=== PATIENT | male | born 1940 | race Caucasian/White ===

== ENCOUNTER 2023-05-03 06:08 | Inpatient (IN) | payer MEDICARE, OTHER, SELFPAY ==
[2023-05-02 20:51] VITALS: BP 148/86
[2023-05-02 21:11] VITALS: BP 104/60
[2023-05-02 22:00] VITALS: BP 123/80; BMI 38.0
[2023-05-02] MEDS: ZOFRAN 4 MG IV (22:03)
[2023-05-02] MEDS: LR 1000 IV (22:05)
[2023-05-02 22:12] LABS: % Basophils 0.2 % (0-2); % Eosinophils 0.1 % (0-6); % Immature Granulocytes 0.1 % (0-0.5); % Lymphocytes 4.4 % (20.5-51.1); % Monocytes 15.5 % (1.7-9.3); % Neutrophils 79.7 % (42.2-75.2); Absolute Lymphocytes 0.4 10^3/uL (1.2-3.4); Absolute Monocytes 1.3 10^3/uL (0.1-0.6); Absolute Neutrophils 6.8 10^3/uL (1.4-6.5); Hematocrit 43.6 % (39.0-52.0); Hemoglobin 15.4 g/dL (13.0-18.0); Mean Corp Hgb Conc. 35.3 g/dL (33.0-37.0); Mean Corpuscular Hgb 34.7 pg (27.0-31.0); Mean Corpuscular Volume 98.2 fL (80.0-94.0); Mean Platelet Volume 9.8 fL (7.4-10.4); Nucleated Red Blood Cells % 0 % (-); Platelet Count 179 10^3/uL (130-400); Red Blood Cell Count 4.44 10^6/uL (4.70-6.10); Red Cell Dist. Width 12.8 % (11.5-14.5); White Blood Cell Count 8.5 10^3/uL (4.8-10.8)
[2023-05-02 22:26] LABS: ALT (SGPT) 21 U/L (0-50); AST (SGOT) 29 U/L (17-59); Albumin 4.9 g/dl (3.5-5.0); Alkaline Phosphatase 81 U/L (38-126); Blood Urea Nitrogen 34 mg/dl (9-20); Calcium 10.3 mg/dl (8.4-10.2); Carbon Dioxide 23 mmol/L (22-30); Chloride 101 mmol/L (98-107); Glucose 168 mg/dl (70-99); Lactic Acid 3.4 mmol/L (0.7-2.0); Potassium 4.8 mmol/L (3.5-5.1); Sodium 141 mmol/L (135-145); Total Bilirubin 0.9 mg/dl (0.2-1.3); Total Protein 8.1 g/dl (6.3-8.2); eGFR 54.85
--- NOTE | 2023-05-02 22:46 | ED.GENMED ---
History of Present Illness
General
Chief Complaint: Abdominal Symptoms
Time Seen by Provider: 05/02/23 21:32
Travel History
Have you had any contact with someone who has COVID-19?: No
Do you have any symptoms of coronavirus? Fever > 100 degrees, chills, cough, shortness of breath, sore throat, loss of taste or smell, muscle aches, or headache?: No
History of Present Illness
History of Present Illness:
83-year-old male with history of a partial colon resection, hypertension, and hyperlipidemia presents to the emergency department for evaluation of nausea and vomiting ongoing for the past 24 hours. He reports generalized abdominal pain as well.
Did have a small bowel movement earlier this morning but denies any flatus or diarrhea since that time. Noted to be febrile on arrival, patient notes he feels weak but did not note a fever. Denies any chest pain or shortness of breath. Distant
history of small bowel obstruction that was treated nonoperatively
Past History
Past History
ED Past Medical History: CAD, Cancer (colon cancer), CHF, HTN, Hypercholesterolemia and Other (BPH)
ED Past Surgical History: Orthopedic (Lumbar decompression laminectomy 2010 and 2014) and Other (COLON RESECTION)
Social History
Tobacco: Former smoker
Alcohol: None
Drug: None
Personal:
Living: alone
Employment: Employed
Family History
Family History: Other
Review of Systems
Review of Systems
Allergies reviewed?: Yes
All Other Systems: ROS reviewed and negative except as documented in HPI and ROS
Phy Exam
Physical Exam
Physical Exam:
GEN: Well appearing, NAD, WDWN
Eyes: PERRLA, EOMs intact, no scleral icterus
HENT: NCAT, oral mucosa dry
Lungs: CTAB, no wheezes, rales, rhonchi, normal chest wall excursion
Cardiac: Tachycardic, regular, no murmurs or rubs
Abdomen: Abdomen is soft, minimal tenderness throughout all 4 quadrants, no peritoneal signs or rigidity
Neuro: AO x 3
MSK: No gross deformity or ecchymosis.
Skin: No rashes, petechiae. Normal color, no pallor or jaundice.
Psych: Calm, cooperative, proper hygiene
Course
Orders/Labs/Results
Orders:
Orders
05/02/23 20:53
Electrocardiogram (*1) Urgent
Reason for Study: Bradycardia / Tachycardia
EKG- Treatment ONCE
05/02/23 21:44
CT Abd/Pel (IV only)-DH only Urgent
Comment:
Reason For Exam: abd pain, vomiting
Ondansetron Injectable [Zofran] 4 mg IV NOW STA
05/02/23 21:45
Blood Culture Q30M
[facility] Source: Blood/Venous
Specimen Description:
Lactated Ringers [Lr] 1,000 ml IV BOLUS
05/02/23 22:01
Complete Blood Count/With Diff Urgent
Comprehensive Metabolic Panel Urgent
Lactic Acid Q4H
Comment: CANCEL 2nd LACTIC ACID IF 1st LACTIC ACID IS LESS THAN 2
Blood Culture Q30M
[facility] Source: Blood/Venous
Specimen Description:
05/02/23 22:49
Acetaminophen [Tylenol] 650 mg PO NOW STA
Lactated Ringers [Lr] 500 ml IV BOLUS
05/03/23 00:13
NG Tube [GI tube insertion- Treatment] ONCE
05/03/23 01:45
Lactic Acid Q4H
Comment: CANCEL 2nd LACTIC ACID IF 1st LACTIC ACID IS LESS THAN 2
Abnormal Lab Results
05/02/23
22:01
RBC 4.44 L 10^6/uL
(4.70-6.10)
MCV 98.2 H fL
(80.0-94.0)
MCH 34.7 H pg
(27.0-31.0)
Absolute Neuts (auto) 6.8 H 10^3/uL
(1.4-6.5)
Absolute Lymphs (auto) 0.4 L 10^3/uL
(1.2-3.4)
Absolute Monos (auto) 1.3 H 10^3/uL
(0.1-0.6)
Neutrophils % 79.7 H %
(42.2-75.2)
Lymphocytes % 4.4 L %
(20.5-51.1)
Monocytes % 15.5 H %
(1.7-9.3)
BUN 34 H mg/dl
(9-20)
Glucose 168 H mg/dl
(70-99)
Lactic Acid 3.4 H mmol/L
(0.7-2.0)
Calcium 10.3 H mg/dl
(8.4-10.2)
05/02/23 22:01
05/02/23 22:01
Vital Signs
Initial and Last Documented VS:
Initial Vital Signs
Temp Pulse Resp BP Pulse Ox
101.1 F H 121 18 148/86 98
05/02/23 20:51 05/02/23 20:51 05/02/23 20:51 05/02/23 20:51 05/02/23 20:51
Last Documented Vital Signs
Temp Pulse Resp BP Pulse Ox
101.1 F H 97 24 130/72 91
05/02/23 20:51 05/03/23 00:30 05/03/23 00:30 05/03/23 00:00 05/03/23 00:30
MDM/Problems Addressed
MDM/Problems Addressed:
Initial evaluation the patient was felt to most likely be displaying signs and symptoms of gastroenteritis/viral GI illness given acute fever however imaging was ordered due to prior history of small bowel obstruction and significant abdominal
surgical history. CT ultimately showed a definitive small bowel obstruction with a transition point. On reassessment the patient's pain is improved however he does have some reproducible tenderness. NG tube placed with large amount of air and
small volume of liquid returning. Will be admitted to the hospitalist service, general surgery made aware for consultation.
*Critical Care Note
Total Time (30-74mins, 75-104mins- exclusive of procedures): Not Applicable
ED Attending Note
-
Portions of this chart may have been created with voice recognition software.� Occasional wrong word or��sound alike� substitutions may have occurred due to the inherent limitations of voice recognition software.
Discharge Plan
Departure
Patient Disposition: Admit
Date of Disposition: 05/03/23
Time of Disposition: 00:37
Presentation/result/management discussed w/ accepting MD/DO: Hospitalist
Discharge Problem:
Small bowel obstruction
Prescriptions:
No Action
amlodipine 2.5 MG tablet
2.5 mg PO DAILY
allopurinol 300 MG tablet
300 mg PO DAILY
escitalopram oxalate 10 MG tablet
10 mg PO DAILY
gabapentin 300 MG capsule
300 mg PO BID
aspirin 81 MG tablet,chewable
81 mg PO DAILY
fluticasone propionate 1 SPRAY spray,suspension
1 spray intranasal DAILYPRN PRN (Reason: nasal congestion)
rosuvastatin 20 MG tablet
20 mg PO QPM Qty: 90 5RF
ferrous sulfate [FeroSul] 325 mg (65 mg iron) Tablet
325 mg PO DAILY Qty: 30 0RF
Eliquis 2.5 mg Tablet
2.5 mg PO BID
pantoprazole 40 mg tablet,delayed release (DR/EC)
40 mg PO DAILY
furosemide 20 mg tablet
20 mg PO DAILY
metoprolol succinate 25 MG tablet extended release 24 hr
25 mg PO BID
miconazole nitrate [Miconazorb AF] 2 % Powder
1 applic topical BID Qty: 85 0RF
cyanocobalamin (vitamin B-12) 1,000 mcg Tablet
1,000 mcg PO DAILY Qty: 30 0RF
Referrals:
Radhames Mariano, [Family Provider] -
Interventions
Interventions:
*Risk Screen - Suicide Last Done: 05/02/23 20:51
*General Assessment Last Done: 05/02/23 20:51
*Neglect/Abuse Screening Last Done: 05/02/23 20:51
ED- Fall Risk Assessment Last Done: 05/02/23 22:00
*ED COVID-19 Vaccine History Last Done: 05/02/23 20:51
IX-Pedxal-Yozzyysqmz Assessment Last Done: 05/02/23 22:00
[2023-05-02] MEDS: TYLENOL 650 MG PO (22:55)
[2023-05-02 23:00] VITALS: BP 113/52
[2023-05-03] VITALS (15 sets, daily range): BP systolic 129–179; BP diastolic 72–105; BMI 37.3
[2023-05-03] MEDS: LR 500 IV (00:23)
--- NOTE | 2023-05-03 04:48 | HPS.HSE ---
Family Physician
-
Family Physician: Radhames Mariano
Chief Complaint
-
N/V
History of Present Illness
Patient is an 83y M with PMH significant for colon cancer s/p resection, CHF and DM-II who presents to ED complaining of N/V x 24 hours. Patient states that he felt fairly well on Thursday evening when going to bed. He woke around 2 AM on
Thursday with nausea and has had multiple episodes of non-bloody, bilious emesis. Patient has attempted to take in oral fluids over the past 24 hours, but this only resulted in additional emesis. He notes some crampy very low abdominal / pelvic
pain that preceded episodes of emesis.
Patient states that he moved his bowels around 3 AM and this was fairly normal appearing. He has not had any BM or passed any flatus since that time.
With ongoing N/V and inability to tolerate PO, patient presented to the ED for further evaluation.
He states that he has started to feel somewhat tremulous and notes that he has had this sensation in the past with dehydration.
Patient notes that he has had one prior SBO. This resolved with supportive care alone.
He had a colon resection done several years ago and no other intra-abdominal surgeries.
He denies any recent sick contacts.
He has some cough / congestion that he states has only developed since his arrival in the ED. He denies any evident episodes of choking / aspiration in the past 24 hours.
Medical History
Past Medical History
Past Medical History: Reports Other
Additional Past Medical History:
Colon Cancer
Chronic HFpEF
Hypertension
Dyslipidemia
BPH
Lumbar DDD
ASCVD
Aortic stenosis
Complete heart block with permanent pacemaker
Sleep apnea
Hypothyroidism
Spinal stenosis
Diabetes mellitus type 2
Obesity
Past Surgical History: Reports Other
Additional Past Surgical History:
Partial Colectomy
Lumbar Laminectomy
PTCA with Stent
PPM Placement
Left Shoulder Surgery
Left Eye Surgery
Social History
Tobacco: Non-smoker
Alcohol: None
Drug: None
Family History
Family History: Not pertinent
Allergies / Home Medications
Allergies reflects when Allergies were last updated in [employer].
Home Medications with original date entered in [employer]
Allergy/Medication List:
Allergies
Allergy/AdvReac Type Severity Reaction Status Date / Time
methimazole Allergy serum Verified 01/11/23 11:10
sickness
oxycodone HCl [From Percocet] Allergy hyperactivi Verified 01/11/23 11:10
ty
Sulfa (Sulfonamide Allergy serum Verified 01/11/23 11:10
Antibiotics) sickness
trimethoprim Allergy Unknown Verified 01/11/23 11:10
Home Medications
allopurinol 300 mg tablet 300 mg PO DAILY Gout 06/19/17
escitalopram oxalate 10 mg tablet 10 mg PO DAILY Mental Health/Anxiety 06/19/17
aspirin 81 mg chewable tablet 81 mg PO DAILY Blood clot prevention/tx 03/18/21
gabapentin 300 mg capsule 300 mg PO BID Neurological Condition 03/18/21
rosuvastatin 20 mg tablet 20 mg PO QPM #90 tabs 03/19/21
ferrous sulfate 325 mg (65 mg iron) tablet (FeroSul) 325 mg PO DAILY #30 tabs 03/09/22
apixaban 2.5 mg tablet (Eliquis) 2.5 mg PO BID Blood Clot Prevention/Tx 01/11/23
furosemide 20 mg tablet 20 mg PO DAILY Fluid Retention/Swelling 01/11/23
pantoprazole 40 mg tablet,delayed release 40 mg PO DAILY Gastrointestinal Issue 01/11/23
metoprolol succinate 25 mg tablet,extended release 24 hr 25 mg PO BID Heart Failure 01/12/23
cyanocobalamin (vitamin B-12) 1,000 mcg tablet 1,000 mcg PO DAILY #30 tabs 01/19/23
Review of Systems
-
History Source: Patient
A 12 point ROS was completed and negative except as noted: Yes
Constitutional: Reports Weight Loss (patient notes 6 lbs weight loss in the past 24 hours.) and Fatigue; Denies Fever
EENT: Denies Sore Throat
Respiratory: Reports Cough; Denies Hemoptysis or Trouble Breathing
Cardiac: Denies Chest Pain or Palpitations
Abdomen/GI: Reports Abdominal Pain, Nausea and Vomiting; Denies Diarrhea, Constipated, Bloody Stools or Black Stools
: Denies Dysuria or Flank Pain
Musculoskeletal: Denies Joint Pain or Edema
Neurological: Reports Other (Tremulous); Denies Dizzy or Headache
Psych: Denies Depression or Anxiety
Physical Exam
Vital Signs
Vital Signs
Temp Pulse Resp BP Pulse Ox
101.1 F H 125 31 132/74 91
05/02/23 20:51 05/03/23 03:15 05/03/23 03:15 05/03/23 03:00 05/03/23 03:15
Physical Exam
General: Other (83y M in no acute distress at present.)
HEENT: Moist mucous membranes and PERRLA
Respiratory: Other (Decreased BS at bases. Otherwise clear.)
Cardiac: S1/S2, Irregular Rhythm and Murmur (II/ BRENDAN)
GI: Other (Abdomen is distended and tympanic. Pos tenderness along lower abdomen. Pos high-pitched bowel sounds.)
Musculoskeletal: No Clubbing, No Cyanosis and No Edema
Neuro: AO x 3
Laboratory Results
-
05/02/23 22:01
05/02/23 22:01
Laboratory Results
Lactic Acid 3.4 mmol/L (0.7-2.0) H 05/02/23 22:01
Total Bilirubin 0.9 mg/dl (0.2-1.3) 05/02/23 22:01
AST 29 U/L (17-59) 05/02/23 22:01
ALT 21 U/L (0-50) 05/02/23 22:01
Alkaline Phosphatase 81 U/L (38-126) 05/02/23 22:01
Impression/Plan
-
A/P: Patient is an 83y M with PMH significant for colon cancer s/p resection, hypertension and CHF who presents to ED complaining of N/V for the past 24 hours.
SBO
Intractable N/V secondary to the above
- Admit for further evaluation and treatment.
- Maintain NG decompression and follow for BM, flatus, etc.
- CT scan shows dilated SB loops with apparent transition in the right mid-abdomen.
- Surgery evaluation in the AM.
- Follow for clinical improvement.
Fever
- ? GI in origin - symptoms initially seemed c/w gastroenteritis - versus pulmonary pneumonia / aspiration.
- IV abx for now with Zosyn.
- Check CXR. Check COVID.
- Follow fever curve and follow for any new / worsening focal symptoms.
- Follow-up culture data.
Chronic HFpEF
- Stable. Not volume overloaded at present - s/p volume losses and 6 pounds weight loss in the past 24 hours.
- Hold diuretics.
- Gentle IVFs overnight.
- Follow I/Os, daily weights, etc.
ASCVD
- Stable. No chest pain or dyspnea.
- Continue daily ASA and other CV medications.
Paroxysmal Atrial Fibrillation
Heart Block s/p PPM
- Stable. Paced rhythm on tele.
- Hold Eliquis acutely in the event that any intervention is needed.
- Continue metoprolol.
- Monitor on tele.
Benign Hypertension
- Stable. Continue med regimen and adjust as needed.
DM-II
- Stable. Currently diet-controlled and off of all medications.
- Follow glucose and cover with SSI if needed.
Obesity due to excess calories
- Affects all aspects of care.
- Encourage healthy diet and increased activity with goal of weight loss.
DVT Prophylaxis: SCDs while Eliquis on hold.
Code Status: Full
[2023-05-03 05:42] LABS: COVID-19 Antigen Negative (Negative)
[2023-05-03 06:38] LABS: Lactic Acid 1.5 mmol/L (0.7-2.0)
[2023-05-03 09:13] LABS: Glucose - Point of Care 163 mg/dl (70-99)
[2023-05-03] MEDS: ZOSYN 50 IV ×3 (10:12→21:30)
[2023-05-03] MEDS: NSS 1000 IV ×2 (10:13→21:29)
--- NOTE | 2023-05-03 10:39 | CON.GS ---
Addendum entered and electronically signed by Fabien Martinez MD 05/03/23 11:57:
Patient seen and examined with FILE CLERK DATA ENTRY. Agree with assessment plan as documented below.
Patient is an 83 yo M with a PMH of HTN, HLD, CHF, CAD s/p PCI with stent, moderate AAS, NIDDM, JOSE (CPAP), CKD, BPH, and s/p open descending/splenic flexure partial colectomy for a polyp who presents with abdominal pain and distention. Mr. Flores
states that his symptoms began somewhat acutely approximately 24 hours ago. He describes progressive abdominal pain and distention prompting presentation to the ED. Multiple episodes of nausea and vomiting. Passed a small bowel movement
yesterday, but none since. No recent flatus. NGT placed in the ED with mild improvement in symptoms and resolution of nausea.
Of note, he is currently on Eliquis for 'clot prevention' per his Bank Worker; his most recent dosing was yesterday evening
Gen: NAD
Abd: soft, mild tenderness diffusely, distended, tympanitic, non-peritoneal, midline incision well healed
Labs and imaging were reviewed.
Patient is an 83 yo M p/w adhesive SBO.
Natural history and pathophysiology of bowel obstructions was reviewed. Location appears to be in the right mid abdomen, with a transition point appreciated. No radiographic findings concerning for bowel ischemia (pneumatosis) or free air.
Patient clinically stable. Unable to completely explain his fever apart from a SIRS response, and possible aspiration pneumonia, possible infiltrate on CXR and CT (final read on chest x-ray pending). Normal WBC, lactate normalized. Increased
operative risk at this time given recent Eliquis dosage. Recommend a trial of medical management. Will continue to follow. All questions answered.
-- NPO, IVF, NGT decompression
-- No PO contrast to follow-up on repeat X-ray
-- Repeat Abd X-ray to confirm NGT placement
-- Hold Eliquis
Original Note:
Medical History
-
Chief Complaint: abdominal pain
History of Present Illness:
This is an 83 yo male with a h/o descending/splenic flexure colon resection for polyp, HF, CAD with stent 2021, on Eliquis prescribed by his twister operator, and prior SBO's requiring hospitalization in 2017 and 2020 who presents with a little over 24
hour history of abdominal pain which began in the middle of the night awakening him from sleep early Thursday morning. He was able to pass a small BM at that time but has not had a BM or passed flatus since. He notes nausea and vomiting as well
which persisted causing him to present for evaluation. NGT was placed in the ED with improvement in symptoms and resolution of nausea. On exam he has minimal diffuse tenderness with distended, tympanitic abdomen.
Past Medical History
Past Medical History: CAD (stent LAD), CHF, HTN, Hypercholesterolemia, Hypothyroidism, NIDDM and Other (Moderate , CM, JOSE-cpap, CKD, BPH, CHB with PPM)
Past Surgical History: Cardiac (stent, ppm), Orthopedic (Laminectomy x2, left shoulder) and Other (sinus surgery, left eye surgery)
Social History
Tobacco: Non-Smoker
Alcohol: None
Personal:
Family History
Family History: Reviewed & Not Pertinent
Allergies / Home Medications
Allergy/AdvReac Type Severity Reaction Status Date / Time
methimazole Allergy serum Verified 01/11/23 11:10
sickness
oxycodone HCl [From Percocet] Allergy hyperactivi Verified 01/11/23 11:10
ty
Sulfa (Sulfonamide Allergy serum Verified 01/11/23 11:10
Antibiotics) sickness
trimethoprim Allergy Unknown Verified 01/11/23 11:10
Medication Instructions Recorded Confirmed Type
allopurinol 300 mg tablet 300 mg PO DAILY Gout 06/19/17 05/03/23 History
escitalopram oxalate 10 mg tablet 10 mg PO DAILY Mental 06/19/17 05/03/23 History
Health/Anxiety
aspirin 81 mg chewable tablet 81 mg PO DAILY Blood clot 03/18/21 05/03/23 History
prevention/tx
gabapentin 300 mg capsule 300 mg PO BID Neurological 03/18/21 05/03/23 History
Condition
rosuvastatin 20 mg tablet 20 mg PO QPM #90 tabs 03/19/21 05/03/23 Rx
ferrous sulfate 325 mg (65 mg 325 mg PO DAILY #30 tabs 03/09/22 05/03/23 Rx
iron) tablet (FeroSul)
apixaban 2.5 mg tablet (Eliquis) 2.5 mg PO BID Blood Clot 01/11/23 05/03/23 History
Prevention/Tx
furosemide 20 mg tablet 20 mg PO DAILY Fluid 01/11/23 05/03/23 History
Retention/Swelling
pantoprazole 40 mg tablet,delayed 40 mg PO DAILY Gastrointestinal 01/11/23 05/03/23 History
release Issue
metoprolol succinate 25 mg 25 mg PO BID Heart Failure 01/12/23 05/03/23 History
tablet,extended release 24 hr
cyanocobalamin (vitamin B-12) 1,000 mcg PO DAILY #30 tabs 01/19/23 05/03/23 Rx
1,000 mcg tablet
Review of Systems
-
History Source: Patient
All other systems: Negative unless noted
A 10 point review of systems was completed, and was negative except as per HPI.
Physical Exam
Vital Signs
Temp Pulse Resp BP Pulse Ox
101.1 F H 82 26 170/84 88
05/02/23 20:51 05/03/23 09:30 05/03/23 09:30 05/03/23 08:00 05/03/23 08:30
05/02/23 05/03/23 05/04/23
05:59 06:59 06:59
Actual Weight
Body Mass Index (BMI) 38.0
Lab Results
05/02/23 22:01
05/02/23 22:01
WBC 8.5 10^3/uL (4.8-10.8) 05/02/23 22:
Hgb 15.4 g/dL (13.0-18.0) 05/02/23:
Hct 43.6 % (39.0-52.0) 05/02/23 22:
Plt Count 179 10^3/uL (130-400) 05/02/23 22:
Abs Immat Gran (auto) 0.0 10^3/uL (0-0.05) 05/02/23:
Neutrophils % 79.7 % (42.2-75.2) H 05/02/23 22:
Physical Exam
General: Well Developed and Well Nourished
HEENT: Moist Mucous Membranes
Respiratory: Non Labored Respirations
GI: Soft, Tender (mild generalized, FILE CLERK DATA ENTRY) and Distended (tympanitic)
Skin: Warm and Dry
Neuro: Awake, Alert and AO x 3
Psych: Calm
Data Reviewed
-
CT Scan: Image Personally Visualized and interpreted, Report Reviewed by me, Discussed with Physician and Discussed with Patient
Labs: Labs Reviewed by me, Discussed with Physician and Discussed with Patient
Old Records: Reviewed
Assessment / Plan
-
This is an 83 yo male with a h/o descending/splenic flexure colon resection for polyp, HF, , CAD with stent 2021, on Eliquis prescribed by his twister operator, and prior SBO's requiring hospitalization in 2017 and 2020 who presents with n/v and
abdominal pain. CT imaging reviewed and consistent with small bowel obstruction with transition point in the right midabdomen likely secondary to adhesions from prior surgery. No free air or evidence of bowel threat noted. AFVSS, No leukocytosis.
Symptoms improving with NGT placement.
--No emergent plans for surgery today, will follow with supportive care for resolution. Please hold Eliquis in case surgery is needed this admission
--Continue NPO with NGT to LIWS
--IVF while NPO
--Medical management as per primary team
[2023-05-03 14:32] LABS: Glucose - Point of Care 140 mg/dl (70-99)
--- NOTE | 2023-05-03 15:16 | W.PN.HOSP.TC ---
Today's Communication/Plan
-
continue NG tube decompression
Assessment / Plan
Assessment / Plan
A/P:� Patient is an 83y M with PMH significant for s/p resection of descending colon/splenic flexure for extensive benign polyp 2000, hypertension and CHF who presents to ED complaining of N/V for the past 24 hours.
SBO
Intractable N/V secondary to the above
�- Maintain NG decompression and follow for BM, flatus, etc.
�- CT scan shows: 1). Mid small bowel obstruction with transition point in the right right midabdomen
2). Moderate interstitial airway disease at the basilar portion of the right middle lobe worrisome for pneumonia
3). Bilateral renal cysts measuring up to 4 cm
�- Surgery evaluation noted and appreciated
�- Follow for clinical improvement.
Fever
�- ? GI in origin - symptoms initially seemed c/w gastroenteritis - versus pulmonary pneumonia / aspiration.
�- IV abx for now with Zosyn.
Neg COVID.
�- Follow fever curve and follow for any new / worsening focal symptoms.
�- Follow-up culture data.
Chronic HFpEF
�- Stable.� Not volume overloaded at present - s/p volume losses and 6 pounds weight loss in the past 24 hours.
�- Hold diuretics.
�- Gentle IVFs .
�- Follow I/Os, daily weights, etc.
ASCVD
�- Stable.� No chest pain or dyspnea.
�- Continue daily ASA and other CV medications.
Paroxysmal Atrial Fibrillation
Heart Block s/p PPM
�- Stable.� Paced rhythm on tele.
�- Hold Eliquis acutely in the event that any intervention is needed.
�- Continue metoprolol.
�- Monitor on tele.
Benign Hypertension
�- Stable. Continue med regimen and adjust as needed.
DM-II
�- Stable.� Currently diet-controlled and off of all medications.
�- Follow glucose and cover with SSI if needed.
Obesity due to excess calories
�- Affects all aspects of care.
�- Encourage healthy diet and increased activity with goal of weight loss.
DVT Prophylaxis:� SCDs while Eliquis on hold.
Code Status:� Full
Anticipated Discharge: > 48 hours
Subjective/Interval History
-
Date of Service: May 03, 2023
No BM or flatus since onset of abdominal distention
Objective Data
-
Vital Signs:
Vital Signs
Temp Pulse Resp BP Pulse Ox
99.5 F 82 18 150/79 92
05/03/23 14:52 05/03/23 14:52 05/03/23 14:52 05/03/23 14:52 05/03/23 14:52
I&O
05/02/23 05/03/23 05/04/23
05:59 06:59 06:59
Output Total 800 / 800
Balance -800 / -800
Review of Systems
-
History Source: Patient and Coordinated Provider
Constitutional: Reports Fever (101.1 at 20:51)
EENT: Reports No Symptoms Reported
Respiratory: Reports No Symptoms
Cardiac: Reports No Symptoms
Abdomen/GI: Reports Abdominal Pain, Nausea, Constipated and Bloated
Genitourinary: Reports No Symptoms
Physical Exam
-
General: Well Developed, Well Nourished and No Apparent Distress
HEENT: Normocephalic, Atraumatic and Moist Mucous Membranes
Respiratory: Clear to Auscultation
Cardiac: Regular Rhythm and S1/S2
GI: Nontender; Negative Nondistended or Normal Bowel Sounds (markedly diminished bowel sounds)
Skin: Warm and Dry
Neuro: Awake, Alert and Oriented
[2023-05-03] MEDS: COMPAZINE 5 MG IV (17:57)
[2023-05-03] MEDS: LOPRESSOR 5 MG IV (20:36)
[2023-05-04] LABS: Glucose - Point of Care 133 mg/dl (70-99)
[2023-05-04] MEDS: NOVOLOG FLEXPEN-LOW RESISTANCE SC ×4 (00:01→16:43)
[2023-05-04] MEDS: LOPRESSOR 5 MG IV ×4 (02:14→21:26)
[2023-05-04 03:03] VITALS: BP 170/83
[2023-05-04] MEDS: ZOSYN 50 IV ×4 (03:30→21:25)
[2023-05-04 05:06] VITALS: BMI 36.5
[2023-05-04 05:47] LABS: Glucose - Point of Care 148 mg/dl (70-99)
[2023-05-04 07:20] VITALS: BP 174/99
[2023-05-04 07:23] LABS: Glucose - Point of Care 143 mg/dl (70-99)
[2023-05-04 07:32] LABS: Blood Urea Nitrogen 34 mg/dl (9-20); Calcium 9.7 mg/dl (8.4-10.2); Carbon Dioxide 27 mmol/L (22-30); Chloride 101 mmol/L (98-107); Estimated Creatinine Clearance 44 ml/min; Glucose 156 mg/dl (70-99); Sodium 142 mmol/L (135-145); eGFR 50.18
[2023-05-04 07:41] LABS: Hematocrit 45.4 % (39.0-52.0); Hemoglobin 15.2 g/dL (13.0-18.0); Mean Corp Hgb Conc. 33.5 g/dL (33.0-37.0); Mean Corpuscular Hgb 34.2 pg (27.0-31.0); Mean Corpuscular Volume 102.3 fL (80.0-94.0); Mean Platelet Volume 10.2 fL (7.4-10.4); Platelet Count 182 10^3/uL (130-400); Red Blood Cell Count 4.44 10^6/uL (4.70-6.10); Red Cell Dist. Width 12.6 % (11.5-14.5); White Blood Cell Count 7.7 10^3/uL (4.8-10.8)
[2023-05-04 09:27] LABS: Glycohemoglobin (HgbA1c) 6.1 % (4.0-5.6)
--- NOTE | 2023-05-04 10:17 | W.PN.GS2 ---
Today's Communication / Plan
-
NGT/NPO
Hold Eliquis
Assessment / Plan
-
Patient is an 83 yo M with a PMH of HTN, HLD, CHF, CAD s/p PCI with stent, moderate AAS, on Eliquis (LD 3 @1800), NIDDM, JOSE (CPAP), CKD, BPH, s/p open descending/splenic flexure partial colectomy for a polyp in 2000 and 2 prior SBO's (2017, 2020)
both resolving without surgical intervention who presents with p/w adhesive SBO. Fever on presentation but currently afebrile without leukocytosis. NGT with high outputs. F/U XR this am with persistent obstruction.
Trial of medical management with bowel decompression
-- NPO, IVF, NGT decompression
-- No PO contrast to follow-up on repeat X-ray
-- Continue ABX
-- Hold Eliquis
Subjective Data
-
Date of Service: May 04, 2023
Patient seen and examined at bedside with Dr. Veliz. Denies n/v. Abdominal discomfort to the right side. Bloating persists. Has been OOB walking. Denies passage of flatus.
Objective Data
-
Intake and Output
05/03/23 05/04/23 05/05/23
06:59 06:59 06:59
Intake Total 90 / 90
Output Total 1700 / 1700
Balance -1610 / -1610
Intake:
Amount instilled into GI Tube ( 90 / 90
Total)
[place] Sump 90 / 90
Output:
Gastrointestinal tube output ( 1700 / 1700
Total)
[place] Sump 900 / 900
Other:
Number of unmeasured voidings 1
Number of approximated MODERATE 2
amounts of urine
Vital Signs
Temp Pulse Resp BP Pulse Ox
98.2 F 97 20 174/99 91
05/04/23 07:20 05/04/23 08:07 05/04/23 07:20 05/04/23 08:07 05/04/23 07:20
Lab Results
05/04/23 06:38
05/04/23 06:38
Calcium 9.7 mg/dl (8.4-10.2) 05/04/23 06:38
Total Bilirubin 0.9 mg/dl (0.2-1.3) 05/02/23 22:01
AST 29 U/L (17-59) 05/02/23 22:01
ALT 21 U/L (0-50) 05/02/23 22:01
Alkaline Phosphatase 81 U/L (38-126) 05/02/23 22:01
Total Protein 8.1 g/dl (6.3-8.2) 05/02/23 22:01
Albumin 4.9 g/dl (3.5-5.0) 05/02/23 22:01
Physical Exam
-
NAD, Ox3
ABD distention/tympanitic, mild tenderness to the right abd, NGT with brown/bilious outputs
[2023-05-04 11:10] VITALS: BP 170/92
[2023-05-04] MEDS: NSS 1000 IV ×2 (11:28→23:12)
[2023-05-04 11:50] LABS: Glucose - Point of Care 136 mg/dl (70-99)
--- NOTE | 2023-05-04 13:06 | W.PN.HOSP.TC ---
Today's Communication/Plan
-
Heparin 5000 q8h will be started
continue NG decompression
Assessment / Plan
Assessment / Plan
A/P:� Patient is an 83y M with PMH significant for s/p resection of descending colon/splenic flexure for extensive benign polyp 2000, hypertension and CHF who presents to ED complaining of N/V for the past 24 hours.
SBO
Intractable N/V secondary to the above
�- Maintain NG decompression and follow for BM, flatus, etc. Abd definitely softer with NG decompression
�- CT scan shows: 1). Mid small bowel obstruction with transition point in the right right midabdomen
2). Moderate interstitial airway disease at the basilar portion of the right middle lobe worrisome for pneumonia
3). Bilateral renal cysts measuring up to 4 cm
�- Surgery evaluation noted and appreciated
�- Follow for clinical improvement.
Fever
�- ? GI in origin - symptoms initially seemed c/w gastroenteritis - versus pulmonary pneumonia / aspiration.
�- IV abx for now with Zosyn.
Neg COVID.
�- Follow fever curve and follow for any new / worsening focal symptoms.
�- Follow-up culture data NGTD
Chronic HFpEF
�- Stable.� Not volume overloaded at present - s/p volume losses and 6 pounds weight loss in the past 24 hours.
�- Hold diuretics.
�- Gentle IVFs .
�- Follow I/Os, daily weights, etc.
ASCVD
�- Stable.� No chest pain or dyspnea.
�- will hold oral medications in pt with sbo
Paroxysmal Atrial Fibrillation
Heart Block s/p PPM
�- Stable.� Paced rhythm on tele.
�- Hold Eliquis acutely in the event that any intervention is needed.
�- Continue metoprolol.
�- Monitor on tele.
input from General Surgery, okay to start Heparin 5000 q8h
Benign Hypertension
�- Stable. Continue med regimen and adjust as needed.
DM-II
�- Stable.� Currently diet-controlled and off of all medications.
�- Follow glucose and cover with SSI if needed.
Obesity due to excess calories
�- Affects all aspects of care.
�- Encourage healthy diet and increased activity with goal of weight loss.
DVT Prophylaxis:� SCDs while Eliquis on hold.
will start Heparin
Code Status:� Full
Anticipated Discharge: > 48 hours
Subjective/Interval History
-
Date of Service: May 04, 2023
Generally feels better,but still not passing flatus or stool
Objective Data
-
Labs:
Laboratory Results
05/04/23
06:38
WBC 7.7
Hgb 15.2
Hct 45.4
Plt Count 182
Sodium 142
Potassium 4.0
Chloride 101
Carbon Dioxide 27
BUN 34 H
Creatinine 1.4 H
Glucose 156 H
Calcium 9.7
Vital Signs:
Vital Signs
Temp Pulse Resp BP Pulse Ox
97.9 F 84 20 170/92 93
05/04/23 11:10 05/04/23 11:10 05/04/23 11:10 05/04/23 11:10 05/04/23 11:10
I&O
05/03/23 05/04/23 05/05/23
06:59 06:59 06:59
Intake Total 90 / 90
Output Total 1700 / 1700
Balance -1610 / -1610
Review of Systems
-
History Source: Patient and Coordinated Provider
Constitutional: Denies Fever (afebrile 36 hrs)
EENT: Reports No Symptoms Reported
Respiratory: Reports No Symptoms
Cardiac: Reports No Symptoms
Abdomen/GI: Reports Abdominal Pain, Nausea, Constipated and Bloated
Genitourinary: Reports No Symptoms
Physical Exam
-
General: Well Developed, Well Nourished and No Apparent Distress
HEENT: Normocephalic, Atraumatic and Moist Mucous Membranes
Respiratory: Clear to Auscultation
Cardiac: Regular Rhythm and S1/S2
GI: Nontender and Normal Bowel Sounds (bowel sounds are much more apparent,but remain scattered); Negative Nondistended (abdomen remains distended, but is definitely softer)
Musculoskeletal: No Clubbing, No Cyanosis and No Edema
Skin: Warm and Dry
Neuro: Awake, Alert and Oriented
[2023-05-04 15:20] VITALS: BP 176/98
--- NOTE | 2023-05-04 15:57 | CM ---
Alert awake oriented patient who lives alone in a 2 story home with 2 step to enter and bed and 12 steps to bathroom /bed . He is independent in driving and in all activities of daily living.He was offered VN he declined need.Pt has a NG tube at
present.
CPAP Rezmed
[facility] history
Pharmacy [facility]
PCP DR Mariano
PLAN Home Declined VN
[2023-05-04 16:36] LABS: Glucose - Point of Care 110 mg/dl (70-99)
[2023-05-04] MEDS: LOPRESSOR 2.5 MG IV (16:36)
[2023-05-04] MEDS: HEPARIN 5000 UNITS SC ×2 (16:38→23:06)
[2023-05-04 19:20] VITALS: BP 175/90
[2023-05-04 23:21] VITALS: BP 182/86
[2023-05-04 23:59] LABS: Glucose - Point of Care 129 mg/dl (70-99)
[2023-05-05] VITALS (13 sets, daily range): BP systolic 133–172; BP diastolic 57–94; BMI 36.2
[2023-05-05] MEDS: NOVOLOG FLEXPEN-LOW RESISTANCE SC ×5 (00:04→23:53)
[2023-05-05] MEDS: LOPRESSOR 5 MG IV ×3 (01:38→21:20)
[2023-05-05] MEDS: ZOSYN 50 IV ×3 (03:31→21:20)
[2023-05-05 05:55] LABS: Glucose - Point of Care 127 mg/dl (70-99)
[2023-05-05 07:40] LABS: % Basophils 0.3 % (0-2); % Eosinophils 0.2 % (0-6); % Immature Granulocytes 0.6 % (0-0.5); % Lymphocytes 8.6 % (20.5-51.1); % Monocytes 9.7 % (1.7-9.3); % Neutrophils 80.6 % (42.2-75.2); Absolute Immature Granulocytes 0.1 10^3/uL (0-0.05); Absolute Lymphocytes 0.8 10^3/uL (1.2-3.4); Absolute Monocytes 0.8 10^3/uL (0.1-0.6); Hemoglobin 14.4 g/dL (13.0-18.0); Mean Corp Hgb Conc. 33.5 g/dL (33.0-37.0); Mean Corpuscular Hgb 33.6 pg (27.0-31.0); Mean Corpuscular Volume 100.5 fL (80.0-94.0); Nucleated Red Blood Cells % 0 % (-); Platelet Count 173 10^3/uL (130-400); Red Blood Cell Count 4.28 10^6/uL (4.70-6.10); Red Cell Dist. Width 12.5 % (11.5-14.5); White Blood Cell Count 8.7 10^3/uL (4.8-10.8)
[2023-05-05] MEDS: HEPARIN 5000 UNITS SC ×2 (07:59→23:27)
[2023-05-05 08:08] LABS: Blood Urea Nitrogen 32 mg/dl (9-20); Calcium 9.7 mg/dl (8.4-10.2); Carbon Dioxide 25 mmol/L (22-30); Chloride 103 mmol/L (98-107); Estimated Creatinine Clearance 47 ml/min; Glucose 134 mg/dl (70-99); Potassium 3.4 mmol/L (3.5-5.1); Sodium 143 mmol/L (135-145); eGFR 54.85
--- NOTE | 2023-05-05 08:47 | W.PN.GS2 ---
Today's Communication / Plan
-
-- Laparoscopic possible open abdominal exploration, DENITA, possible bowel resection
Assessment / Plan
-
Patient is an 83 yo M with a PMH of HTN, HLD, CHF, CAD s/p PCI with stent, moderate AAS, on Eliquis (LD 3 @1800), NIDDM, JOSE (CPAP), CKD, BPH, s/p open descending/splenic flexure partial colectomy for a polyp in 2000 and 2 prior SBO's (2017, 2020)
both resolving without surgical intervention who presents with p/w adhesive SBO. Fever on presentation but currently afebrile without leukocytosis.
NGT with high outputs. F/U XRs with persistent obstruction.
Discussion with patient regarding options of continued medical management versus surgical exploration. The pros and cons of both approaches was discussed. Given the lack of improvement over the past 48 hours combined with his radiographic findings
of a tight transition point and significant proximal dilation with high NGT outputs would recommend surgical exploration. Patient is in agreement and willing to proceed.
Plan for a laparoscopic possible open abdominal exploration, lysis of adhesions, possible bowel resection. The procedure itself, as well as the risks, benefits, and alternatives was discussed. Specifically, we discussed the risks of bleeding,
infection, injury to surrounding structures (bowel), wound complications, ileus formation, and recurrence. Typical postprocedural recovery was discussed. All questions answered. Consent signed.
-- Laparoscopic possible open abdominal exploration, DENITA, possible bowel resection
-- NPO, IVF, NGT decompression
-- Continue ABX
-- Hold Eliquis
Subjective Data
-
Date of Service: May 05, 2023
Feels slightly improved with less distention and pain. No BM or flatus. Reports hiccuping, denies nausea or vomiting. Minimal ambulation. Afebrile.
Objective Data
-
Intake and Output
05/04/23 05/05/23 05/06/23
06:59 06:59 06:59
Intake Total 1160 / 1160 1310 / 1310
Output Total 2600 / 2600 2099 / 2099
Balance -1440 / -1440 -790 / -790
Intake:
Oral fluids 240 / 240
IV fluids (Total) 880 / 880 880 / 880
IV piggybacks 100 / 100 100 / 100
Amount instilled into GI Tube ( 180 / 180 90 / 90
Total)
[place] Sump 180 / 180 90 / 90
Output:
Gastrointestinal tube output ( 2600 / 2600 2099 / 2099
Total)
[place] Sump 1800 / 1800 2099
Other:
Number of unmeasured voidings 1
Number of approximated MODERATE 2 2
amounts of urine
Vital Signs
Temp Pulse Resp BP Pulse Ox
97.9 F 70 18 172/70 96
05/05/23 07:00 05/05/23 07:58 05/05/23 07:00 05/05/23 07:58 05/05/23 07:00
Lab Results
05/05/23 06:48
05/05/23 06:48
Calcium 9.7 mg/dl (8.4-10.2) 05/05/23 06:48
Total Bilirubin 0.9 mg/dl (0.2-1.3) 05/02/23 22:01
AST 29 U/L (17-59) 05/02/23 22:01
ALT 21 U/L (0-50) 05/02/23 22:01
Alkaline Phosphatase 81 U/L (38-126) 05/02/23 22:01
Total Protein 8.1 g/dl (6.3-8.2) 05/02/23 22:01
Albumin 4.9 g/dl (3.5-5.0) 05/02/23 22:01
Physical Exam
-
Gen: NAD
HEENT: bilious output
Abd: soft, mild diffuse tenderness, distended, tympanitic, non-peritoneal, prior midline well healed
--- NOTE | 2023-05-05 08:51 | W.SUR.PREOP ---
Pre-Operative Surgical Note
-
I have examined this patient prior to the performance of the scheduled procedure.
The patient's condition is unchanged from the time of the current History and
Physical and the patient is able to undergo the scheduled procedure.
--- NOTE | 2023-05-05 11:00 | PN.CDI ---
CDI
- -
CDI:
Physician Documentation Request
Admit Date: 05/03/23 06:08
Dear Doctor Matt,
Please review the following and provide your response in the progress notes.
Clinical Indicators:
Pt admitted with SBO likely 2/2 adhesions
Progress notes , ' Maintain NG decompression and follow for BM, flatus, etc. CT scan shows: 1). Mid small bowel obstruction with transition point in the right right midabdomen...'
Surgery progress note 05/04, ' ...with his radiographic findings of a tight transition point and significant proximal dilation with high NGT outputs would recommend surgical exploration...'
Please provide the suspected extent/severity of the documented SBO:
Partial
Complete
Other
Use of terms such as suspected, likely, concern for, or probable (associated with a specific diagnosis that is being evaluated, monitored, or treated as if it exists) are acceptable and can be coded in the inpatient setting, when documented at the
time of discharge.
Thank you,
Aliyah Cedeno RN
CDI Specialist
[place] [facility]
Please use your independent medical judgment in providing your response.
--- NOTE | 2023-05-05 11:10 | PN.CDI ---
CDI
- -
CDI:
Physician Documentation Request
Admit Date: 05/03/23 06:08
Dear Doctor Matt,
Please review the following and provide your response in the progress notes.
Clinical Indicators:
Pt admitted with SBO likely 2/2 adhesions
Documented per general surgery notes CKD
Documented per past visit 01/11/23 nephrology consult, ' CKD 3b with subnephrotic proteinuria (baseline serum creatinine 1.6 mg/DL October 2022)...'
Renal functions are as below
05/02/23 05/04/23
22:01 06:38
Creatinine 1.3 1.4
eGFR 54.85 50.18
05/05/23
06:48
Creatinine 1.3
eGFR 54.85
Please provide the suspected stage of CKD:
Stages of Chronic Kidney Disease*
Level Description GFR
G1 Normal or High >90
G2 Mildly decreased 60-89
G3a Mildly to moderately decreased 45-59
G3b Moderately to severely decreased 30-44
G4 Severely decreased 15-29
G5 Kidney failure <15
Use of terms such as suspected, likely, concern for, or probable (associated with a specific diagnosis that is being evaluated, monitored, or treated as if it exists) are acceptable and can be coded in the inpatient setting, when documented at the
time of discharge.
Thank you,
Aliyah Cedeno RN
CDI Specialist
[place] [facility]
Please use your independent medical judgment in providing your response.
*Source: Kidney Disease: Improving Global Outcomes (KDIGO) 2012
--- NOTE | 2023-05-05 11:18 | PN.CDI ---
CDI
- -
CDI:
Physician Documentation Request
Admit Date: 05/03/23 06:08
Dear Doctor Matt,
Please review the following and provide your response in the progress notes.
Clinical Indicators:
Pt admitted with SBO/Fever? GI in origin - symptoms initially seemed c/w gastroenteritis - versus pulmonary pneumonia / aspiration.IV abx for now with Zosyn.
General surgery consult,' ... Unable to completely explain his fever apart from a SIRS response, and possible aspiration pneumonia, possible infiltrate on CXR and CT ...'
On admission Tmax 101.1,HR 121,RR 31
Please clarify which of the following most accurately describes the status of the patient's infection:
Sepsis-POA
- Systemic manifestations of infection, with 2 or more SIRS criteria which include:
- Fever >100.4 degrees F or hypothermia < 96.8 degrees F
- Leukocytosis - WBC > 12,000 or leukopenia - WBC < 4,000 or > 10% bands
- Tachycardia > 90 beats per minute
- Tachypnea - RR > 20 breaths per minute or PaCO2 , 32mmHg
Source: [employer]ck Manual 2013
Gastroenteritis / Aspiration PNA /PNA only
Other
Use of terms such as suspected, likely, concern for, or probable (associated with a specific diagnosis that is being evaluated, monitored, or treated as if it exists) are acceptable and can be coded in the inpatient setting, when documented at the
time of discharge.
Thank you,
Aliyah Cedeno RN
CDI Specialist
[place] [facility]
Please use your independent medical judgment in providing your response.
--- NOTE | 2023-05-05 12:44 | W.PN.HOSP.TC ---
Today's Communication/Plan
-
for surgical intervention
Assessment / Plan
Assessment / Plan
A/P:� Patient is an 83y M with PMH significant for s/p resection of descending colon/splenic flexure for extensive benign polyp 2000, hypertension and CHF who presents to ED complaining of N/V for the past 24 hours.
SBO
Intractable N/V secondary to the above
�- Maintain NG decompression and follow for BM, flatus, etc. Abd definitely softer with NG decompression, but still with high outputNG tube drainage
�- CT scan shows: 1). Mid small bowel obstruction with transition point in the right right midabdomen
2). Moderate interstitial airway disease at the basilar portion of the right middle lobe worrisome for pneumonia
3). Bilateral renal cysts measuring up to 4 cm
�- Surgery evaluation noted and appreciated
�-Most likely complete SBO
has had no flatus or stool output since admission
For planned surgical intervention this afternoon
Sepsis-POA
fever/tachycardic of GI origin from small bowel obstruction
Fever
�- IV abx for now with Zosyn.
Neg COVID.
�- Follow fever curve and follow for any new / worsening focal symptoms.
�- Follow-up culture data NGTD
Chronic HFpEF
�- Stable.� Not volume overloaded at present - s/p volume losses and 6 pounds weight loss in the past 24 hours.
�- Hold diuretics.
�- Gentle IVFs .
�- Follow I/Os, daily weights, etc.
Chronic Kidney Disease Stage 3a
ASCVD
�- Stable.� No chest pain or dyspnea.
�- will hold oral medications in pt with sbo
Paroxysmal Atrial Fibrillation
Heart Block s/p PPM
�- Stable.� Paced rhythm on tele.
�- Hold Eliquis acutely in the event that any intervention is needed.
�- Continue metoprolol.
�- Monitor on tele.
input from General Surgery, okay to start Heparin 5000 q8h
Benign Hypertension
�- Stable. Continue med regimen and adjust as needed.
DM-II
�- Stable.� Currently diet-controlled and off of all medications.
�- Follow glucose and cover with SSI if needed.
Obesity due to excess calories
�- Affects all aspects of care.
�- Encourage healthy diet and increased activity with goal of weight loss.
DVT Prophylaxis:� SCDs while Eliquis on hold.
will start Heparin
Code Status:� Full
Anticipated Discharge: > 48 hours
Subjective/Interval History
-
Date of Service: May 05, 2023
Decision has been masde to proceed with surgical intervention and pt voices his understanding
Objective Data
-
Labs:
Laboratory Results
05/05/23
06:48
WBC 8.7
Hgb 14.4
Hct 43.0
Plt Count 173
Sodium 143
Potassium 3.4 L
Chloride 103
Carbon Dioxide 25
BUN 32 H
Creatinine 1.3
Glucose 134 H
Calcium 9.7
Vital Signs:
Vital Signs
Temp Pulse Resp BP Pulse Ox
97.9 F 70 18 172/70 96
05/05/23 07:00 05/05/23 07:58 05/05/23 07:00 05/05/23 07:58 05/05/23 07:00
I&O
05/04/23 05/05/23 05/06/23
06:59 06:59 06:59
Intake Total 1160 / 1160 1310 / 1310
Output Total 2600 / 2600 2100 / 2100
Balance -1440 / -1440 -790 / -790
Review of Systems
-
History Source: Patient and Coordinated Provider
Constitutional: Denies Fever (afebrile >36 hrs)
EENT: Reports No Symptoms Reported
Respiratory: Reports No Symptoms
Cardiac: Reports No Symptoms
Abdomen/GI: Reports Abdominal Pain, Nausea, Constipated and Bloated
Genitourinary: Reports No Symptoms
Physical Exam
-
General: Well Developed, Well Nourished and No Apparent Distress
HEENT: Normocephalic, Atraumatic and Moist Mucous Membranes
Respiratory: Clear to Auscultation
Cardiac: Regular Rhythm and S1/S2
GI: Nontender and Normal Bowel Sounds (bowel sounds are much more apparent,but remain scattered); Negative Nondistended (abdomen remains distended, but is definitely softer)
Musculoskeletal: No Clubbing, No Cyanosis and No Edema
Skin: Warm and Dry
Neuro: Awake, Alert and Oriented
--- NOTE | 2023-05-05 15:11 | W.IMMPOSTOP ---
Addendum entered and electronically signed by Fabien Martinez MD 05/05/23 15:28:
Dic#[id number]
Original Note:
Surgical Immed Post Op Note
-
Primary Surgeon: Michelle
Assisting Surgeon: None
Pre-op Diagnosis: SBO
Post-op Diagnosis: SBO
Procedure Performed: Diagnostic laparoscopy, exploratory laparotomy, lysis of adhesions, small bowel resection with primary anastomosis
Anesthesia Type: General
Specimen / Cultures:
1. Small bowel
Estimated Blood Loss: 11 cc
Complications: None
Operative Findings:
1. Omental adhesions to midline, SB adhesions within RIGHT central abdomen and LUQ at site of prior anastomosis, lysis performed laparoscopically
2. Dense mesenteric adhesion causing transition point in RIGHT mid abdomen, conversion to open for complete lysis
3. Stenotic area at transition point with difficulty milking contents distally, SBR with ROBERT 80 blue load stapler and Shoaib technique
4. Bowel run from LT to TI, NGT placement confirmed
[2023-05-05 15:58] LABS: Glucose - Point of Care 123 mg/dl (70-99)
[2023-05-05] MEDS: NSS 1000 IV (16:28)
[2023-05-05] MEDS: LOPRESSOR IV (16:49)
--- NOTE | 2023-05-05 16:52 | PTCARENOTE ---
a-line removed without complications, pressure held for 5 minutes. clean,dry,dressing applied
[2023-05-05] MEDS: NSS IV (16:53)
[2023-05-05] MEDS: ZOSYN IV (16:53)
[2023-05-05] MEDS: HEPARIN SC (18:03)
--- NOTE | 2023-05-05 18:18 | PTCARENOTE ---
Patient arrived from OR with aquacell dressing to center of abdomen, 2 band aids on the Left quad CDI. Hawkins cath draining clear yellow urine. NG tube via L nare.
[2023-05-05] MEDS: DILAUDID 0.5 MG IV (18:22)
[2023-05-05] MEDS: OFIRMEV 100 IV (23:27)
[2023-05-05 23:52] LABS: Glucose - Point of Care 139 mg/dl (70-99)
[2023-05-06] VITALS (8 sets, daily range): BP systolic 121–167; BP diastolic 62–88; BMI 37.0
[2023-05-06] MEDS: ZOSYN 50 IV ×4 (03:30→20:05)
[2023-05-06] MEDS: LOPRESSOR 5 MG IV ×4 (03:30→20:05)
[2023-05-06] MEDS: NSS 1000 IV ×2 (03:31→15:56)
[2023-05-06] MEDS: OFIRMEV 100 IV ×3 (04:36→15:56)
[2023-05-06 06:18] LABS: Glucose - Point of Care 145 mg/dl (70-99)
[2023-05-06] MEDS: NOVOLOG FLEXPEN-LOW RESISTANCE SC ×2 (06:28→17:36)
[2023-05-06 07:33] LABS: Hematocrit 40.9 % (39.0-52.0); Hemoglobin 13.8 g/dL (13.0-18.0); Mean Corp Hgb Conc. 33.7 g/dL (33.0-37.0); Mean Corpuscular Hgb 34.8 pg (27.0-31.0); Mean Platelet Volume 10.1 fL (7.4-10.4); Platelet Count 166 10^3/uL (130-400); Red Blood Cell Count 3.97 10^6/uL (4.70-6.10); Red Cell Dist. Width 12.4 % (11.5-14.5); White Blood Cell Count 11.6 10^3/uL (4.8-10.8)
[2023-05-06 07:48] LABS: Blood Urea Nitrogen 36 mg/dl (9-20); Calcium 8.1 mg/dl (8.4-10.2); Carbon Dioxide 24 mmol/L (22-30); Chloride 105 mmol/L (98-107); Estimated Creatinine Clearance 48 ml/min; Glucose 153 mg/dl (70-99); Potassium 3.6 mmol/L (3.5-5.1); Sodium 139 mmol/L (135-145); eGFR 54.85
[2023-05-06] MEDS: HEPARIN 5000 UNITS SC ×2 (09:30→16:01)
[2023-05-06] MEDS: FLUSH (NSS) 1 FLUSH IV (09:31)
[2023-05-06 11:37] LABS: Glucose - Point of Care 150 mg/dl (70-99)
--- NOTE | 2023-05-06 11:44 | W.PN.GS2 ---
Addendum entered and electronically signed by Romero Vo MD 05/06/23 11:52:
Correction: SQH for DVT ppx
Original Note:
Today's Communication / Plan
-
Clamp trial
Start ppx lovenox
Assessment / Plan
-
Patient is an 83 yo M POD1 s/p lap convereted to open DENITA with SBR for SBO
Doing well post-op, minimal NGT output, passing flatus and stool, pain well controlled
Mild new leukocytosis, likely reactive
-- Clamp trial
-- NPO, IVF,
-- Continue ABX
-- Hold Eliquis
-- DC henson
-- Ambulate
-- SCDs, start ppx lovenox
-- PRN pain meds
Subjective Data
-
Date of Service: May 06, 2023
AFVSS, ambulating, OOBTC, pain well controlled, denies n/v with NGT to suction, passing flatus and had a BM this am
Objective Data
-
Intake and Output
05/05/23 05/06/23 05/07/23
06:59 06:59 06:59
Intake Total 1310 / 1310 290 / 290
Output Total 2099 850 / 850
Balance -790 / -790 -560 / -560
Intake:
Oral fluids 240 / 240 0 / 0
IV fluids (Total) 880 / 880 200 / 200
nss 200 / 200
IV piggybacks 100 / 100
Amount instilled into GI Tube ( 90 / 90 90 / 90
Total)
[place] Sump 90 / 90 90 / 90
Output:
Gastrointestinal tube output ( 2099 200 / 200
Total)
[place] Sump 2099 200 / 200
Urine, Henson 650 / 650
Other:
Number of approximated MODERATE 2 1
amounts of urine
Vital Signs
Temp Pulse Resp BP Pulse Ox
98.1 F 61 20 157/72 94
05/06/23 07:20 05/06/23 07:20 05/06/23 07:20 05/06/23 09:31 05/06/23 07:20
Lab Results
05/06/23 06:50
05/06/23 06:50
Calcium 8.1 mg/dl (8.4-10.2) L D 05/06/23 06:50
Total Bilirubin 0.9 mg/dl (0.2-1.3) 05/02/23 22:01
AST 29 U/L (17-59) 05/02/23 22:01
ALT 21 U/L (0-50) 05/02/23 22:01
Alkaline Phosphatase 81 U/L (38-126) 05/02/23 22:01
Total Protein 8.1 g/dl (6.3-8.2) 05/02/23 22:01
Albumin 4.9 g/dl (3.5-5.0) 05/02/23 22:01
Physical Exam
-
Gen: NAD
Abd: soft, apptop ttp, bandaids at lap sites cdi, midline aquacel with slight strikethrough
--- NOTE | 2023-05-06 11:45 | W.PN.HOSP.TC ---
Today's Communication/Plan
-
start full dose anticoagulation when okay with General Surgery
Assessment / Plan
Assessment / Plan
A/P:� Patient is an 83y M with PMH significant for s/p resection of descending colon/splenic flexure for extensive benign polyp 2000, hypertension and CHF who presents to ED complaining of N/V for the past 24 hours.
SBO
Pt underwent: 'Diagnostic laparoscopy, exploratory laparotomy, lysis
of adhesions, small-bowel resection with primary anastomosis.' as per Dr. Martinez 05/04. Today is POD #1
Operative findings: '1. Omental adhesions to midline, small bowel adhesions within the
right central abdomen and left upper quadrant at site of prior
anastomosis, lysis performed laparoscopically.
2. Dense mesenteric adhesion causing transition point in right mid
abdomen, conversion to open for complete lysis.
3. Stenotic area at transition point with difficulty milking
contents distally, small bowel resection with ROBERT 80 blue load
stapler and Shoaib technique.
4. Bowel run from ligament of Treitz to terminal ileum, NG
placement confirmed.'
Sepsis-POA
fever/tachycardic of GI origin from small bowel obstruction
Remains on Zosyn post op.
Neg COVID.
Chronic HFpEF
�- Stable.� Not volume overloaded at present -
�- Hold diuretics.
�- Gentle IVFs .
�- Follow I/Os, daily weights, etc.
Chronic Kidney Disease Stage 3a
ASCVD
�- Stable.� No chest pain or dyspnea.
�- will hold oral medications in pt with sbo
Paroxysmal Atrial Fibrillation
Heart Block s/p PPM
�- Stable.� Paced rhythm on tele.
�- Hold Eliquis acutely in the event that any intervention is needed.
�- Continue metoprolol.
�- Monitor on tele.
input from General Surgery, okay to start Heparin 5000 q8h
Benign Hypertension
�- Stable. Continue med regimen and adjust as needed.
DM-II
�- Stable.� Currently diet-controlled and off of all medications.
�- Follow glucose and cover with SSI if needed.
Obesity due to excess calories
�- Affects all aspects of care.
�- Encourage healthy diet and increased activity with goal of weight loss.
DVT Prophylaxis:� continue Heparin 5k q8h
would resume full dose anticoagulation when okay with general surgery (Possible Lovenox 100 mg q12h, until able to take Eliquis by mouth)
Code Status:� Full
Anticipated Discharge: > 48 hours
Subjective/Interval History
-
Date of Service: May 06, 2023
Awake, alert
Objective Data
-
Labs:
Laboratory Results
05/06/23
06:50
WBC 11.6 H
Hgb 13.8
Hct 40.9
Plt Count 166
Sodium 139
Potassium 3.6
Chloride 105
Carbon Dioxide 24
BUN 36 H
Creatinine 1.3
Glucose 153 H
Calcium 8.1 L D
Vital Signs:
Vital Signs
Temp Pulse Resp BP Pulse Ox
98.1 F 61 20 157/72 94
05/06/23 07:20 05/06/23 07:20 05/06/23 07:20 05/06/23 09:31 05/06/23 07:20
I&O
05/05/23 05/06/23 05/07/23
06:59 06:59 06:59
Intake Total 1310 / 1310 290 / 290
Output Total 2099 / 2099 850 / 850
Balance -790 / -790 -560 / -560
Review of Systems
-
History Source: Patient and Coordinated Provider
Constitutional: Denies Fever (afebrile >36 hrs)
EENT: Reports No Symptoms Reported
Respiratory: Reports No Symptoms
Cardiac: Reports No Symptoms
Abdomen/GI: Reports Abdominal Pain (post op), Constipated (no stool production or flatus) and Bloated
Genitourinary: Reports No Symptoms
Physical Exam
-
General: Well Developed, Well Nourished and No Apparent Distress
HEENT: Normocephalic, Atraumatic, Moist Mucous Membranes and Other (NG tube in place)
Respiratory: Clear to Auscultation; Negative Wheezes, Rales or Rhonchi
Cardiac: Regular Rhythm and S1/S2
GI: Tender and Other (Pt is 1 day post op); Negative Normal Bowel Sounds
Musculoskeletal: No Clubbing, No Cyanosis and No Edema
Skin: Warm and Dry
Neuro: Awake, Alert and Oriented
[2023-05-06] MEDS: LOPRESSOR 2.5 MG IV (13:24)
[2023-05-06] MEDS: NOVOLOG FLEXPEN-LOW RESISTANCE 1 UNITS SC (14:00)
--- NOTE | 2023-05-06 16:48 | CM ---
Continues with NG tube ,May clamp today.
Continues IV antibiotics.
Initially declined VN will ask again.
PLAN Home with possible VN if pt requests
[2023-05-06 17:22] LABS: Glucose - Point of Care 112 mg/dl (70-99)
--- NOTE | 2023-05-06 17:24 | PTCARENOTE ---
NG tube has been clamped since 1200- residual checked at 1700-0 ml. patient denied nausea. ng tube removed without difficulty. given luis milad- instructed to drink slowly. plan of care on going
[2023-05-06 21:09] LABS: Glucose - Point of Care 127 mg/dl (70-99)
[2023-05-06] MEDS: PROTONIX IV 40 MG IV (22:19)
[2023-05-06] MEDS: NSS (PRESERVATIVE FREE) 10 ML IV (22:19)
--- NOTE | 2023-05-06 22:30 | PTCARENOTE ---
Patient incontinent of a large, dark maroon liquid bowel movement. Dark blood also noted when wiping. No complaints of pain, VSS. 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 CBC, CMP,
and mag in for morning. Plan of care ongoing.
[2023-05-07] MEDS: ZOSYN 50 IV ×4 (02:09→20:58)
[2023-05-07] MEDS: NSS 1000 IV (02:39)
[2023-05-07 03:28] VITALS: BP 122/75
[2023-05-07] MEDS: LOPRESSOR 5 MG IV ×4 (03:41→20:57)
[2023-05-07 06:12] LABS: % Basophils 0.4 % (0-2); % Eosinophils 1.5 % (0-6); % Immature Granulocytes 1.5 % (0-0.5); % Lymphocytes 9.6 % (20.5-51.1); % Monocytes 7.9 % (1.7-9.3); % Neutrophils 79.1 % (42.2-75.2); Absolute Eosinophils 0.2 10^3/uL (0-0.7); Absolute Immature Granulocytes 0.2 10^3/uL (0-0.05); Absolute Monocytes 0.8 10^3/uL (0.1-0.6); Absolute Neutrophils 8.4 10^3/uL (1.4-6.5); Hematocrit 33.7 % (39.0-52.0); Mean Corp Hgb Conc. 32.6 g/dL (33.0-37.0); Mean Platelet Volume 9.9 fL (7.4-10.4); Nucleated Red Blood Cells % 0 % (-); Platelet Count 162 10^3/uL (130-400); Red Blood Cell Count 3.24 10^6/uL (4.70-6.10); Red Cell Dist. Width 12.8 % (11.5-14.5); White Blood Cell Count 10.6 10^3/uL (4.8-10.8)
[2023-05-07 06:32] LABS: ALT (SGPT) 14 U/L (0-50); AST (SGOT) 20 U/L (17-59); Alkaline Phosphatase 49 U/L (38-126); Blood Urea Nitrogen 31 mg/dl (9-20); Carbon Dioxide 24 mmol/L (22-30); Chloride 110 mmol/L (98-107); Estimated Creatinine Clearance 48 ml/min; Glucose 98 mg/dl (70-99); Magnesium 2.2 mg/dl (1.6-2.3); Sodium 139 mmol/L (135-145); Total Bilirubin 0.4 mg/dl (0.2-1.3); Total Protein 5.5 g/dl (6.3-8.2); eGFR 54.85
[2023-05-07 07:18] LABS: Glucose - Point of Care 97 mg/dl (70-99)
[2023-05-07 07:40] VITALS: BP 143/76
[2023-05-07] MEDS: PROTONIX IV 40 MG IV (08:03)
[2023-05-07] MEDS: NSS (PRESERVATIVE FREE) 10 ML IV (08:41)
[2023-05-07] MEDS: KCL 270 MEQ IV ×2 (09:37→16:36)
[2023-05-07 09:44] VITALS: BMI 37.4
[2023-05-07 11:39] VITALS: BP 148/76
[2023-05-07 12:24] LABS: Glucose - Point of Care 106 mg/dl (70-99)
--- NOTE | 2023-05-07 12:36 | W.PN.GS2 ---
Today's Communication / Plan
-
`
Assessment / Plan
-
Patient is an 83 yo M POD2 s/p lap -> open DENITA with SBR for SBO
AFVSS
+ GI function
bloody BM reported overnight but pt not aware
hgb 11 from 13 - likely reflective of acute blood loss anemia from OR/possible oozing at anastomosis as well as dilutional from IVF
hypokalemia
Plan: clears to full liquid diet today
cap IVF
repeat HGB tomorrow AM and monitor for bloody BMs
hold therapeutic AC until H&H stable and stools confirmed to be clearing
okay to continue VTEp with heparin that is currently on
Subjective Data
-
Date of Service: May 07, 2023
pt seen and examined
megan clears and feels well
minimal post op incisional pain
+flatus and less frequent loose stools, pt unsure about blood in BMs as reported by nursing overnight
Objective Data
-
Intake and Output
05/06/23 05/07/23 05/08/23
06:59 06:59 06:59
Intake Total 290 / 290 1950 / 1950
Output Total 850 / 850 300 / 300
Balance -560 / -560 1650 / 1650
Intake:
Oral fluids 0 / 0 720 / 720
IV fluids (Total) 200 / 200 900 / 900
nss 200 / 200
IV piggybacks 300 / 300
Amount instilled into GI Tube ( 90 / 90 30 / 30
Total)
Gering Sump 90 / 90 30 / 30
Output:
Gastrointestinal tube output ( 200 / 200
Total)
Gering Sump 200 / 200
Urine, Hawkins 650 / 650 300 / 300
Other:
Number of approximated SMALL 4
amounts of urine
Number of approximated MODERATE 1 1
amounts of urine
Vital Signs
Temp Pulse Resp BP Pulse Ox
98.2 F 58 20 143/76 99
05/07/23 07:40 05/07/23 07:40 05/07/23 07:40 05/07/23 07:40 05/07/23 10:00
Lab Results
05/07/23 05:34
05/07/23 05:34
Calcium 8.0 mg/dl (8.4-10.2) L 05/07/23 05:34
Magnesium 2.2 mg/dl (1.6-2.3) 05/07/23 05:34
Total Bilirubin 0.4 mg/dl (0.2-1.3) 05/07/23 05:34
AST 20 U/L (17-59) 05/07/23 05:34
ALT 14 U/L (0-50) 05/07/23 05:34
Alkaline Phosphatase 49 U/L (38-126) 05/07/23 05:34
Total Protein 5.5 g/dl (6.3-8.2) L 05/07/23 05:34
Albumin 3.0 g/dl (3.5-5.0) L 05/07/23 05:34
Physical Exam
-
NAD AAOx3
ABD: softly distended, nontender
Aquacel dressing in place and bandaids at lap sites
[2023-05-07] MEDS: NSS IV (12:48)
--- NOTE | 2023-05-07 14:07 | W.PN.HOSP.TC ---
Today's Communication/Plan
-
FLD
monitor HgB, hold anticoag
abx
Assessment / Plan
Assessment / Plan
A/P:� Patient is an 83y M with PMH significant for s/p resection of descending colon/splenic flexure for extensive benign polyp 2000, hypertension and CHF who presents to ED complaining of N/V for the past 24 hours.
SBO
Pt underwent: 'Diagnostic laparoscopy, exploratory laparotomy, lysis
of adhesions, small-bowel resection with primary anastomosis.' as per Dr. Martinez 05/04. Today is POD #2
Operative findings: '1. Omental adhesions to midline, small bowel adhesions within the
right central abdomen and left upper quadrant at site of prior
anastomosis, lysis performed laparoscopically.
2. Dense mesenteric adhesion causing transition point in right mid
abdomen, conversion to open for complete lysis.
3. Stenotic area at transition point with difficulty milking
contents distally, small bowel resection with ROBERT 80 blue load
stapler and Shoaib technique.
-Advance to FLD today
#Acute Blood loss anemia
-bloody BM reported overnight
-cont to monitor HgB off full dose anticoag
Sepsis-POA
fever/tachycardic of GI origin from small bowel obstruction, possible
-Remains on Zosyn post op - cont for now
Neg COVID.
Chronic HFpEF
�- Stable.� Not volume overloaded at present -
�- Hold diuretics - if hemodynamically stable and hgb remains stable, can resume within 24-48 hours
-stop fluids
�- Follow I/Os, daily weights, etc.
Chronic Kidney Disease Stage 3a
ASCVD
�- Stable.� No chest pain or dyspnea.
�- will hold oral medications in pt with sbo
Paroxysmal Atrial Fibrillation
Heart Block s/p PPM
�- Stable.� Paced rhythm on tele.
�- Hold Eliquis - monitor HgB stability
�- Continue metoprolol.
�- Monitor on tele.
Benign Hypertension
�- Stable. Continue med regimen and adjust as needed.
DM-II
�- Stable.� Currently diet-controlled and off of all medications.
�- Follow glucose and cover with SSI if needed.
Obesity due to excess calories
�- Affects all aspects of care.
�- Encourage healthy diet and increased activity with goal of weight loss.
DVT Prophylaxis:� SCD - hold chemoppx due to bleed
Code Status:� Full
Anticipated Discharge: > 48 hours
Subjective/Interval History
-
Date of Service: May 07, 2023
tolerating CLD well, had loose BM yest
Objective Data
-
Labs:
Laboratory Results
05/07/23
05:34
WBC 10.6
Hgb 11.0 L D
Hct 33.7 L
Plt Count 162
Sodium 139
Potassium 3.0 L
Chloride 110 H
Carbon Dioxide 24
BUN 31 H
Creatinine 1.3
Glucose 98
Calcium 8.0 L
Total Bilirubin 0.4
AST 20
ALT 14
Alkaline Phosphatase 49
Vital Signs:
Vital Signs
Temp Pulse Resp BP Pulse Ox
99.4 F 68 18 148/76 100
05/07/23 11:39 05/07/23 11:39 05/07/23 11:39 05/07/23 11:39 05/07/23 11:39
I&O
05/06/23 05/07/23 05/08/23
06:59 06:59 06:59
Intake Total 290 / 290 1950 / 1950
Output Total 850 / 850 300 / 300
Balance -560 / -560 1650 / 1650
Review of Systems
-
History Source: Patient
All other systems: Not reviewed unless documented
Data Reviewed
-
Diagnostic Radiology: Report Reviewed by me
Labs: Labs Reviewed by me
[2023-05-07 15:13] VITALS: BP 129/57
[2023-05-07 17:24] LABS: Glucose - Point of Care 129 mg/dl (70-99)
[2023-05-07 19:40] VITALS: BP 143/58
[2023-05-07 21:17] LABS: Glucose - Point of Care 111 mg/dl (70-99)
[2023-05-07 23:32] VITALS: BP 132/58
[2023-05-08] MEDS: LOPRESSOR 5 MG IV ×2 (02:02→08:05)
[2023-05-08] MEDS: ZOSYN 50 IV ×2 (02:02→08:06)
[2023-05-08 03:35] VITALS: BP 114/63
[2023-05-08 05:50] LABS: Hematocrit 29.3 % (39.0-52.0); Hemoglobin 10.3 g/dL (13.0-18.0); Mean Corp Hgb Conc. 35.2 g/dL (33.0-37.0); Mean Corpuscular Hgb 35.3 pg (27.0-31.0); Mean Corpuscular Volume 100.3 fL (80.0-94.0); Mean Platelet Volume 10.7 fL (7.4-10.4); Platelet Count 180 10^3/uL (130-400); Red Blood Cell Count 2.92 10^6/uL (4.70-6.10); Red Cell Dist. Width 12.7 % (11.5-14.5); White Blood Cell Count 9.8 10^3/uL (4.8-10.8)
[2023-05-08 06:00] VITALS: BMI 37.6
[2023-05-08 06:15] LABS: ALT (SGPT) 13 U/L (0-50); AST (SGOT) 23 U/L (17-59); Albumin 3.2 g/dl (3.5-5.0); Alkaline Phosphatase 50 U/L (38-126); Blood Urea Nitrogen 20 mg/dl (9-20); Calcium 8.1 mg/dl (8.4-10.2); Carbon Dioxide 21 mmol/L (22-30); Chloride 107 mmol/L (98-107); Estimated Creatinine Clearance 52 ml/min; Glucose 101 mg/dl (70-99); Potassium 3.4 mmol/L (3.5-5.1); Sodium 135 mmol/L (135-145); Total Bilirubin 0.6 mg/dl (0.2-1.3); Total Protein 5.8 g/dl (6.3-8.2); eGFR > 60.00
[2023-05-08 07:34] LABS: Glucose - Point of Care 105 mg/dl (70-99)
[2023-05-08 07:35] VITALS: BP 127/64
[2023-05-08] MEDS: NSS (PRESERVATIVE FREE) 10 ML IV (08:05)
[2023-05-08] MEDS: PROTONIX IV 40 MG IV (08:05)
[2023-05-08] MEDS: FLUSH (NSS) 1 FLUSH IV (08:05)
--- NOTE | 2023-05-08 08:36 | W.PN.GS2 ---
Addendum entered and electronically signed by Jose M Webb MD 05/08/23 15:06:
Patient seen and examined this afternoon with nurse practitioner. Agree with documented progress note as outlined below.
Patient feeling well, tolerating dietary advancement. Continues to pass flatus and some BM�nonbloody
AFVSS
NAD AAOx3
ABD: Soft, nondistended, no tenderness, Aquacel dressing in place.
A/P: Doing well with dietary advancement. No signs of bleeding. Continue low residue diet as tolerated. If H&H stable tomorrow can resume Eliquis at 2.5 mg twice daily.
Original Note:
Today's Communication / Plan
-
Advance diet
Hold Eliquis
Assessment / Plan
-
Patient is an 83 yo M POD #3 s/p lap -> open DENITA with SBR for SBO
AFVSS
+ GI function
h/h with slight drift this am, no leukocytosis
hypokalemia
Plan: advance to LRD
add PO analgesics
repeat HGB tomorrow AM and monitor for bloody BMs
continue to hold therapeutic AC until H&H stable and stools confirmed to be clearing, other home PO meds Ok
okay to continue VTEp with heparin that is currently on
Subjective Data
-
Date of Service: May 08, 2023
Patient seen and examined at bedside. Notes he is passing a lot of gas. Passed some stool overnight which he reports was nonbloody. Tolerating fulls without n/v. Some incisional pain with movement but otherwise comfortable.
Objective Data
-
Intake and Output
05/07/23 05/08/23 05/09/23
06:59 06:59 06:59
Intake Total 1950 / 1950 1920 / 1920
Output Total 300 / 300 450 / 450
Balance 1650 / 1650 1470 / 1470
Intake:
Oral fluids 720 / 720 1620 / 1620
IV fluids (Total) 900 / 900
IV piggybacks 300 / 300 300 / 300
Amount instilled into GI Tube (
Total)
Leake Sump
Output:
Urine, Hawkins 300 / 300
Urine, Voided 450 / 450
Other:
Number of approximated SMALL 4 2
amounts of urine
Number of approximated MODERATE 1 3
amounts of urine
Number of unmeasured liquid
stools
Rectum 8
Vital Signs
Temp Pulse Resp BP Pulse Ox
98.3 F 72 18 127/64 99
05/08/23 07:35 05/08/23 08:05 05/08/23 07:35 05/08/23 08:05 05/08/23 08:03
Lab Results
05/08/23 04:52
05/08/23 04:52
Calcium 8.1 mg/dl (8.4-10.2) L 05/08/23 04:52
Magnesium 2.2 mg/dl (1.6-2.3) 05/07/23 05:34
Total Bilirubin 0.6 mg/dl (0.2-1.3) 05/08/23 04:52
AST 23 U/L (17-59) 05/08/23 04:52
ALT 13 U/L (0-50) 05/08/23 04:52
Alkaline Phosphatase 50 U/L (38-126) 05/08/23 04:52
Total Protein 5.8 g/dl (6.3-8.2) L 05/08/23 04:52
Albumin 3.2 g/dl (3.5-5.0) L 05/08/23 04:52
Physical Exam
-
NAD AAOx3
ABD: soft, minimal distention, nontender, ecchymosis at injection sites to lower abd
Aquacel dressing in place and bandaids at lap sites
[2023-05-08] MEDS: KCL ELIXIR 40 MEQ PO (10:02)
[2023-05-08 12:01] LABS: Glucose - Point of Care 129 mg/dl (70-99)
--- NOTE | 2023-05-08 14:18 | W.PN.HOSP.TC ---
Today's Communication/Plan
-
monitor hgb with trial dct chemoppx
monitor bm
adv to LRD diet
Assessment / Plan
Assessment / Plan
General: Well Developed, Well Nourished and No Apparent Distress
HEENT: Normocephalic, Atraumatic, Moist Mucous Membranes
Respiratory: Clear to Auscultation; Negative Wheezes, Rales or Rhonchi
Cardiac: Regular Rhythm and S1/S2
GI: Tender and Other (Pt is 3 day post op); Negative Normal Bowel Sounds
Musculoskeletal: No Clubbing, No Cyanosis and No Edema
Skin: Warm and Dry
Neuro: Awake, Alert and Oriented
A/P:� Patient is an 83y M with PMH significant for s/p resection of descending colon/splenic flexure for extensive benign polyp 2000, hypertension and CHF who presents to ED complaining of N/V for the past 24 hours.
SBO
Pt underwent: 'Diagnostic laparoscopy, exploratory laparotomy, lysis
of adhesions, small-bowel resection with primary anastomosis.' as per Dr. Martinez 05/04. Today is POD #2
Operative findings: '1. Omental adhesions to midline, small bowel adhesions within the
right central abdomen and left upper quadrant at site of prior
anastomosis, lysis performed laparoscopically.
2. Dense mesenteric adhesion causing transition point in right mid
abdomen, conversion to open for complete lysis.
3. Stenotic area at transition point with difficulty milking
contents distally, small bowel resection with ROBERT 80 blue load
stapler and Shoaib technique.
-Advance to LRD today
-monitor for BM
#Acute Blood loss anemia
-bloody BM reported 2 nights ago
-cont to monitor HgB off full dose anticoag - hgb still dropping
SIRS - most likely non infectious source with SBO - cont to monitor off abx and treat with abx if needed for inc wbc or fever curve
s/p zosyn 3 day course
Chronic HFpEF
�- Stable.� Not volume overloaded at present -
�- Hold diuretics - if hemodynamically stable and hgb remains stable, can resume within 24-48 hours
-stop fluids
�- Follow I/Os, daily weights, etc.
Chronic Kidney Disease Stage 3a
Hypokalemia
-monitor and replete
ASCVD
�- Stable.� No chest pain or dyspnea.
�- will hold oral medications in pt with sbo
Paroxysmal Atrial Fibrillation
Heart Block s/p PPM
�- Stable.� Paced rhythm on tele.
�- Hold Eliquis - monitor HgB stability
�- Continue metoprolol.
�- Monitor on tele.
Benign Hypertension
�- Stable. Continue med regimen and adjust as needed.
DM-II
�- Stable.� Currently diet-controlled and off of all medications.
�- Follow glucose and cover with SSI if needed.
Obesity due to excess calories
�- Affects all aspects of care.
�- Encourage healthy diet and increased activity with goal of weight loss.
DVT Prophylaxis:� Trial HSQ
Code Status:� Full
Anticipated Discharge: 24 - 48 hours
Subjective/Interval History
-
Date of Service: May 08, 2023
await bm, monitoring hgb
Objective Data
-
Labs:
Laboratory Results
05/08/23
04:52
WBC 9.8
Hgb 10.3 L
Hct 29.3 L
Plt Count 180
Sodium 135
Potassium 3.4 L
Chloride 107
Carbon Dioxide 21 L
BUN 20
Creatinine 1.2
Glucose 101 H
Calcium 8.1 L
Total Bilirubin 0.6
AST 23
ALT 13
Alkaline Phosphatase 50
Vital Signs:
Vital Signs
Temp Pulse Resp BP Pulse Ox
98.3 F 72 18 127/64 99
05/08/23 07:35 05/08/23 08:05 05/08/23 07:35 05/08/23 08:05 05/08/23 08:03
I&O
05/07/23 05/08/23 05/09/23
06:59 06:59 06:59
Intake Total 1950 / 1950 1920 / 1920
Output Total 300 / 300 450 / 450
Balance 1650 / 1650 1470 / 1470
Review of Systems
-
History Source: Patient
All other systems: Not reviewed unless documented
Data Reviewed
-
Diagnostic Radiology: Report Reviewed by me
Labs: Labs Reviewed by me
[2023-05-08] MEDS: HEPARIN 5000 UNITS SC ×2 (15:18→23:15)
[2023-05-08 15:52] VITALS: BP 106/39
--- NOTE | 2023-05-08 15:53 | PTCARENOTE ---
Pt AAO x3, JACOBS; OOB in chair for shift; ambulates to BR; megan well, no c/o weakness/dizziness. VSS. On room air- pulse ox 97%. Abd obese, soft, pt reports (+) flatus/(-) BM today. Megan Low reside diet; appetite fair. Voiding in BR without
difficulty. Mid abd dsg/Aquacell intact; old drainage noted. Resting comfortably at present. Will continue to monitor.
[2023-05-08 16:42] LABS: Glucose - Point of Care 106 mg/dl (70-99)
[2023-05-08 19:26] VITALS: BP 147/74
[2023-05-08] MEDS: TOPROL XL 25 MG PO (19:51)
[2023-05-08 21:10] LABS: Glucose - Point of Care 108 mg/dl (70-99)
[2023-05-08 23:43] VITALS: BP 144/68
[2023-05-09 06:00] VITALS: BMI 37.1
[2023-05-09 07:16] LABS: Glucose - Point of Care 125 mg/dl (70-99)
[2023-05-09 07:48] VITALS: BP 128/66
[2023-05-09] MEDS: NSS (PRESERVATIVE FREE) IV (08:30)
[2023-05-09] MEDS: PROTONIX 40 MG PO (08:39)
[2023-05-09] MEDS: TOPROL XL 25 MG PO ×2 (08:39→19:58)
[2023-05-09] MEDS: HEPARIN 5000 UNITS SC (08:40)
[2023-05-09 08:56] LABS: Hematocrit 33.4 % (39.0-52.0); Hemoglobin 11.2 g/dL (13.0-18.0); Mean Corp Hgb Conc. 33.5 g/dL (33.0-37.0); Mean Corpuscular Hgb 34.7 pg (27.0-31.0); Mean Corpuscular Volume 103.4 fL (80.0-94.0); Mean Platelet Volume 10.3 fL (7.4-10.4); Platelet Count 203 10^3/uL (130-400); Red Blood Cell Count 3.23 10^6/uL (4.70-6.10); Red Cell Dist. Width 12.7 % (11.5-14.5); White Blood Cell Count 8.3 10^3/uL (4.8-10.8)
[2023-05-09 09:36] LABS: ALT (SGPT) 16 U/L (0-50); AST (SGOT) 26 U/L (17-59); Albumin 3.6 g/dl (3.5-5.0); Alkaline Phosphatase 62 U/L (38-126); Blood Urea Nitrogen 14 mg/dl (9-20); Calcium 8.7 mg/dl (8.4-10.2); Carbon Dioxide 21 mmol/L (22-30); Chloride 108 mmol/L (98-107); Estimated Creatinine Clearance 52 ml/min; Glucose 121 mg/dl (70-99); Potassium 3.5 mmol/L (3.5-5.1); Sodium 138 mmol/L (135-145); Total Bilirubin 0.5 mg/dl (0.2-1.3); Total Protein 6.4 g/dl (6.3-8.2); eGFR > 60.00
--- NOTE | 2023-05-09 10:22 | W.PN.GS2 ---
Today's Communication / Plan
-
Ok to resume AC
Dispo planning
Assessment / Plan
-
Patient is an 83 yo M POD #4 s/p lap -> open DENITA with SBR for SBO
AFVSS
+ GI function
Labs stable
Plan: advance to LRD
analgesics prn
Ok to resume eliquis
Final dispo as per primary team. clear for d/c later today from surgical standpoint
Subjective Data
-
Date of Service: May 09, 2023
Patient seen and examined at bedside with Dr. Rosales. Denies n/v. Tolerating LRD. Passed flatus and brown stool this am. Voiding without difficulty. Minimal abdominal discomfort.
Objective Data
-
Intake and Output
05/08/23 05/09/23 05/10/23
06:59 06:59 06:59
Intake Total 1920 / 1920 850 / 850
Output Total 450 / 450
Balance 1470 / 1470 850 / 850
Intake:
Oral fluids 1620 / 1620 800 / 800
IV piggybacks 300 / 300 50 / 50
Output:
Urine, Voided 450 / 450
Other:
Number of approximated SMALL 2
amounts of urine
Number of approximated MODERATE 3 3
amounts of urine
Number of unmeasured liquid
stools
Rectum 8
Vital Signs
Temp Pulse Resp BP Pulse Ox
98.1 F 83 16 128/66 99
05/09/23 07:48 05/09/23 08:39 05/09/23 07:48 05/09/23 08:39 05/09/23 07:48
Lab Results
05/09/23 06:20
05/09/23 06:20
Calcium 8.7 mg/dl (8.4-10.2) 05/09/23 06:20
Magnesium 2.2 mg/dl (1.6-2.3) 05/07/23 05:34
Total Bilirubin 0.5 mg/dl (0.2-1.3) 05/09/23 06:20
AST 26 U/L (17-59) 05/09/23 06:20
ALT 16 U/L (0-50) 05/09/23 06:20
Alkaline Phosphatase 62 U/L (38-126) 05/09/23 06:20
Total Protein 6.4 g/dl (6.3-8.2) 05/09/23 06:20
Albumin 3.6 g/dl (3.5-5.0) 05/09/23 06:20
Physical Exam
-
NAD AAOx3
ABD: soft, ND, nontender, ecchymosis at injection sites to lower abd
Aquacel dressing and bandaids from lap site removed. Dickinson intact, incisions well approximated without erythema
[2023-05-09 11:32] LABS: Glucose - Point of Care 134 mg/dl (70-99)
--- NOTE | 2023-05-09 13:02 | W.PN.HOSP.TC ---
Today's Communication/Plan
-
trial eliquis and monitor hgb, bloody bm
resume lasix
Assessment / Plan
Assessment / Plan
General: Well Developed, Well Nourished and No Apparent Distress
HEENT: Normocephalic, Atraumatic, Moist Mucous Membranes
Respiratory: Clear to Auscultation; Negative Wheezes, Rales or Rhonchi
Cardiac: Regular Rhythm and S1/S2
GI: Tender and Other (Pt is 3 day post op); Negative Normal Bowel Sounds
Musculoskeletal: No Clubbing, No Cyanosis and No Edema
Skin: Warm and Dry
Neuro: Awake, Alert and Oriented
A/P:� Patient is an 83y M with PMH significant for s/p resection of descending colon/splenic flexure for extensive benign polyp 2000, hypertension and CHF who presents to ED complaining of N/V for the past 24 hours.
SBO
Pt underwent: 'Diagnostic laparoscopy, exploratory laparotomy, lysis
of adhesions, small-bowel resection with primary anastomosis.' as per Dr. Martinez 05/04. Today is POD #2
Operative findings: '1. Omental adhesions to midline, small bowel adhesions within the
right central abdomen and left upper quadrant at site of prior
anastomosis, lysis performed laparoscopically.
2. Dense mesenteric adhesion causing transition point in right mid
abdomen, conversion to open for complete lysis.
3. Stenotic area at transition point with difficulty milking
contents distally, small bowel resection with ROBERT 80 blue load
stapler and Shoaib technique.
-Advance to LRD - tolerating
-monitor for BM
#Acute Blood loss anemia
-bloody BM reported 3 nights ago
-Hgb remains stable, trial eliquis now and monitor
SIRS - most likely non infectious source with SBO - cont to monitor off abx and treat with abx if needed for inc wbc or fever curve
s/p zosyn 3 day course
Chronic HFpEF
�- Stable.� Not volume overloaded at present -
�- resume diuretics
-stop fluids
�- Follow I/Os, daily weights, etc.
Chronic Kidney Disease Stage 3a
Hypokalemia
-monitor and replete
ASCVD
�- Stable.� No chest pain or dyspnea.
�- will hold oral medications in pt with sbo
Paroxysmal Atrial Fibrillation
Heart Block s/p PPM
�- Stable.� Paced rhythm on tele.
�- resume eliquis and monitor hgb, bloody bm
�- Continue metoprolol.
�- Monitor on tele.
Benign Hypertension
�- Stable. Continue med regimen and adjust as needed.
DM-II
�- Stable.� Currently diet-controlled and off of all medications.
�- Follow glucose and cover with SSI if needed.
Obesity due to excess calories
�- Affects all aspects of care.
�- Encourage healthy diet and increased activity with goal of weight loss.
DVT Prophylaxis:� Eliquis
Code Status:� Full
Anticipated Discharge: Within 24 hours
Subjective/Interval History
-
Date of Service: May 09, 2023
no bloody bms, hgb remains stable
Objective Data
-
Labs:
Laboratory Results
05/09/23
06:20
WBC 8.3
Hgb 11.2 L
Hct 33.4 L
Plt Count 203
Sodium 138
Potassium 3.5
Chloride 108 H
Carbon Dioxide 21 L
BUN 14
Creatinine 1.2
Glucose 121 H
Calcium 8.7
Total Bilirubin 0.5
AST 26
ALT 16
Alkaline Phosphatase 62
Vital Signs:
Vital Signs
Temp Pulse Resp BP Pulse Ox
98.1 F 83 16 128/66 99
05/09/23 07:48 05/09/23 08:39 05/09/23 07:48 05/09/23 08:39 05/09/23 08:30
I&O
05/08/23 05/09/23 05/10/23
06:59 06:59 06:59
Intake Total 1920 / 1920 850 / 850
Output Total 450 / 450
Balance 1470 / 1470 850 / 850
Review of Systems
-
History Source: Patient
All other systems: Not reviewed unless documented
Data Reviewed
-
Diagnostic Radiology: Report Reviewed by me
Labs: Labs Reviewed by me
[2023-05-09] MEDS: LASIX 20 MG PO (13:42)
[2023-05-09] MEDS: ELIQUIS 2.5 MG PO ×2 (13:42→22:37)
[2023-05-09 15:44] VITALS: BP 151/68
--- NOTE | 2023-05-09 16:46 | PTCARENOTE ---
Assumed care of patient at 16:00 from previous RN. No changes noted to previous assessment. VSS. Pox: 99% RA. Plan of care ongoing. Call guo within reach.
[2023-05-09 17:03] LABS: Glucose - Point of Care 99 mg/dl (70-99)
[2023-05-09 21:10] LABS: Glucose - Point of Care 117 mg/dl (70-99)
[2023-05-09 21:55] VITALS: BP 159/72
[2023-05-09 23:39] VITALS: BP 162/78
[2023-05-10 03:50] VITALS: BP 152/71
--- NOTE | 2023-05-10 03:50 | PTCARENOTE ---
Pts BP high 162/78 House [employer] notified, no new orders.
[2023-05-10 06:00] VITALS: BMI 36.7
[2023-05-10 07:05] LABS: Glucose - Point of Care 132 mg/dl (70-99)
[2023-05-10 07:55] VITALS: BP 147/69
[2023-05-10 08:07] LABS: Hematocrit 31.7 % (39.0-52.0); Hemoglobin 10.5 g/dL (13.0-18.0); Mean Corp Hgb Conc. 33.1 g/dL (33.0-37.0); Mean Corpuscular Hgb 34.2 pg (27.0-31.0); Mean Corpuscular Volume 103.3 fL (80.0-94.0); Mean Platelet Volume 10.1 fL (7.4-10.4); Platelet Count 220 10^3/uL (130-400); Red Blood Cell Count 3.07 10^6/uL (4.70-6.10); Red Cell Dist. Width 12.7 % (11.5-14.5); White Blood Cell Count 7.5 10^3/uL (4.8-10.8)
[2023-05-10] MEDS: LASIX 20 MG PO (08:19)
[2023-05-10] MEDS: TOPROL XL 25 MG PO (08:19)
[2023-05-10] MEDS: PROTONIX 40 MG PO (08:19)
[2023-05-10] MEDS: ELIQUIS 2.5 MG PO (08:19)
[2023-05-10 09:04] LABS: ALT (SGPT) 18 U/L (0-50); AST (SGOT) 25 U/L (17-59); Albumin 3.6 g/dl (3.5-5.0); Alkaline Phosphatase 65 U/L (38-126); Blood Urea Nitrogen 13 mg/dl (9-20); Calcium 9.1 mg/dl (8.4-10.2); Carbon Dioxide 23 mmol/L (22-30); Chloride 103 mmol/L (98-107); Estimated Creatinine Clearance 56 ml/min; Glucose 129 mg/dl (70-99); Potassium 3.4 mmol/L (3.5-5.1); Sodium 138 mmol/L (135-145); Total Bilirubin 0.4 mg/dl (0.2-1.3); Total Protein 6.2 g/dl (6.3-8.2); eGFR > 60.00
[2023-05-10] MEDS: KCL ELIXIR 40 MEQ PO (11:35)
[2023-05-10 11:40] LABS: Glucose - Point of Care 136 mg/dl (70-99)
--- NOTE | 2023-05-10 11:40 | W.PN.HOSP.TC ---
Addendum entered and electronically signed by Stefano Sultana MD 05/10/23 15:43:
[id number]
now heavy lifting
f/u surgery, pcp outpatient
cbc in 3 days
Original Note:
Today's Communication/Plan
-
cbc in 3 days, instructed on coming back to the hospital for bloody bms, black stool, at the minimum
low heavy lifting
Assessment / Plan
Assessment / Plan
General: Well Developed, Well Nourished and No Apparent Distress
HEENT: Normocephalic, Atraumatic, Moist Mucous Membranes
Respiratory: Clear to Auscultation; Negative Wheezes, Rales or Rhonchi
Cardiac: Regular Rhythm and S1/S2
GI: Tender and Other (Pt is 3 day post op); Negative Normal Bowel Sounds
Musculoskeletal: No Clubbing, No Cyanosis and No Edema
Skin: Warm and Dry
Neuro: Awake, Alert and Oriented
A/P:� Patient is an 83y M with PMH significant for s/p resection of descending colon/splenic flexure for extensive benign polyp 2001, hypertension and CHF who presents to ED complaining of N/V for the past 24 hours.
SBO
Pt underwent: 'Diagnostic laparoscopy, exploratory laparotomy, lysis
of adhesions, small-bowel resection with primary anastomosis.' as per Dr. Martinez 05/04. Today is POD #4
Operative findings: '1. Omental adhesions to midline, small bowel adhesions within the
right central abdomen and left upper quadrant at site of prior
anastomosis, lysis performed laparoscopically.
2. Dense mesenteric adhesion causing transition point in right mid
abdomen, conversion to open for complete lysis.
3. Stenotic area at transition point with difficulty milking
contents distally, small bowel resection with ROBERT 80 blue load
stapler and Shoaib technique.
-Advance to LRD - tolerating�continue upon discharge
-monitor for BM
#Acute Blood loss anemia
-bloody BM reported 4 nights ago
-Hgb remains stable, tolerating Eliquis
� CBC in 3 days with PCP
� If any bloody bowel movements, dark stool, instructed to come back to the hospital
SIRS - most likely non infectious source with SBO - cont to monitor off abx and treat with abx if needed for inc wbc or fever curve
s/p zosyn 3 day course
-No pulmonary symptoms indicative of any pneumonia at this time
Chronic HFpEF
�- Stable.� Not volume overloaded at present -
�- resume diuretics
-stop fluids
�- Follow I/Os, daily weights, etc.
Chronic Kidney Disease Stage 3a
Hypokalemia
-monitor and replete
ASCVD
�- Stable.� No chest pain or dyspnea.
�- will hold oral medications in pt with sbo
Paroxysmal Atrial Fibrillation
Heart Block s/p PPM
�- Stable.� Paced rhythm on tele.
�-Resume Eliquis, monitor hemoglobin, bloody stools outpatient. CBC in 3 days
�- Continue metoprolol.
�- Monitor on tele.
Benign Hypertension
�- Stable. Continue med regimen and adjust as needed.
DM-II
�- Stable.� Currently diet-controlled and off of all medications.
�- Follow glucose and cover with SSI if needed.
Obesity due to excess calories
�- Affects all aspects of care.
�- Encourage healthy diet and increased activity with goal of weight loss.
DVT Prophylaxis:� Eliquis
Code Status:� Full
More than 30 minutes spent in discharge including
Final examination of the patient
Summarizing hospital stay
Instructions for continuing care to all relevant caregivers
Preparation of discharge records, prescriptions, and referral forms
Total time spent (35 in minutes):
Anticipated Discharge: Today
Subjective/Interval History
-
Date of Service: May 10, 2023
No acute events, no bloody bowel movements
Objective Data
-
Labs:
Laboratory Results
05/10/23
06:11
WBC 7.5
Hgb 10.5 L
Hct 31.7 L
Plt Count 220
Sodium 138
Potassium 3.4 L
Chloride 103
Carbon Dioxide 23
BUN 13
Creatinine 1.1
Glucose 129 H
Calcium 9.1
Total Bilirubin 0.4
AST 25
ALT 18
Alkaline Phosphatase 65
Vital Signs:
Vital Signs
Temp Pulse Resp BP Pulse Ox
98.5 F 73 18 147/69 99
05/10/23 07:55 05/10/23 07:55 05/10/23 07:55 05/10/23 07:55 05/10/23 07:55
I&O
05/09/23 05/10/23 05/11/23
06:59 06:59 06:59
Intake Total 850 / 850 600 / 600
Balance 850 / 850 600 / 600
Review of Systems
-
History Source: Patient
All other systems: Not reviewed unless documented
Physical Exam
-
General: Well Developed, Well Nourished and No Apparent Distress
HEENT: Normocephalic, Atraumatic, Moist Mucous Membranes and Other
Respiratory: Clear to Auscultation; Negative Wheezes, Rales or Rhonchi
Cardiac: Regular Rhythm and S1/S2
GI: Tender and Other; Negative Normal Bowel Sounds
Musculoskeletal: No Clubbing, No Cyanosis and No Edema
Skin: Warm and Dry
Neuro: Awake, Alert and Oriented
Data Reviewed
-
Diagnostic Radiology: Report Reviewed by me
Labs: Labs Reviewed by me
--- NOTE | 2023-05-10 11:48 | W.DS.TRANS ---
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
-
Discharge Instructions:
Discharge Diagnosis/Procedures small bowel obstruction with diagnostic
laparotomy and exploratory laparotomy with lysis
of adhesion and small bowel resection
Diet Low Fiber
Activity No strenuous activity
Additional Activity Do not lift more than 15 pounds for the next 3-[address] once comfortable twisting/off narcotics
Bathing Restrictions OK to Shower
Blood Work cbc in 3 days with pcp, monitoring hgb
Wound Care Please return to the office to have whit
removed 2-3 weeks after surgery. Ok to shower
and wash gently. Cover incision with dry gauze
dressing if drainage noted.
Instructions:
Stand-Alone Forms:
Changes to Home Medications: No
Discharge Medications:
DC Medications w/original date entered in [employer]
allopurinol 300 mg tablet 300 mg PO DAILY Gout 06/19/17
escitalopram oxalate 10 mg tablet 10 mg PO DAILY Mental Health/Anxiety 06/19/17
aspirin 81 mg chewable tablet 81 mg PO DAILY Blood clot prevention/tx 03/18/21
gabapentin 300 mg capsule 300 mg PO BID Neurological Condition 03/18/21
rosuvastatin 20 mg tablet 20 mg PO QPM #90 tabs 03/19/21
ferrous sulfate 325 mg (65 mg iron) tablet (FeroSul) 325 mg PO DAILY #30 tabs 03/09/22
apixaban 2.5 mg tablet (Eliquis) 2.5 mg PO BID Blood Clot Prevention/Tx 01/11/23
furosemide 20 mg tablet 20 mg PO DAILY Fluid Retention/Swelling 01/11/23
pantoprazole 40 mg tablet,delayed release 40 mg PO DAILY Gastrointestinal Issue 01/11/23
metoprolol succinate 25 mg tablet,extended release 24 hr 25 mg PO BID Heart Failure 01/12/23
cyanocobalamin (vitamin B-12) 1,000 mcg tablet 1,000 mcg PO DAILY #30 tabs 01/19/23
Home Medication Changes
no
Pending Results: No
--- NOTE | 2023-05-10 12:07 | CM ---
Addendum entered by Francesca Joshi RN 05/10/23 15:21:
[facility] on weekend indicated [facility] unable to see till Thursday next week . Pt needs Labs. Vn changed to [facility] . Ni[facility]le notified and patient notified. Pt dc to home today
PLAN Home with [facility] fax [phone]
Original Note:
MD entered order for dc.
Spoke with pt he agrees with dc and IMM.
NG tube removed Tolerating low residue diet.
Requested [facility] referral placed in care port.
Son Truong will drive him home.
PLAN Home [facility]
--- NOTE | 2023-05-10 12:40 | PTCARENOTE ---
IV discontinued. Discharge paperwork printed and reviewed with patient who verbalized understanding. Pt transported off the floor via wheelchair by PCT with all belongings from the room.
== END 2023-05-10 12:42 | disposition home health service (06) | DRG 853 ==
LOC: 4 EAST ACU 06:08
PROVIDERS: Internal Medicine; Physician Assistant; ADMITTING PHYSICIAN Hospitalist; ATTENDING PHYSICIAN Internal Medicine; CONSULT PHYSICIAN Surgery; EMERGENCY PHYSICIAN Emergency Medicine; FAMILY PHYSICIAN Internal Medicine
PROC: 0DNV0ZZ Release Mesentery, Open Approach (ICD-10-PCS; 2023-05-05)
PROC: 0DNU0ZZ Release Omentum, Open Approach (ICD-10-PCS; 2023-05-05)
PROC: 0DB80ZZ Excision of Small Intestine, Open Approach (ICD-10-PCS; 2023-05-05)
PROC: 0D9670Z Drainage of Stomach with Drainage Device, Via Natural or Artificial Opening (ICD-10-PCS; 2023-05-05)
DX: A41.9 Sepsis, unspecified organism (principal); J69.0 Pneumonitis due to inhalation of food and vomit; D62 Acute posthemorrhagic anemia; I13.0 Hypertensive heart and chronic kidney disease with heart failure and stage 1 through stage 4 chronic kidney disease, or unspecified chronic kidney disease; I50.32 Chronic diastolic (congestive) heart failure; I44.2 Atrioventricular block, complete; K56.52 Intestinal adhesions [bands] with complete obstruction; R65.10 Systemic inflammatory response syndrome (SIRS) of non-infectious origin without acute organ dysfunction; I25.10 Atherosclerotic heart disease of native coronary artery without angina pectoris; I48.0 Paroxysmal atrial fibrillation; N18.9 Chronic kidney disease, unspecified; E11.22 Type 2 diabetes mellitus with diabetic chronic kidney disease; E66.09 Other obesity due to excess calories; Z53.31 Laparoscopic surgical procedure converted to open procedure; N18.31 Chronic kidney disease, stage 3a; E87.6 Hypokalemia
CPT/HCPCS: 88307; 43752; 71045; 71046; 74018; 74177; 80048; 80053; 82962; 83036; 83605; 83735; 85025; 85027; 87040; 87811; 93005; 96361; 96365; 96375; 99285; Q9967

== ENCOUNTER → 2023-06-09 10:11 | Outpatient (REF) | payer MEDICARE, OTHER, SELFPAY | LOC: RCS 10:11 | PROVIDERS: ATTENDING PHYSICIAN Nuclear Medicine Nuclear Cardiology; FAMILY PHYSICIAN Internal Medicine | DX: I31.39 Other pericardial effusion (noninflammatory) (principal); I35.0 Nonrheumatic aortic (valve) stenosis; I25.10 Atherosclerotic heart disease of native coronary artery without angina pectoris; I34.0 Nonrheumatic mitral (valve) insufficiency | CPT/HCPCS: 93306; Q9950 ==

== ENCOUNTER → 2023-11-25 13:01 | Outpatient (REF) | payer MEDICARE, OTHER, SELFPAY | LOC: RCS 13:01 | PROVIDERS: ATTENDING PHYSICIAN Nuclear Medicine Nuclear Cardiology; FAMILY PHYSICIAN Internal Medicine | DX: I31.39 Other pericardial effusion (noninflammatory) (principal); I35.0 Nonrheumatic aortic (valve) stenosis; I25.10 Atherosclerotic heart disease of native coronary artery without angina pectoris; I34.0 Nonrheumatic mitral (valve) insufficiency | CPT/HCPCS: 93306; Q9950 ==

== ENCOUNTER → 2024-04-01 10:09 | Outpatient (REF) | payer MEDICARE, OTHER, SELFPAY ==
[2024-04-01 11:14] LABS: % Basophils 0.8 % (0-2); % Eosinophils 2.8 % (0-6); % Immature Granulocytes 0.3 % (0-0.5); % Lymphocytes 11.9 % (20.5-51.1); % Monocytes 6.9 % (1.7-9.3); % Neutrophils 77.3 % (42.2-75.2); Absolute Basophils 0.1 10^3/uL (0-0.2); Absolute Eosinophils 0.2 10^3/uL (0-0.7); Absolute Lymphocytes 0.8 10^3/uL (1.2-3.4); Absolute Monocytes 0.4 10^3/uL (0.1-0.6); Hematocrit 42.9 % (39.0-52.0); Hemoglobin 14.8 g/dL (13.0-18.0); Mean Corp Hgb Conc. 34.5 g/dL (33.0-37.0); Mean Corpuscular Hgb 34.3 pg (27.0-31.0); Mean Corpuscular Volume 99.5 fL (80.0-94.0); Nucleated Red Blood Cells % 0 % (-); Platelet Count 183 10^3/uL (130-400); Red Blood Cell Count 4.31 10^6/uL (4.70-6.10); Red Cell Dist. Width 12.6 % (11.5-14.5); White Blood Cell Count 6.4 10^3/uL (4.8-10.8)
[2024-04-01 11:15] LABS: Urine Albumin 2+ (Neg - Trace); Urine Bilirubin Negative (Negative); Urine Character Clear (Clear); Urine Color Yellow; Urine Glucose Negative (Negative); Urine Ketone Negative (Negative); Urine Leukocyte Negative (Negative); Urine Nitrite Negative (Negative); Urine Occult Blood Negative (Negative); Urine Urobilinogen Negative (Neg - 1+)
[2024-04-01 11:24] LABS: Urine Squamous Cell 0-2 /LPF (Few)
[2024-04-01 11:25] LABS: Urine Red Blood Cell 0-2 /HPF (0-2); Urine White Cell 0-2 /HPF (0-5)
[2024-04-01 11:47] LABS: ALT (SGPT) 20 U/L (0-50); AST (SGOT) 34 U/L (17-59); Albumin 4.1 g/dl (3.5-5.0); Alkaline Phosphatase 94 U/L (38-126); Blood Urea Nitrogen 22 mg/dl (9-20); Calcium 9.7 mg/dl (8.4-10.2); Carbon Dioxide 32 mmol/L (22-30); Chloride 103 mmol/L (98-107); Glucose 105 mg/dl (70-99); HDL Cholesterol 50 mg/dl; LDL Cholesterol, Calculated 29 mg/dl; Phosphorus 3.3 mg/dl (2.5-4.5); Potassium 4.5 mmol/L (3.5-5.1); Sodium 143 mmol/L (135-145); Total Bilirubin 0.7 mg/dl (0.2-1.3); Total Cholesterol 117 mg/dl (50-199); Total Protein 7.5 g/dl (6.3-8.2); Triglyceride 192 mg/dl (10-149); Very Low Density Lipoprotein 38 mg/dl (0-30); eGFR 45.91
[2024-04-01 12:02] LABS: Uric Acid 8.2 mg/dl (3.5-8.5)
[2024-04-01 12:05] LABS: TSH 1.46 uIU/ml (0.47-4.68)
[2024-04-01 12:20] LABS: Microalbumin, Random Urine 10.4 mg/dl (0.6-1.7)
[2024-04-01 12:33] LABS: Glycohemoglobin (HgbA1c) 5.7 % (4.0-5.6)
[2024-04-02 11:01] LABS: Intact PTH 137.2 pg/ml (13.6-85.8)
== END ==
LOC: REG 10:09
PROVIDERS: ATTENDING PHYSICIAN Specialist; FAMILY PHYSICIAN Internal Medicine
DX: N18.32 Chronic kidney disease, stage 3b (principal); E11.51 Type 2 diabetes mellitus with diabetic peripheral angiopathy without gangrene; E78.2 Mixed hyperlipidemia; K92.2 Gastrointestinal hemorrhage, unspecified; E66.01 Morbid (severe) obesity due to excess calories; I10 Essential (primary) hypertension; M1A.9XX0 Chronic gout, unspecified, without tophus (tophi)
CPT/HCPCS: 36415; 80053; 80061; 81003; 81015; 82043; 82570; 83036; 83970; 84100; 84443; 84550; 85025

== ENCOUNTER → 2024-05-18 13:35 | Outpatient (REF) | payer MEDICARE, OTHER, SELFPAY | LOC: HWRCS 13:35 | PROVIDERS: ATTENDING PHYSICIAN Nuclear Medicine Nuclear Cardiology; FAMILY PHYSICIAN Internal Medicine | DX: R06.02 Shortness of breath (principal); I25.10 Atherosclerotic heart disease of native coronary artery without angina pectoris | CPT/HCPCS: 93306 ==

== ENCOUNTER → 2024-05-19 11:45 | Outpatient (REF) | payer MEDICARE, OTHER, SELFPAY | LOC: HWRCS 11:45 | PROVIDERS: ATTENDING PHYSICIAN Nuclear Medicine Nuclear Cardiology; FAMILY PHYSICIAN Internal Medicine | DX: R06.02 Shortness of breath (principal); I25.10 Atherosclerotic heart disease of native coronary artery without angina pectoris | CPT/HCPCS: 78452; 93017; A9500; J2785 ==

== ENCOUNTER 2024-05-27 06:28 | Day surgery (SDC) | payer MEDICARE, OTHER, SELFPAY ==
[2024-05-27] VITALS (16 sets, daily range): BP systolic 127–166; BP diastolic 48–94; BMI 36.6
[2024-05-27 07:16] LABS: Hematocrit 40.6 % (39.0-52.0); Hemoglobin 14.2 g/dL (13.0-18.0); Mean Corpuscular Hgb 35.4 pg (27.0-31.0); Mean Corpuscular Volume 101.2 fL (80.0-94.0); Mean Platelet Volume 10.4 fL (7.4-10.4); Platelet Count 167 10^3/uL (130-400); Red Blood Cell Count 4.01 10^6/uL (4.70-6.10); Red Cell Dist. Width 12.4 % (11.5-14.5); White Blood Cell Count 7.5 10^3/uL (4.8-10.8)
[2024-05-27 08:06] LABS: Blood Urea Nitrogen 18 mg/dl (9-20); Calcium 9.3 mg/dl (8.4-10.2); Carbon Dioxide 26 mmol/L (22-30); Chloride 109 mmol/L (98-107); Estimated Creatinine Clearance 47 ml/min; Glucose 115 mg/dl (70-99); Potassium 3.7 mmol/L (3.5-5.1); Sodium 145 mmol/L (135-145); eGFR 54.51
[2024-05-27] MEDS: NSS 1000 IV ×2 (08:11→09:38)
--- NOTE | 2024-05-28 10:33 | ITS.CL.CATH ---
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
Cardiac Catheterization
Procedure Report:
LEFT HEART CATHETERIZATION
Date of Procedure: May 27, 2024
Referring: Dr. Preston De Leon
PROCEDURES:
1. Left heart catheterization with coronary and single-plane left ventriculography
INDICATION: Resting and exertional dyspnea which improved with increasing furosemide dose. A recent stress study was notable for a fixed anteroapical defect suggestive of prior infarction and reduced LVEF estimated at 31% by Lexiscan and 35-40% by
echocardiogram with a mean aortic valve gradient of 35 mmHg.
ACCESS: Right radial artery, 6 Malagasy sheath
HEMODYNAMICS : (mmHg)
AO (s/d) : 170/89, 124
LV (s/d) : 198/22
LVEDP : 30
AORTIC VALVE:
Mean gradient: 31 mmHg
CORONARY FINDINGS
DOMINANCE: Right
LEFT MAIN: Normal
LEFT ANTERIOR DESCENDING: The LAD is moderately calcified as it arises normally from the left main. The LAD has diffuse but nonfocal atherosclerosis over its course including a 50% distal stenosis. Two diagonal branches arise from the proximal
LAD. The first diagonal branch is small supplying a limited territory. The second diagonal branch is a small-medium caliber vessel with a 60-70% stenosis in its midportion as it bifurcates into 2 daughter branches.
CIRCUMFLEX: The circumflex is a small caliber nondominant vessel supplying a single sizable obtuse marginal branch. Diffuse nonfocal luminal irregularities are noted
RIGHT CORONARY ARTERY: The right coronary artery is a dominant vessel with luminal irregularities over its course. The PDA has a 50% stenosis in its midportion and a large posterolateral branch has a 60% mid stenosis
VENTRICULOGRAPHY: Left ventriculography was performed in JONES projection. The digital single-plane left ventricular ejection fraction may be over estimated as the ventricle filled poorly with contrast but is visually estimated around 50%
SEDATION: 15 minutes of procedural sedation was utilized. An independent medical driver was present to assist with and help manage the patient's level of consciousness and physiologic status.
RADIATION SUMMARY: Fluoro Time (min): 5.1, Dose (mGy): 528, DAP (Gy.cm2) : 52.2
Closure Device: TR band
CONCLUSIONS
1. Poorly controlled hypertension with at least moderate aortic stenosis
2. Diffuse noncritical coronary artery disease
3. Low normal LVEF
RECOMMENDATIONS
1. No anginal symptoms. Dyspnea is likely to be multifactorial. He states that he felt much better on twice daily dosing of furosemide within the past several weeks when his dose was increased by telephone. He is currently only taking the
furosemide once per day and increasing the dose from 20 to 40 mg twice daily. A renal profile will be checked
2. Needs more aggressive control of blood pressures. May consider amlodipine versus further titration of lisinopril. He does have underlying renal insufficiency and we will hold off on further titration of lisinopril at the current time. Will
await blood work and home blood pressure monitoring
3. If shortness of breath persist then may need to consider transcatheter aortic valve replacement or dobutamine stress echo to assess aortic valve gradients as a most academic way to determine if his valvular disease is significant
Copy to: Dr. Preston De Leon
== END 2024-05-27 12:30 | disposition home or self-care (01) ==
LOC: CATH 06:28
PROVIDERS: ATTENDING PHYSICIAN Internal Medicine Interventional Cardiology; FAMILY PHYSICIAN Internal Medicine; OTHER PHYSICIAN Nuclear Medicine Nuclear Cardiology
DX: I25.10 Atherosclerotic heart disease of native coronary artery without angina pectoris (principal); I10 Essential (primary) hypertension; I35.0 Nonrheumatic aortic (valve) stenosis; N28.9 Disorder of kidney and ureter, unspecified; Z79.01 Long term (current) use of anticoagulants; Z79.82 Long term (current) use of aspirin; Z79.899 Other long term (current) drug therapy
CPT/HCPCS: 99152; 80048; 85027; 93458; C1894; Q9967

== ENCOUNTER → 2024-06-06 10:13 | Outpatient (REF) | payer MEDICARE, OTHER, SELFPAY ==
[2024-06-06 12:44] LABS: NT-proBNP 2140 pg/ml
[2024-06-06 13:03] LABS: Blood Urea Nitrogen 26 mg/dl (9-20); Calcium 9.4 mg/dl (8.4-10.2); Carbon Dioxide 27 mmol/L (22-30); Chloride 102 mmol/L (98-107); Glucose 119 mg/dl (70-99); Magnesium 1.6 mg/dl (1.6-2.3); Potassium 3.4 mmol/L (3.5-5.1); Sodium 144 mmol/L (135-145); eGFR 49.87
== END ==
LOC: REG 10:13
PROVIDERS: ATTENDING PHYSICIAN Nurse Practitioner; FAMILY PHYSICIAN Internal Medicine; OTHER PHYSICIAN Specialist; REFERRING PHYSICIAN Nuclear Medicine Nuclear Cardiology
DX: I50.22 Chronic systolic (congestive) heart failure (principal); I25.10 Atherosclerotic heart disease of native coronary artery without angina pectoris
CPT/HCPCS: 36415; 80048; 83735; 83880

== ENCOUNTER → 2024-08-08 11:47 | Outpatient (REF) | payer MEDICARE, OTHER, SELFPAY ==
[2024-08-08 12:56] LABS: NT-proBNP 1350 pg/ml
[2024-08-08 14:52] LABS: Blood Urea Nitrogen 36 mg/dl (9-20); Calcium 9.4 mg/dl (8.4-10.2); Carbon Dioxide 19 mmol/L (22-30); Chloride 112 mmol/L (98-107); Glucose 127 mg/dl (70-99); Potassium 4.6 mmol/L (3.5-5.1); Sodium 145 mmol/L (135-145); eGFR 39.51
== END ==
LOC: REG 11:47
PROVIDERS: ATTENDING PHYSICIAN Physician Assistant Medical; FAMILY PHYSICIAN Internal Medicine
DX: I50.20 Unspecified systolic (congestive) heart failure (principal)
CPT/HCPCS: 36415; 80048; 83880

== ENCOUNTER 2024-10-26 20:05 | Inpatient (IN) | payer MEDICARE, OTHER, SELFPAY ==
[2024-10-26 16:24] VITALS: BP 151/91
[2024-10-26 16:46] LABS: Hematocrit 43.1 % (39.0-52.0); Hemoglobin 14.8 g/dL (13.0-18.0); Mean Corp Hgb Conc. 34.3 g/dL (33.0-37.0); Mean Corpuscular Volume 100.9 fL (80.0-94.0); Nucleated Red Blood Cells % 0 % (-); Platelet Count 172 10^3/uL (130-400); Red Cell Dist. Width 12.0 % (11.5-14.5)
[2024-10-26 17:09] LABS: ALT (SGPT) 35 U/L (0-50); AST (SGOT) 49 U/L (17-59); Albumin 5.1 g/dl (3.5-5.0); Alkaline Phosphatase 70 U/L (38-126); Blood Urea Nitrogen 41 mg/dl (9-20); Calcium 9.5 mg/dl (8.4-10.2); Carbon Dioxide 24 mmol/L (22-30); Chloride 101 mmol/L (98-107); Glucose 114 mg/dl (70-99); Potassium 4.6 mmol/L (3.5-5.1); Sodium 138 mmol/L (135-145); Total Protein 8.5 g/dl (6.3-8.2); eGFR 28.99
[2024-10-26 17:12] LABS: Troponin I 0.022 ng/ml
[2024-10-26 18:34] VITALS: BMI 35.0
--- NOTE | 2024-10-26 19:09 | ED.GENMED ---
History of Present Illness
General
Chief Complaint: Dehydration Symptoms
Time Seen by Provider: 10/26/24 19:00
History of Present Illness
History of Present Illness:
Patient is an 84-year-old male with a history of coronary artery disease, hypertension, heart failure with reduced ejection fraction (35 to 40% ) who presents to the emergency department feeling dehydrated. Notes that they quadrupled his dose of
Lasix a few months ago. He reports over the past week he has been feeling generally weak, dehydrated with dry mouth, increasing tremors. Denies any lower extremity edema or difficulty breathing or chest pain.
Past History
Past History
ED Past Medical History: CAD, Cancer (colon cancer), CHF, HTN, Hypercholesterolemia and Other (BPH)
ED Past Surgical History: Orthopedic (Lumbar decompression laminectomy 2010 and 2014) and Other (COLON RESECTION)
Social History
Tobacco: Former smoker
Alcohol: None
Drug: None
Personal:
Living: alone
Employment: Employed
Family History
Family History: Other
Phy Exam
Physical Exam
Physical Exam:
GENERAL APPEARANCE: NAD, well developed/ well nourished
EYES lids/conjunctiva normal
EARS/NOSE/THROAT tacky mucous membranes
HEAD/NECK normocephalic atraumatic, neck is supple.
RESPIRATORY respiratory effort normal, speaks in full sentences, no accessory muscle use. Lungs clear to auscultation without rhonchi, wheezes, rales
CARDIAC Regular rate and rhythm, no edema.
ABDOMINAL Soft, ND/NT. No pulsatile masses on exam, rebound tenderness, Quijano sign or pain over Mcburney's point.
MUSCLES/EXTREMITIES No abnormal range of motion, no swelling.
SKIN Warm, pink and dry. No rashes
NEUROLOGICAL Speech is clear and appropriate. Normal level of consciousness. 5/5 strength in all extremities.
PSYCH Normal mood and affect. Judgement/competence is appropriate
Course
Orders/Labs/Results
Orders:
Orders
10/26/24 Dinner
1800 calorie (15 carb) Diabetic
At Your Request: Limited Participation
Does patient need a safe tray?: No
10/26/24 16:30
Electrocardiogram (*1) Urgent
Reason for Study: Chest Pain
EKG- Treatment ONCE
10/26/24 16:31
Complete Blood Count/With Diff Urgent
Comprehensive Metabolic Panel Urgent
Troponin I Urgent
10/26/24 19:08
0.9% Sodium Chloride 500 ml [Nss] 500 ml IV BOLUS
10/26/24 19:42
Admit/Transfer Patient As Directed
Co-Sign Provider:
Level of Care: Inpatient admission
Assign to:: Medical/Surgical
Physician / Group: Zara
Diagnosis: CRISPIN
Reason for Hospitalization: CRISPIN
Expected length of stay greater than two midnights?: Yes
ELOS- Estimated Length of Stay in days: 2
I certify the patient meets the requirements for IP care: Yes
PRN Pain Medication Management As Directed
May give lesser potent ordered pain med per pt: Yes
preference::
Protocol:: Medication orders for pain may be administered in a
manner that supports deferring to patient preference
when the pt is:
- Requesting an ordered lesser potent pain medication.
Least to most potent pain medications are defined
as: acetaminophen < NSAID < tramadol < opioids
(morphine, oxycodone, hydromorphone).
- Requesting a lesser dose of the same medication IF
ORDERED.
- Requesting a less intrusive route of administration
if both routes are prescribed by the provider (PO <
IV).
10/26/24 19:44
Code Status As Directed
Resuscitation Status: Full Code
10/26/24 21:03
0.9% Sodium Chloride 1000 ml [Nss] 1,000 ml IV 75 mls/hr
Acetaminophen [Tylenol] 650 mg PO Q4HPRN PRN
Apixaban [Eliquis] 2.5 mg PO BID
Bisacodyl [Dulcolax] 10 mg RECTAL [id number] PRN
Docusate W/Senna [Senokot-S] 1 tablet PO BIDPRN PRN
HydrALAZINE [Apresoline] 20 mg PO TIDPRN PRN
Ipratropium/Albuterol Sulfate [Duoneb] 3 ml INH R Q4HPRN PRN
Metoprolol Xl [Toprol Xl] 25 mg PO BID
Polyethylene Glycol Powder [Miralax] 17 grams PO DAILYPRN PRN
10/26/24 21:03
VTE Contraindication Routine
VTE Mechanical Device Contraindication: Medical Contraindication
Pharmocologic Contraindication: Medical Contraindication
Urinalysis Reflex To Culture Routine
Activity As Directed
Activity Level: With Assistance
Intake/ Output As Directed
Frequency: Per unit guidelines
Vital Signs As Directed
Frequency: Per unit guidelines
Weight As Directed
Frequency: Daily
10/26/24 21:25
Diphenhydramine [Benadryl] 50 mg PO HSPRN PRN
10/26/24 22:00
Cpap [RESP] HS
Patient to use own unit?: No
Set Pressure (cm H2O): 8
Instructions: Adjust per patient comfort
10/27/24 06:00
Basic Metabolic Panel IN AM
Complete Blood Count/No Diff IN AM
Creatine Phosphokinase IN AM
Magnesium IN AM
10/27/24 08:00
Allopurinol [Zyloprim] 100 mg PO DAILY
Aspirin Chewable [Low Strength Aspirin] 81 mg PO DAILY
Escitalopram Oxalate [Lexapro] 10 mg PO DAILY
Pantoprazole [Protonix] 40 mg PO DAILY
10/27/24 18:00
Rosuvastatin Calcium [Crestor] 20 mg PO QPM
Abnormal Lab Results
10/26/24
16:31
RBC 4.27 L 10^6/uL
(4.70-6.10)
MCV 100.9 H fL
(80.0-94.0)
MCH 34.7 H pg
(27.0-31.0)
Absolute Lymphs (auto) 0.9 L 10^3/uL
(1.2-3.4)
Absolute Monos (auto) 0.7 H 10^3/uL
(0.1-0.6)
Neutrophils % 77.1 H %
(42.2-75.2)
Lymphocytes % 11.7 L %
(20.5-51.1)
Monocytes % 9.5 H %
(1.7-9.3)
BUN 41 H mg/dl
(9-20)
Creatinine 2.2 H mg/dL
(0.7-1.3)
Glucose 114 H mg/dl
(70-99)
Total Protein 8.5 H g/dl
(6.3-8.2)
Albumin 5.1 H g/dl
(3.5-5.0)
10/26/24 16:31
10/26/24 16:31
Vital Signs
Initial and Last Documented VS:
Initial Vital Signs
Temp Pulse Resp BP Pulse Ox
98.9 F 91 16 151/91 98
10/26/24 16:24 10/26/24 16:24 10/26/24 16:24 10/26/24 16:24 10/26/24 16:24
Last Documented Vital Signs
Temp Pulse Resp BP Pulse Ox
99 F 104 20 158/83 97
10/26/24 21:17 10/26/24 21:41 10/26/24 21:17 10/26/24 21:41 10/26/24 21:17
*Pulse Oximetry
SaO2: 98
Oxygen Mode of Delivery: Room air
Patient hypoxic: no
*Critical Care Note
Total Time (30-74mins, 75-104mins- exclusive of procedures): Not Applicable
ED Attending Note
ED Attending Note
ED Attending Note:
Patient's lab work consistent with dehydration with CRISPIN. Will gently rehydrate given his history of heart failure. Will admit for further care
-
Portions of this chart may have been created with voice recognition software.� Occasional wrong word or��sound alike� substitutions may have occurred due to the inherent limitations of voice recognition software.
Discharge Plan
Departure
Patient Disposition: Admit
Date of Disposition: 10/26/24
Time of Disposition: 19:14
Presentation/result/management discussed w/ accepting MD/DO: Hospitalist
Discharge Problem:
CRISPIN (acute kidney injury)
Interventions
Interventions:
*Risk Screen - Suicide Last Done: 10/26/24 16:24
*General Assessment Last Done: 10/26/24 18:34
*Neglect/Abuse Screening Last Done: 10/26/24 16:24
*ED- Fall Risk Assessment Last Done: 10/26/24 16:24
*ED COVID-19 Vaccine History Last Done: 10/26/24 21:09
*Nursing Disposition Last Done: 10/26/24 20:59
ED- Cardiac Assessment Last Done: 10/26/24 18:34
ED- Neurological Assessment Last Done: 10/26/24 18:34
ED- Pulmonary Assessment Last Done: 10/26/24 18:34
Discharge Date and Time
Discharge Date/Time: 10/26/24 21:00
--- NOTE | 2024-10-26 19:22 | HPS.HSE ---
Family Physician
-
Family Physician: Radhames Mariano
Chief Complaint
-
Weakness/dehydration
History of Present Illness
This is a 84-year-old male who has a past medical history significant for CKD stage III, CHF with preserved EF, nonobstructive CAD, atrial fibrillation on anticoagulation, heart block status post pacemaker placement, history of colon cancer status
post bowel resection who presents to the emergency department with complaints of worsening tremors and sensation of dehydration.
With stated that they mostly noticed the symptoms beginning Thursday 3 days ago with increasing of his baseline essential tremor. Dry mouth. Weakness. He denies feeling dizzy or lightheaded. He denies any chest pain or palpitations. Denies any
fevers chills. He denies any cough. He denies any lower extremity swelling. Patient had a cardiac cath in May which showed nonobstructive CAD and CHF with preserved EF. At that time he was started on increased dose of Lasix 40 mg twice daily
up from 20 mg daily. Patient reported that recently his weight has been steady not up or down. However creatinine has been increasing since May from 1.4-1.7 and now 2.2. 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
increased doses of Lasix.
Patient denies any significant trouble urinating. He says he has to relax to urinate but he denies any nocturia. He denies weak stream. He denies any dysuria or hematuria and denies flank pain.
Patient has a prior history of CKD and actual renal failure in the setting of interstitial nephritis possibly from Ozempic which he did recover from. He denies any NSAID use.
In the emergency department patient was afebrile, blood pressure was 151/91 with a pulse of 91 and he was satting 98% on room air. ECG shows a sensed V paced rhythm at a rate of 94. Troponin is negative.
CBC is completely unremarkable. Electrolytes were normal. BUN and creatinine notable for a creatinine of 2.2 which is up from a baseline of around 1.4 in May.
Medical History
Past Medical History
Past Medical History: Reports Other
Additional Past Medical History:
Colon Cancer
Chronic HFpEF
Hypertension
Dyslipidemia
BPH
Lumbar DDD
ASCVD
Aortic stenosis
Complete heart block with permanent pacemaker
Sleep apnea
Hypothyroidism
Spinal stenosis
Diabetes mellitus type 2
Obesity
Past Surgical History: Reports Other
Additional Past Surgical History:
Partial Colectomy
Lumbar Laminectomy
PTCA with Stent
PPM Placement
Left Shoulder Surgery
Left Eye Surgery
Social History
Tobacco: Non-smoker
Alcohol: None
Drug: None
Family History
Family History: Not pertinent
Allergies / Home Medications
Allergies reflects when Allergies were last updated in [employer].
Home Medications with original date entered in [employer]
Allergy/Medication List:
Allergies
Allergy/AdvReac Type Severity Reaction Status Date / Time
methimazole Allergy serum Verified 01/11/23 11:10
sickness
oxycodone HCl [From Percocet] Allergy hyperactivi Verified 01/11/23 11:10
ty
Sulfa (Sulfonamide Allergy serum Verified 01/11/23 11:10
Antibiotics) sickness
trimethoprim Allergy Unknown Verified 01/11/23 11:10
Home Medications
allopurinol 300 mg tablet 300 mg PO DAILY Gout 06/19/17
escitalopram oxalate 10 mg tablet 10 mg PO DAILY Mental Health/Anxiety 06/19/17
aspirin 81 mg chewable tablet 81 mg PO DAILY Blood clot prevention/tx 03/18/21
gabapentin 300 mg capsule 300 mg PO BID Neurological Condition 03/18/21
rosuvastatin 20 mg tablet 20 mg PO QPM #90 tabs 03/19/21
ferrous sulfate 325 mg (65 mg iron) tablet (FeroSul) 325 mg PO DAILY #30 tabs 03/09/22
apixaban 2.5 mg tablet (Eliquis) 2.5 mg PO BID Blood Clot Prevention/Tx 01/11/23
furosemide 20 mg tablet 20 mg PO DAILY Fluid Retention/Swelling 01/11/23
pantoprazole 40 mg tablet,delayed release 40 mg PO DAILY Gastrointestinal Issue 01/11/23
metoprolol succinate 25 mg tablet,extended release 24 hr 25 mg PO BID Heart Failure 01/12/23
cyanocobalamin (vitamin B-12) 1,000 mcg tablet 1,000 mcg PO DAILY #30 tabs 01/19/23
Review of Systems
-
Constitutional: Reports No Symptoms
EENT: Reports Other (Dry mouth,)
Respiratory: Reports No Symptoms
Cardiac: Reports No Symptoms
Abdomen/GI: Reports No Symptoms
: Reports No Symptoms
Musculoskeletal: Reports No Symptoms
Skin: Reports No Symptoms
Neurological: Reports Other (Tremors)
Endocrine: Reports No Symptoms
Hematologic/Lymphatic: Reports No Symptoms
Psych: Reports No Symptoms
Physical Exam
Vital Signs
Vital Signs
Temp Pulse Resp BP Pulse Ox
98.9 F 91 16 151/91 98
10/26/24 16:24 10/26/24 16:24 10/26/24 16:24 10/26/24 16:24 10/26/24 19:14
Physical Exam
General: Other (83y M in no acute distress at present.)
HEENT: Moist mucous membranes and PERRLA
Respiratory: Clear and Other (Decreased BS at bases. Otherwise clear.)
Cardiac: S1/S2, Irregular Rhythm and Murmur (RUSB III/ BRENDAN)
Breast: Deferred by me
GI: Soft
Genito-urinary: Deferred by me
Musculoskeletal: No Clubbing, No Cyanosis and No Edema
Neuro: AO x 3
Hematologic/Lymphatic: No Lymphadenopathy
Psych: Calm
Laboratory Results
-
10/26/24 16:31
10/26/24 16:31
Laboratory Results
Total Bilirubin 0.5 mg/dl (0.2-1.3) 10/26/24 16:31
AST 49 U/L (17-59) 10/26/24 16:31
ALT 35 U/L (0-50) 10/26/24 16:31
Alkaline Phosphatase 70 U/L (38-126) 10/26/24 16:31
Troponin I 0.022 ng/ml 10/26/24 16:31
Data Reviewed
-
Medical Tests (Nuc Med, Echo, EKG etc): Image Personally Visualized and interpreted
Lab Data: Labs Reviewed by me
Old Records: Reviewed
Impression/Plan
-
IMPRESSION:
84-year-old male with history of nonobstructive CAD, CHF with preserved EF, atrial fibrillation on anticoagulation status post pacemaker placement for heart block, CKD stage III presenting to the emergency department with CRISPIN. He has had increased
doses of Lasix to 40 mg twice daily since May after cardiac cath. Since then his creatinine has been rising steadily and is now 2.2. He denies any new insults or injuries such as NSAIDs contrast agent. He denies any changes in BP medications.
He is on lisinopril. His weight has been steady. He denies orthopnea PND dyspnea on exertion shortness of breath or chest pain. He denies any fevers chills and he denies any urinary symptoms except for mild hesitancy.
PLAN:
CRISPIN -suspect this is secondary to diuretic use plus TONG inhibitor. Cannot rule out obstruction entirely. He has a history of interstitial nephritis with renal failure which he recovered from. He is no longer on medications for diabetes.
-Admit to MedSurg
-Hold Lasix, hold lisinopril
-As needed hydralazine for BP control
-Check kidney bladder ultrasound
-Monitor for retention
-Gentle hydration overnight with less than 5 cc an hour of normal saline
-UA
-Nephrology consultation
CHF/cad with preserved EF
-Holding Lasix and lisinopril for now
-Continue metoprolo-Daily weights l
- Continue with statin and aspirin
Atrial fibrillation
- Continue Eliquis 2.5 twice daily
- Continue rate control with metoprolol
JOSE
- CPAP at bedtime
DVT prophylaxis -on apixaban
CODE STATUS�full code
[2024-10-26] MEDS: NSS 500 IV (19:27)
[2024-10-26 20:00] VITALS: BP 157/85
[2024-10-26 21:17] VITALS: BP 158/83; BMI 35.2
[2024-10-26] MEDS: NSS 1000 IV (21:40)
[2024-10-26] MEDS: ELIQUIS 2.5 MG PO (21:41)
[2024-10-26] MEDS: TOPROL XL 25 MG PO (21:41)
[2024-10-26] MEDS: BENADRYL 50 MG PO (23:15)
[2024-10-26] MEDS: DESENEX/MITRAZOL/ZEASORB 1 APPLIC TOPICAL (23:15)
[2024-10-26 23:47] VITALS: BP 156/83
[2024-10-26 23:54] LABS: Urine Character Clear (Clear)
[2024-10-27 00:01] LABS: Urine Squamous Cell >30 /LPF (Few)
[2024-10-27 00:08] LABS: Urine White Cell Cast 0-2 /LPF
--- NOTE | 2024-10-27 00:15 | PTCARENOTE ---
Pt received from ED via stretcher. Ambulated to bed w/assist x1 and RW. Very tremulous. Oriented to surroundings and plan of care discussed. Admission and assessment completed. Unable to complete Med Rec as patient does not know the dosage of
current medications. Fungal vs MASD noted to gluteal cleft, perineum. Pericare completed and miconazole powder applied. #22 RH w/NSS at 75 mL. Safe environment maintained, call guo w/in reach.
[2024-10-27 05:44] VITALS: BMI 35.2
[2024-10-27 07:20] VITALS: BP 177/92
[2024-10-27 08:10] LABS: Hematocrit 40.6 % (39.0-52.0); Hemoglobin 13.8 g/dL (13.0-18.0); Mean Corp Hgb Conc. 34.0 g/dL (33.0-37.0); Mean Corpuscular Volume 102.8 fL (80.0-94.0); Platelet Count 143 10^3/uL (130-400); Red Cell Dist. Width 11.9 % (11.5-14.5)
[2024-10-27 08:21] VITALS: BMI 35.0
[2024-10-27 08:26] LABS: Blood Urea Nitrogen 38 mg/dl (9-20); Calcium 9.2 mg/dl (8.4-10.2); Carbon Dioxide 24 mmol/L (22-30); Chloride 108 mmol/L (98-107); Estimated Creatinine Clearance 32 ml/min; Glucose 120 mg/dl (70-99); Magnesium 2.3 mg/dl (1.6-2.3); Potassium 4.4 mmol/L (3.5-5.1); Sodium 140 mmol/L (135-145); eGFR 34.57
[2024-10-27] MEDS: TOPROL XL 25 MG PO ×2 (08:31→20:02)
[2024-10-27] MEDS: ELIQUIS 2.5 MG PO ×2 (08:31→20:02)
[2024-10-27] MEDS: LEXAPRO 10 MG PO (08:31)
[2024-10-27] MEDS: PROTONIX 40 MG PO (08:31)
[2024-10-27] MEDS: LOW STRENGTH ASPIRIN 81 MG PO (08:32)
[2024-10-27] MEDS: ZYLOPRIM PO (08:32)
[2024-10-27] MEDS: DESENEX/MITRAZOL/ZEASORB 1 APPLIC TOPICAL ×2 (08:32→23:30)
--- NOTE | 2024-10-27 09:35 | W.PN.HOSP.TC ---
Today's Communication/Plan
-
see A/P
Assessment / Plan
Assessment / Plan
HPI: 84-year-old male with history of nonobstructive CAD, CHF with preserved EF, atrial fibrillation on anticoagulation, status post pacemaker placement for heart block, CKD stage III; p/w lethargic, worsening resting tremor, feeling dehydrated; 2/
CRISPIN.
He has had increased doses of Lasix to 40 mg twice daily since May after cardiac cath. Since then his creatinine has been rising steadily and is now 2.2. He denies any new insults or injuries such as NSAIDs contrast agent. He denies any changes
in BP medications. He is on lisinopril. His weight has been steady. He denies orthopnea, PND, dyspnea on exertion, shortness of breath or chest pain.
A/P:
# CRISPIN- suspect this is secondary to diuretic use plus TONG inhibitor.
# History of interstitial nephritis with renal failure which he recovered from
Cannot rule out obstruction entirely. Monitor for retention
He is no longer on medications for diabetes.
Hold Lasix, hold lisinopril
As needed hydralazine for BP control
Check kidney bladder ultrasound
s/p gentle hydration NSS 75 cc/hr x1 bag
UA noted, urine culture sent, follow up
SCr improved from 2.2 to 1.9, baseline 1.3, cont to monitor SCr
Nephrology consulted
# CHF/CAD with preserved EF
Holding Lasix and lisinopril for now, monitor daily weight
Continue metoprolol, statin and aspirin
# Atrial fibrillation
Continue Eliquis 2.5 twice daily
Continue rate control with metoprolol
# JOSE
CPAP at bedtime
DVT prophylaxis -on apixaban
CODE STATUS�full code
Anticipated Discharge: 24 - 48 hours
Subjective/Interval History
-
Date of Service: October 27, 2024
Objective Data
-
Labs:
Laboratory Results
10/27/24
07:03
WBC 7.0
Hgb 13.8
Hct 40.6
Plt Count 143
Sodium 140
Potassium 4.4
Chloride 108 H
Carbon Dioxide 24
BUN 38 H
Creatinine 1.9 H
Glucose 120 H
Calcium 9.2
Vital Signs:
Vital Signs
Temp Pulse Resp BP Pulse Ox
36.4 C 68 16 177/92 95
10/27/24 07:20 10/27/24 08:31 10/27/24 07:20 10/27/24 08:31 10/27/24 07:20
I&O
10/26/24 10/27/24 10/28/24
06:59 06:59 06:59
Intake Total 795 / 795
Output Total 400 / 400 180 / 180
Balance 395 / 395 -180 / -180
Review of Systems
-
History Source: Patient
Neuro: Reports Tremors (worse than before )
Physical Exam
-
General: Well Developed, Well Nourished, No Apparent Distress, Comfortable, Conversant and Obese
HEENT: Normocephalic, Atraumatic and Moist Mucous Membranes
Respiratory: Clear to Auscultation and Non Labored Respirations; Negative Accessory Resp Muscle Use
Cardiac: Regular Rhythm and S1/S2
GI: Soft, Nontender, Nondistended and Normal Bowel Sounds
Musculoskeletal: No Clubbing, No Cyanosis and No Edema
Skin: Warm and Dry
Neuro: Awake, Alert, Oriented and Tremors (resting )
Psych: Calm and Intact Judgement/Insight
Data Reviewed
-
Labs: Labs Reviewed by me and Discussed with Patient
--- NOTE | 2024-10-27 11:29 | CM ---
CM reviewed chart, patient seen bedside, initial assessment completed. Patient resides independently in a multiple level home, three steps to enter with railings on either side. Patient reports having three walkers in the home, two fully handicap
accessible bathrooms. Patient reports [facility] in past, [facility] in past. PCP Radhames Mariano, pharmacy [facility] and mail order through [facility]. Patient denies insecurities at home, reports his son lives 20 minutes away, has great support from
a friend who calls him daily, has supportive neighbors. CM will continue to follow for all discharge planning needs.
Plan; home no needs, watch for VN needs
[2024-10-27] MEDS: REFRESH EYE DROPS (PF) 1 DROPS OPHTH (11:40)
--- NOTE | 2024-10-27 14:40 | W.CON.NEPH ---
Consultation
-
Date/Time Consultation Requested: 10/27/2024 7:30 AM
Date/Time Consultation Performed: 10/27/2024 2:40 PM
Requesting Provider:
Performing Provider: Dr. Garcia
Reason for Consultation: Acute kidney injury
Medical History
-
Chief Complaint: Acute kidney injury
History of Present Illness:
This is a 84-year-old male who has a past medical history significant for CKD stage III 1.4 06/17), CHF with preserved EF maintained on Lasix therapy, nonobstructive CAD, atrial fibrillation on anticoagulation with eleiquis, heart block status post
pacemaker placement, history of colon cancer status post bowel resection who presents to the emergency department with complaints of worsening tremors and sensation of dehydration.
noticed the symptoms beginning Thursday 3 days ago with increasing of his baseline essential tremor. Dry mouth. Weakness. He denies feeling dizzy or lightheaded. He denies any chest pain or palpitations. Denies any fevers chills. He denies
any cough. He denies any lower extremity swelling. Patient had a cardiac cath in May which showed nonobstructive CAD and CHF with preserved EF. At that time he was started on increased dose of Lasix 40 mg twice daily up from 20 mg daily.
Patient reported that recently his weight has been steady not up or down. However creatinine has been increasing since May from 1.4-1.7 and now 2.2. He saw his composite engineer few weeks ago who was disinclined to continue the increased doses of
Lasix.
Patient denies any significant trouble urinating. He says he has to relax to urinate but he denies any nocturia. He denies weak stream. He denies any dysuria or hematuria and denies flank pain.
Patient has a prior history of CKD and actual renal failure in the setting of interstitial nephritis possibly from Ozempic which he did recover from. He denies any NSAID use.
In the emergency department patient was afebrile, blood pressure was 151/91 with a pulse of 91 and he was satting 98% on room air. ECG shows a sensed V paced rhythm at a rate of 94. Troponin is negative.
CBC is completely unremarkable. Electrolytes were normal. BUN and creatinine notable for a creatinine of 2.2 which is up from a baseline of around 1.4 in May. Nephrology was consulted for acute on chronic renal failure.
Past Medical History
Colon Cancer
Chronic kidney disease stage III with baseline creatinine 1 4-1.7
Chronic HFpEF
Hypertension
Dyslipidemia
BPH
Lumbar DDD
ASCVD
Aortic stenosis
Complete heart block with permanent pacemaker
Sleep apnea
Hypothyroidism
Spinal stenosis
Diabetes mellitus type 2
Obesity
Partial Colectomy
Lumbar Laminectomy
PTCA with Stent
PPM Placement
Left Shoulder Surgery
Left Eye Surgery
Social History
Tobacco: Non-Smoker
Alcohol: None
Drug: None
Family History
Family History: Not Pertinent
Allergies / Home Medications
Allergy/AdvReac Type Severity Reaction Status Date / Time
methimazole Allergy serum Verified 10/26/24 16:29
sickness
oxycodone HCl (From Percocet) Allergy hyperactivi Verified 10/26/24 16:29
ty
Sulfa (Sulfonamide Allergy serum Verified 10/26/24 16:29
Antibiotics) sickness
trimethoprim Allergy Unknown Verified 10/26/24 16:29
�Medication �Instructions �Recorded �Confirmed �Type
escitalopram oxalate 10 mg tablet 10 mg PO DAILY Mental 06/19/17 05/27/24 History
Health/Anxiety
aspirin 81 mg chewable tablet 81 mg PO DAILY Blood clot 03/18/21 05/27/24 History
prevention/tx
gabapentin 300 mg capsule 300 mg PO BID Neurological 03/18/21 05/27/24 History
Condition
rosuvastatin 20 mg tablet 20 mg PO QPM #90 tabs 03/19/21 05/27/24 Rx
ferrous sulfate 325 mg (65 mg 325 mg PO DAILY #30 tabs 03/09/22 05/27/24 Rx
iron) tablet (FeroSul)
apixaban 2.5 mg tablet (Eliquis) 2.5 mg PO BID Blood Clot 01/11/23 05/27/24 History
Prevention/Tx
pantoprazole 40 mg tablet,delayed 40 mg PO DAILY Gastrointestinal 01/11/23 05/27/24 History
release Issue
metoprolol succinate 25 mg 25 mg PO BID Heart Failure 01/12/23 05/27/24 History
tablet,extended release 24 hr
allopurinol 200 mg tablet 200 mg PO DAILY 05/27/24 05/27/24 History
cholecalciferol (vitamin D3) 25 25 mcg PO DAILY 05/27/24 05/27/24 History
mcg (1,000 unit) capsule (Vitamin
D3)
cyanocobalamin (vitamin B-12) 100 100 mcg PO DAILY 05/27/24 05/27/24 History
mcg tablet (Vitamin B-12)
diphenhydramine HCl 50 mg tablet 50 mg PO HS PRN sleep 05/27/24 05/27/24 History
furosemide 40 mg tablet 40 mg PO BID #60 tabs 05/27/24 Rx
ipratropium bromide 42 mcg (0.06 2 spray intranasal BID 05/27/24 05/27/24 History
%) nasal spray
lisinopril 5 mg tablet 5 mg PO DAILY 05/27/24 05/27/24 History
multivitamin 1 tab PO DAILY 05/27/24 05/27/24 History
Review of Systems
-
History Source: Patient
All other systems: Negative unless noted
EENT: Other (Dry mouth)
Respiratory: No Symptoms
Cardiac: No Symptoms
: Difficulty Voiding (Required straight cath)
Neurological: Other (Upper extremity tremors)
Physical Exam
Vital Signs
Vital Signs
Temp Pulse Resp BP Pulse Ox
97.5 F 68 16 177/92 95
10/27/24 07:20 10/27/24 08:31 10/27/24 07:20 10/27/24 08:31 10/27/24 08:45
Lab Results
10/27/24 07:03
10/27/24 07:03
WBC 7.0 10^3/uL (4.8-10.8) 10/27/24 07:03
RBC 3.95 10^6/uL (4.70-6.10) L 10/27/24 07:03
Hgb 13.8 g/dL (13.0-18.0) 10/27/24 07:03
Hct 40.6 % (39.0-52.0) 10/27/24 07:03
Plt Count 143 10^3/uL (130-400) 10/27/24 07:03
Sodium 140 mmol/L (135-145) 10/27/24 07:03
Potassium 4.4 mmol/L (3.5-5.1) 10/27/24 07:03
Chloride 108 mmol/L (98-107) H 10/27/24 07:03
Carbon Dioxide 24 mmol/L (22-30) 10/27/24 07:03
BUN 38 mg/dl (9-20) H 10/27/24 07:03
Creatinine 1.9 mg/dL (0.7-1.3) H 10/27/24 07:03
eGFR 34.57 10/27/24 07:03
Glucose 120 mg/dl (70-99) H 10/27/24 07:03
Calcium 9.2 mg/dl (8.4-10.2) 10/27/24 07:03
Albumin 5.1 g/dl (3.5-5.0) H 10/26/24 16:31
Physical Exam
General: AOx3, Nontoxic , NAD
HEENT: PERRL, EOMI, Anicteric, Conjunctivae Clear, Ear/Nose Intact, Hearing Normal, Oropharynx Clear/Moist, Dentition Intact, Facial Symmetry, Neck Supple, Neck: Trachea Midline, No JVD and No Thyromegaly, no Bruits
Respiratory: Clear to auscultation bilaterally with normal lung exersion
Cardiac: S1/S2 and Regular Rate/Rhythm , chest wall pacemaker device, 5 out of 6 systolic ejection murmur at the right sternal border
Breast: Deferred by me
Abdomen: Soft, Nontender, Nondistended, Normal Bowel Sounds and No Hepatosplenomegaly
Rectal: Deferred by Provider
Genito-urinary: No Costovertebral Tenderness
Extremities: No Clubbing, No Cyanosis and No Edema
Skin: No Rash or open lesions
Neuro: Nonfocal/Grossly Intact, CN II-XII (Intact) and Strength (Musculoskeletal exam 5 out of 5 both upper and lower extremities)
Hematologic/Lymphatic: No Cervical Lymphadenopathy, No Submandibular Lymphadenopathy and No Supraclavicular Lymphadenopathy
Psych: Mood/afflect pleasant, Insight/judgement good and Appropriate
Vascular: plus 1 pedal and radial pulses
Data Reviewed
-
Ultrasound: Report Reviewed by me (Renal ultrasound reveals bilateral kidney cysts no evidence of obstructive uropathy normal kidney sizes)
Medical Tests (Nuc Med, Echo etc): Other (EKG report notes ventricular paced rhythm 94 beats per)
Labs: Labs Reviewed by me (BMP CBC, UA: 3+ albumin, 1 plus blood)
Old Records: Reviewed (Reviewed previous lab data in the chart from August 08, 2024 creatinine 1.7)
Assessment/Plan
-
Impression:
CRISPIN
CKD3b (1.4-1.7)
Hypertension
Congestive heart failure with preserved ejection fraction
Coronary artery disease
Atrial fibrillation
Pacemaker
Plan:
CRISPIN:
- Likely prerenal: volume status: euvolemic to dry
-With holding TONG inhibitor and diuretics at this time
-Creatinine improving towards baseline at 1.9
-No evidence of obstructive uropathy per review of renal ultrasound, however he did require straight straight cath
-Quantitate underlying proteinuria
- Continue bladder scan postvoid
[2024-10-27 15:09] VITALS: BP 163/87; PULSE 72; PULSE 73; O2SAT 98; O2SAT 99
[2024-10-27 15:15] VITALS: BP 163/81
[2024-10-27] MEDS: CRESTOR 20 MG PO (16:59)
[2024-10-27] MEDS: DESENEX/MITRAZOL/ZEASORB TOPICAL (20:01)
[2024-10-27 21:35] LABS: Glucose - Point of Care 132 mg/dl (70-99)
[2024-10-27 23:19] VITALS: BP 169/81
[2024-10-28 06:00] VITALS: BMI 35.4
--- NOTE | 2024-10-28 06:09 | PTCARENOTE ---
Pt aaox3 able to make his needs known.Denies pain.OOB to [facility] denies of any difficulty voiding.Bladder scan continued.Plan of care continued.
[2024-10-28 07:20] VITALS: BP 119/85
[2024-10-28 07:27] LABS: Glucose - Point of Care 136 mg/dl (70-99)
[2024-10-28] MEDS: ZYLOPRIM 100 MG PO (08:27)
[2024-10-28] MEDS: PROTONIX 40 MG PO (08:27)
[2024-10-28] MEDS: TOPROL XL 25 MG PO (08:27)
[2024-10-28] MEDS: ELIQUIS 2.5 MG PO (08:27)
[2024-10-28] MEDS: LOW STRENGTH ASPIRIN 81 MG PO (08:27)
[2024-10-28] MEDS: LEXAPRO 10 MG PO (08:27)
[2024-10-28] MEDS: DESENEX/MITRAZOL/ZEASORB 1 APPLIC TOPICAL (08:28)
--- NOTE | 2024-10-28 08:49 | W.PN.HOSP.TC ---
Today's Communication/Plan
-
see A/P
Assessment / Plan
Assessment / Plan
HPI: 84-year-old male with history of nonobstructive CAD, CHF with preserved EF, atrial fibrillation on anticoagulation, status post pacemaker placement for heart block, CKD stage III; p/w lethargic, worsening resting tremor, feeling dehydrated; 2/2
CRISPIN.
He has had increased doses of Lasix to 40 mg twice daily since May after cardiac cath. Since then his creatinine has been rising steadily and is now 2.2. He denies any new insults or injuries such as NSAIDs contrast agent. He denies any changes
in BP medications. He is on lisinopril. His weight has been steady. He denies orthopnea, PND, dyspnea on exertion, shortness of breath or chest pain.
A/P:
# CRISPIN- suspect this is secondary to diuretic use plus TONG inhibitor.
# History of interstitial nephritis with renal failure which he recovered from
Cannot rule out obstruction entirely. Monitor for retention
He is no longer on medications for diabetes.
Hold Lasix, hold lisinopril
As needed hydralazine for BP control
kidney bladder ultrasound unrevealing
s/p gentle hydration NSS 75 cc/hr x1 bag
UA noted, urine culture sent, follow up
SCr improved from 2.2 to 1.9, pending today level; baseline 1.3, cont to monitor SCr
Bladder scan without significant residual per RN
Nephrology on board
# CHF/CAD with preserved EF
Holding Lasix and lisinopril for now, monitor daily weight
Continue metoprolol, statin and aspirin
# Atrial fibrillation
Continue Eliquis 2.5 twice daily
Continue rate control with metoprolol
# JOSE
CPAP at bedtime
DVT prophylaxis -on apixaban
CODE STATUS�full code
PT recc: HH
DW RN
Anticipated Discharge: Within 24 hours
Subjective/Interval History
-
Date of Service: October 28, 2024
Objective Data
-
Labs:
Laboratory Results
10/28/24
08:04
Sodium Pending
Potassium Pending
Chloride Pending
Carbon Dioxide Pending
BUN Pending
Creatinine Pending
Glucose Pending
Calcium Pending
Vital Signs:
Vital Signs
Temp Pulse Resp BP Pulse Ox
36.6 C 72 18 119/85 98
10/27/24 23:19 10/28/24 08:27 10/27/24 23:19 10/28/24 08:27 10/27/24 23:19
I&O
10/27/24 10/28/24 10/29/24
06:59 06:59 06:59
Intake Total 795 / 795 2400 / 2400
Output Total 400 / 400 580 / 580
Balance 395 / 395 1820 / 1820
Review of Systems
-
History Source: Patient
Neuro: Reports Tremors (stable)
Physical Exam
-
General: Well Developed, Well Nourished, No Apparent Distress, Comfortable, Conversant and Obese
HEENT: Normocephalic, Atraumatic and Moist Mucous Membranes
Respiratory: Clear to Auscultation and Non Labored Respirations; Negative Accessory Resp Muscle Use
Cardiac: Regular Rhythm and S1/S2
GI: Soft, Nontender, Nondistended and Normal Bowel Sounds
Musculoskeletal: No Clubbing, No Cyanosis and No Edema
Skin: Warm and Dry
Neuro: Awake, Alert, Oriented and Tremors (resting )
Psych: Calm and Intact Judgement/Insight
Data Reviewed
-
Labs: Labs Reviewed by me and Discussed with Patient
[2024-10-28 09:07] LABS: Blood Urea Nitrogen 28 mg/dl (9-20); Calcium 9.0 mg/dl (8.4-10.2); Carbon Dioxide 24 mmol/L (22-30); Chloride 103 mmol/L (98-107); Estimated Creatinine Clearance 41 ml/min; Glucose 128 mg/dl (70-99); Magnesium 2.3 mg/dl (1.6-2.3); Potassium 4.3 mmol/L (3.5-5.1); Sodium 135 mmol/L (135-145); eGFR 45.91
--- NOTE | 2024-10-28 11:45 | CM ---
Following up on patient today.
PT/OT is recommending Home PT. CHASE Cardona met with patient, he was very pleasant, discussed Home PT, he declined. CHASE Cardona heard that patient will likely discharge home tomorrow so completed IMM @ 11:20. Patient has transportation home.
PLAN: Home with no needs
[2024-10-28 11:55] LABS: Glucose - Point of Care 120 mg/dl (70-99)
--- NOTE | 2024-10-28 12:20 | W.PN.NEPH.PH ---
Today's Communication / Plan
-
ok for d/c
Assessment/Plan
-
Impression:
CRISPIN
CKD3b (1.4-1.7)
Hypertension
Congestive heart failure with preserved ejection fraction
Coronary artery disease
Atrial fibrillation
Pacemaker
Plan:
CRISPIN:
Likely prerenal: cr down to baseline
BNP higher than before
wt is slightly up
ok to resume lasix at lower dose 20mg BID
ok to resume ACEI too
U PCR 1.7gm/gm of cr
BMP next week
f/u Dr Kaur
d/w pt
-
-
Date of Service: October 28, 2024
CC / HPI / ROS
-
Chief Complaint:
CRISPIN
History of Present Illness:
cr is better at 1.5
wt slightly up
BP stable
BNP high 6500
Review of Systems:
no CP or sob at rest
Labs
-
Labs:
WBC 7.0 10^3/uL (4.8-10.8) 10/27/24 07:03
RBC 3.95 10^6/uL (4.70-6.10) L 10/27/24 07:03
Hgb 13.8 g/dL (13.0-18.0) 10/27/24 07:03
Hct 40.6 % (39.0-52.0) 10/27/24 07:03
Plt Count 143 10^3/uL (130-400) 10/27/24 07:03
Sodium 135 mmol/L (135-145) 10/28/24 08:04
Potassium 4.3 mmol/L (3.5-5.1) 10/28/24 08:04
Chloride 103 mmol/L (98-107) 10/28/24 08:04
Carbon Dioxide 24 mmol/L (22-30) 10/28/24 08:04
BUN 28 mg/dl (9-20) H 10/28/24 08:04
Creatinine 1.5 mg/dL (0.7-1.3) H 10/28/24 08:04
eGFR 45.91 10/28/24 08:04
Glucose 128 mg/dl (70-99) H 10/28/24 08:04
Calcium 9.0 mg/dl (8.4-10.2) 10/28/24 08:04
Rwg-P-Jamocjxowad Pept 6520 pg/ml 10/28/24 08:04
Albumin 5.1 g/dl (3.5-5.0) H 10/26/24 16:31
Physical Exam
-
Vital Signs:
Vital Signs
Temp Pulse Resp BP Pulse Ox
98.3 F 72 16 119/85 98
10/28/24 07:20 10/28/24 08:27 10/28/24 07:20 10/28/24 08:27 10/28/24 07:20
Cardiovascular:: Regular rate and rhythm
Respiratory:: Bilateral: CTA
Lung Excursion:: Normal
Abdomen:: Nontender and Soft
Extremity Edema:: None: Bilateral:
Hawkins Catheter: No
[2024-10-28 13:29] VITALS: BP 154/89
--- NOTE | 2024-10-28 13:37 | W.DCSUMMARY ---
Discharge Summary
Discharge Data
Date of Admission: 10/26/24
Date of Discharge: 10/28/24
Total time spent discharging patient (in min): 40
-
Pending Results: No
Hospital Course
Principal Diagnosis:
CRISPIN due to diuretic use and TONG inhibitor side effect.
Chronic Diagnoses:�
History of interstitial nephritis with renal failure which he recovered from
Chronic heart failure with preserved ejection fraction
Coronary artery disease
Atrial fibrillation on anticoagulation,
Status post pacemaker placement for heart block,
CKD stage III,
JOSE on CPAP at bedtime
Consultations:�
Nephrology
Procedures:�
None
Clinical course:�
This is a 84-year-old male with past medical history as stated above, who presented with worsening resting tremor and feeling dehydrated, due to CRISPIN.
Problem 1:
CRISPIN due to diuretic use and TONG inhibitor side effect.
His prior to admission Lasix and lisinopril were on hold this admission.
Per nephrology, he can resume prior lisinopril 5 mg daily and continue decreased dose Lasix at 20 mg twice daily, following discharge.
His serum creatinine improved from 2.2 to 1.5 on the day of discharge.
He can check repeat BMP within 1 week, result to his PCP.
As for the rest of his medical problems, they were stable during his hospital stay.
Discharge Plan
-
Patient Disposition: Home with Home Care
Discharge Diagnosis/Procedures: Acute kidney injury suspect secondary to diuretic use plus TONG inhibitor side effect (Cr improved from 2.2 to 1.5 on discharge).
Condition: Fair
Diet: As tolerated
Activity: As tolerated
Driving Restrictions: As prior to admission
Blood Work: BMP in 1 week, result to PCP
Referrals:
Radhames Mariano DO [Family Provider, Internal Medicine] - in less than 1 week
Additional Discharge Medication Instructions: resume Lasix at lower dose 20 mg twice daily
ok to resume Lisinopril per snow technician
Your allopurinol dose decreased due to elevated creatinine.
Prescriptions:
New
allopurinol 100 mg Tablet
100 mg PO DAILY Qty: 30 0RF
furosemide [Lasix] 20 mg tablet
20 mg PO BID Qty: 60 0RF
(DME) BMP
See Rx Instructions .Route .MEDSUPPLY Qty: 1 0RF
Rx Instructions:
10/31/2024 - 11/04/2024, result to your PCP
# CRISPIN
Continued
escitalopram oxalate 10 MG tablet
10 mg PO DAILY
gabapentin 300 MG capsule
300 mg PO BID
aspirin 81 MG tablet,chewable
81 mg PO DAILY
rosuvastatin 20 MG tablet
20 mg PO QPM Qty: 90 5RF
ferrous sulfate [FeroSul] 325 mg (65 mg iron) Tablet
325 mg PO DAILY Qty: 30 0RF
Eliquis 2.5 mg Tablet
2.5 mg PO BID
pantoprazole 40 mg tablet,delayed release (DR/EC)
40 mg PO DAILY
metoprolol succinate 25 MG tablet extended release 24 hr
25 mg PO BID
multivitamin Tablet
1 tab PO DAILY
cyanocobalamin (vitamin B-12) [Vitamin B-12] 100 mcg Tablet
100 mcg PO DAILY
diphenhydramine HCl 50 mg Tablet
50 mg PO HS PRN (Reason: sleep)
lisinopril 5 mg Tablet
5 mg PO DAILY
ipratropium bromide 42 mcg (0.06 %) [place],Non-Aerosol
2 spray INTRANASAL BID
cholecalciferol (vitamin D3) [Vitamin D3] 25 mcg (1,000 unit) Capsule
25 mcg PO DAILY
Discontinued
allopurinol 200 mg Tablet
200 mg PO DAILY
furosemide 40 mg tablet
40 mg PO BID Qty: 60 6RF
Discharge Orders:
Discharge Patient (As Directed); Ordered 10/28/24
Ordered By: Kia Ding
Discharge Date and Time
Print Language: ERITREAN
== END 2024-10-28 14:50 | disposition home health service (06) | DRG 683 ==
LOC: 4 EAST ACU 20:05
PROVIDERS: Emergency Medicine; ADMITTING PHYSICIAN Internal Medicine; ATTENDING PHYSICIAN Internal Medicine; CONSULT PHYSICIAN Specialist; EMERGENCY PHYSICIAN Emergency Medicine; FAMILY PHYSICIAN Internal Medicine
DX: N17.9 Acute kidney failure, unspecified (principal); I13.0 Hypertensive heart and chronic kidney disease with heart failure and stage 1 through stage 4 chronic kidney disease, or unspecified chronic kidney disease; I44.2 Atrioventricular block, complete; I50.42 Chronic combined systolic (congestive) and diastolic (congestive) heart failure; T50.2X5A Adverse effect of carbonic-anhydrase inhibitors, benzothiadiazides and other diuretics, initial encounter; I25.10 Atherosclerotic heart disease of native coronary artery without angina pectoris; I48.91 Unspecified atrial fibrillation; Z79.01 Long term (current) use of anticoagulants; Z95.0 Presence of cardiac pacemaker; G47.33 Obstructive sleep apnea (adult) (pediatric); N18.32 Chronic kidney disease, stage 3b; Z79.899 Other long term (current) drug therapy; E86.0 Dehydration; G25.0 Essential tremor; N40.0 Benign prostatic hyperplasia without lower urinary tract symptoms; M51.369 Other intervertebral disc degeneration, lumbar region without mention of lumbar back pain or lower extremity pain; E03.9 Hypothyroidism, unspecified; E11.22 Type 2 diabetes mellitus with diabetic chronic kidney disease; E66.9 Obesity, unspecified; Z68.35 Body mass index [BMI] 35.0-35.9, adult; Z95.5 Presence of coronary angioplasty implant and graft; Z87.891 Personal history of nicotine dependence; Z88.2 Allergy status to sulfonamides; Z88.3 Allergy status to other anti-infective agents; Z79.82 Long term (current) use of aspirin; E78.00 Pure hypercholesterolemia, unspecified; Z85.038 Personal history of other malignant neoplasm of large intestine; Z90.49 Acquired absence of other specified parts of digestive tract
CPT/HCPCS: 76770; 80048; 80053; 81003; 81015; 82550; 82570; 82962; 83735; 83880; 84156; 84300; 84484; 85025; 85027; 87086; 93005; 96360; 97162; 97166; 99285

== ENCOUNTER → 2024-11-02 10:55 | Outpatient (REF) | payer MEDICARE, OTHER, SELFPAY ==
[2024-11-02 12:26] LABS: Hematocrit 41.4 % (39.0-52.0); Hemoglobin 14.2 g/dL (13.0-18.0); Mean Corp Hgb Conc. 34.3 g/dL (33.0-37.0); Mean Corpuscular Volume 101.7 fL (80.0-94.0); Nucleated Red Blood Cells % 0 % (-); Platelet Count 183 10^3/uL (130-400); Red Cell Dist. Width 11.9 % (11.5-14.5)
[2024-11-02 12:37] LABS: ALT (SGPT) 32 U/L (0-50); AST (SGOT) 36 U/L (17-59); Albumin 4.8 g/dl (3.5-5.0); Alkaline Phosphatase 74 U/L (38-126); Blood Urea Nitrogen 31 mg/dl (9-20); Calcium 10.2 mg/dl (8.4-10.2); Carbon Dioxide 22 mmol/L (22-30); Chloride 107 mmol/L (98-107); Glucose 92 mg/dl (70-99); HDL Cholesterol 64 mg/dl; LDL Cholesterol, Calculated 31 mg/dl; Potassium 5.2 mmol/L (3.5-5.1); Sodium 140 mmol/L (135-145); Total Protein 8.2 g/dl (6.3-8.2); Uric Acid 8.4 mg/dl (3.5-8.5); Very Low Density Lipoprotein 46 mg/dl (0-30); eGFR 34.57
[2024-11-02 14:23] LABS: Glycohemoglobin (HgbA1c) 5.8 % (4.0-5.6)
== END ==
LOC: REG 10:55
PROVIDERS: ATTENDING PHYSICIAN Internal Medicine; OTHER PHYSICIAN Internal Medicine; OTHER PHYSICIAN Specialist; REFERRING PHYSICIAN Nuclear Medicine Nuclear Cardiology
DX: G47.33 Obstructive sleep apnea (adult) (pediatric) (principal); M1A.9XX0 Chronic gout, unspecified, without tophus (tophi); R73.01 Impaired fasting glucose; Z09 Encounter for follow-up examination after completed treatment for conditions other than malignant neoplasm; N18.32 Chronic kidney disease, stage 3b
CPT/HCPCS: 36415; 80053; 80061; 83036; 83970; 84100; 84550; 85025

== ENCOUNTER 2025-01-24 10:46 | Emergency (ER) | payer MEDICARE, OTHER, SELFPAY ==
[2025-01-24 10:53] VITALS: BP 145/73
[2025-01-24 11:12] LABS: Hematocrit 37.1 % (39.0-52.0); Hemoglobin 12.7 g/dL (13.0-18.0); Mean Corp Hgb Conc. 34.2 g/dL (33.0-37.0); Mean Corpuscular Volume 99.7 fL (80.0-94.0); Nucleated Red Blood Cells % 0 % (-); Platelet Count 157 10^3/uL (130-400); Red Cell Dist. Width 12.9 % (11.5-14.5)
[2025-01-24 11:20] LABS: INR 1.49; PT 18.1 Sec (11.4-14.6)
[2025-01-24 11:35] LABS: ALT (SGPT) 40 U/L (0-50); AST (SGOT) 57 U/L (17-59); Albumin 4.3 g/dl (3.5-5.0); Alkaline Phosphatase 75 U/L (38-126); Blood Urea Nitrogen 42 mg/dl (9-20); Calcium 8.7 mg/dl (8.4-10.2); Carbon Dioxide 26 mmol/L (22-30); Chloride 103 mmol/L (98-107); Glucose 91 mg/dl (70-99); Potassium 3.5 mmol/L (3.5-5.1); Sodium 139 mmol/L (135-145); Total Protein 7.2 g/dl (6.3-8.2); eGFR 32.30
[2025-01-24 11:47] VITALS: BP 138/51
[2025-01-24 12:00] VITALS: BP 141/61
--- NOTE | 2025-01-24 12:01 | ED.GENMED ---
History of Present Illness
General
Chief Complaint: Rectal Bleeding
Source: patient
Exam Limitations: none
Time Seen by Provider: 01/24/25 11:27
Nursing documentation reviewed up to this point in time: agreed with
History of Present Illness
History of Present Illness:
Patient is a 5-year-old male on Eliquis and aspirin history of chronic kidney issue, CAD CHF A-fib on anticoagulation pacemaker presents to the ER for evaluation of rectal bleeding. Patient reports at 2 AM he had to have a bowel movement he had a
strain and had brown stool mixed with bright red blood. He had several episodes since. He denies any abdominal pain nausea vomiting dizziness lightheadedness. No active bleeding here in the ER.
Past History
Past History
ED Past Medical History: CAD, Cancer (colon cancer), CHF, HTN, Hypercholesterolemia and Other (BPH)
ED Past Surgical History: Orthopedic (Lumbar decompression laminectomy 2010 and 2014) and Other (COLON RESECTION)
Social History
Tobacco: Former smoker
Alcohol: None
Drug: None
Personal:
Living: alone
Employment: Employed
Family History
Family History: Other
Phy Exam
General Physical Exam
General Presentation: no apparent distress
General age: appears stated age
General Skin: warm and dry
General Habitus: normal
General Mental: alert
General Hydration: appears well hydrated
Cardiovascular Exam
Cardiovascular Exam: regular rate/rhythm and normal peripheral pulses
Gastrointestinal Exam
Gastrointestinal Exam: non tender, soft and other (rectal: Small external hemorrhoid visible no active bleeding small internal hemorrhoid palpated, small mount of brown stool on exam also noted some bright red blood on my glove as well)
Neurological Exam
Neurological Exam: alert and oriented x3
Musculoskeletal Exam
Musculoskeletal Exam: full ROM
Skin Exam
Skin Exam: normal color and warm/dry
Psychiatric Exam
Psychiatric Exam: normal mood/affect
Course
Orders/Labs/Results
Orders:
Orders
01/24/25 11:03
Type+Screen Urgent
Complete Blood Count/With Diff Urgent
Comprehensive Metabolic Panel Urgent
Prothrombin Time Urgent
01/24/25 12:15
Vital Signs- Treatment ONCE
Frequency: Once
Abnormal Lab Results
01/24/25
11:03
RBC 3.72 L 10^6/uL
(4.70-6.10)
Hgb 12.7 L g/dL
(13.0-18.0)
Hct 37.1 L %
(39.0-52.0)
MCV 99.7 H fL
(80.0-94.0)
MCH 34.1 H pg
(27.0-31.0)
Abs Immat Gran (auto) 0.1 H 10^3/uL
(0-0.05)
Absolute Neuts (auto) 7.0 H 10^3/uL
(1.4-6.5)
Absolute Lymphs (auto) 0.6 L 10^3/uL
(1.2-3.4)
Absolute Monos (auto) 0.8 H 10^3/uL
(0.1-0.6)
Immature Gran % 0.6 H %
(0-0.5)
Neutrophils % 81.3 H %
(42.2-75.2)
Lymphocytes % 6.8 L %
(20.5-51.1)
Monocytes % 9.7 H %
(1.7-9.3)
PT 18.1 H Sec
(11.4-14.6)
BUN 42 H mg/dl
(9-20)
Creatinine 2.0 H mg/dL
(0.7-1.3)
01/24/25 11:03
01/24/25 11:03
Vital Signs
Initial and Last Documented VS:
Initial Vital Signs
Temp Pulse Resp BP Pulse Ox
98.5 F 73 18 145/73 99
01/24/25 10:53 01/24/25 10:53 01/24/25 10:53 01/24/25 10:53 01/24/25 10:53
Last Documented Vital Signs
Temp Pulse Resp BP Pulse Ox
98.5 F 73 18 145/73 99
01/24/25 10:53 01/24/25 10:53 01/24/25 10:53 01/24/25 10:53 01/24/25 12:04
Service Technician Copier consulted with Physician
Service Technician Copier consulted with physician?: Yes
Name of Physician Consulted: Lashaun
MDM/Problems Addressed
MDM/Problems Addressed:
As documented patient is 85 male on Eliquis and aspirin history of A-fib pacemaker chronic kidney issues presents for rectal bleeding. Patient admits to straining at 2 AM and had brown stool mixed with bright red blood. He had 2 episodes since.
No episodes here in the ER. On exam there is obvious palpable small internal and external hemorrhoid. No active bleeding. On rectal exam I was able to see small amount of brown stool mixed with bright red blood. He is stable. He has no acute
distress he is not tachycardic his hemoglobin is stable at 12.7. He has a creatinine of 2.0 which is baseline.
He has had no prior history of stroke. Patient noted in the past
In 2022 to have heme positive stool and had endoscopy colonoscopy which showed chronic duodenal ulcer that was not the site of bleeding at that time. Case discussed with ED physician will have patient hold dose this evening and call colorectal
surgery for an appointment soon as possible. Discussed Colace for stool softeners avoiding straining and will prescribe Anusol suppository. Strict return precautions given.
Chronic conditions affecting care:
A-fib Eliquis aspirin CAD
*Pulse Oximetry
SaO2: 99
Oxygen Mode of Delivery: Room air
Patient hypoxic: no
*Critical Care Note
Total Time (30-74mins, 75-104mins- exclusive of procedures): Not Applicable
ED Attending Note
-
Portions of this chart may have been created with voice recognition software.� Occasional wrong word or��sound alike� substitutions may have occurred due to the inherent limitations of voice recognition software.
Discharge Plan
Departure
Patient Disposition: Home (Routine Discharge)
Date of Disposition: 01/24/25
Time of Disposition: 12:15
Patient with high blood pressure during this ER visit?: Yes
Covid-19: Not Applicable
Discharge Problem:
Hemorrhoid, Rectal bleeding
Instructions: Hemorrhoids (DC)
Prescriptions:
New
hydrocortisone acetate [Anusol-HC] 25 mg suppository
25 mg [place] BID Qty: 12 0RF
No Action
escitalopram oxalate 10 MG tablet
10 mg PO DAILY
aspirin 81 MG tablet,chewable
81 mg PO DAILY
rosuvastatin 20 MG tablet
20 mg PO QPM Qty: 90 5RF
ferrous sulfate [FeroSul] 325 mg (65 mg iron) Tablet
325 mg PO DAILY Qty: 30 0RF
Eliquis 2.5 mg Tablet
2.5 mg PO BID
pantoprazole 40 mg tablet,delayed release (DR/EC)
40 mg PO DAILY
metoprolol succinate 25 MG tablet extended release 24 hr
25 mg PO BID
cyanocobalamin (vitamin B-12) [Vitamin B-12] 100 mcg Tablet
100 mcg PO DAILY
lisinopril 5 mg Tablet
5 mg PO DAILY
ipratropium bromide 42 mcg (0.06 %) [place],Non-Aerosol
2 spray INTRANASAL BID
cholecalciferol (vitamin D3) [Vitamin D3] 25 mcg (1,000 unit) Capsule
25 mcg PO DAILY
furosemide [Lasix] 20 mg tablet
20 mg PO BID Qty: 60 0RF
Theragen Tablet
1 tab PO DAILY
Referrals:
Wesly Adhikari MD [Active, ColoRectal]
Activity Restrictions/Additional Instructions:
As discussed please hold Eliquis dose tonight. A prescription for Anusol suppositories was sent to your pharmacy please use as directed.
Please call colorectal surgery for an appointment as soon as possible.
Please use [id number] Colace for stool softener and avoid straining.
Return however to the ER if any worsening of symptoms of increased bleeding or any further concerns including abdominal pain lightheaded dizziness.
Please also follow-up with your family doctor in the next several days.
Today your creatinine was 2.0 and it was last 1.November 02. Follow-up with your kidney specialist as discussed.
Interventions
Interventions:
*Risk Screen - Suicide Last Done: 01/24/25 10:55
*General Assessment Last Done: 01/24/25 10:55
*Neglect/Abuse Screening Last Done: 01/24/25 10:55
*ED COVID-19 Vaccine History Last Done: 01/24/25 10:55
*ED Influenza Vaccine History Last Done: 01/24/25 10:55
[facility] Risk Assessment Tool Last Done: 01/24/25 11:34
XG-Evxwco-Se[place]fmbye Assessment Last Done: 01/24/25 11:34
ED- Cardiac Assessment Last Done: 01/24/25 11:34
ED- Pulmonary Assessment Last Done: 01/24/25 11:34
Discharge Date and Time
Print Language: BENGALI
[2025-01-24 12:16] VITALS: BP 137/49
== END 2025-01-24 12:43 | disposition home or self-care (01) ==
LOC: EMR 10:46
PROVIDERS: EMERGENCY PHYSICIAN Emergency Medicine; FAMILY PHYSICIAN Internal Medicine
DX: K64.8 Other hemorrhoids (principal); K64.4 Residual hemorrhoidal skin tags; I11.0 Hypertensive heart disease with heart failure; I50.9 Heart failure, unspecified; E78.00 Pure hypercholesterolemia, unspecified; I25.10 Atherosclerotic heart disease of native coronary artery without angina pectoris; I48.91 Unspecified atrial fibrillation; Z79.01 Long term (current) use of anticoagulants; Z95.0 Presence of cardiac pacemaker; Z87.891 Personal history of nicotine dependence; Z85.038 Personal history of other malignant neoplasm of large intestine; Z87.11 Personal history of peptic ulcer disease
CPT/HCPCS: 99283; 80053; 85025; 85610; 86850; 86900; 86901

== ENCOUNTER 2025-01-30 17:50 | Inpatient (IN) | payer MEDICARE, OTHER, SELFPAY ==
[2025-01-30] VITALS (8 sets, daily range): BP systolic 116–158; BP diastolic 40–78; BMI 34.7
[2025-01-30 15:39] LABS: Hematocrit 35.8 % (39.0-52.0); Hemoglobin 12.4 g/dL (13.0-18.0); Mean Corp Hgb Conc. 34.6 g/dL (33.0-37.0); Mean Corpuscular Volume 100.3 fL (80.0-94.0); Nucleated Red Blood Cells % 0 % (-); Platelet Count 144 10^3/uL (130-400); Red Cell Dist. Width 12.7 % (11.5-14.5)
[2025-01-30 15:55] LABS: ALT (SGPT) 61 U/L (0-50); AST (SGOT) 109 U/L (17-59); Albumin 4.3 g/dl (3.5-5.0); Alkaline Phosphatase 101 U/L (38-126); Blood Urea Nitrogen 56 mg/dl (9-20); Calcium 9.4 mg/dl (8.4-10.2); Carbon Dioxide 23 mmol/L (22-30); Chloride 101 mmol/L (98-107); Glucose 90 mg/dl (70-99); Lipase 313 U/L (23-300); Magnesium 2.7 mg/dl (1.6-2.3); Potassium 3.3 mmol/L (3.5-5.1); Sodium 138 mmol/L (135-145); Total Protein 7.4 g/dl (6.3-8.2); eGFR 14.95
[2025-01-30] MEDS: NSS 1000 IV ×2 (15:55→21:14)
--- NOTE | 2025-01-30 16:02 | ED.GENMED ---
History of Present Illness
<Juana Pearson NP - Last Filed: 01/30/25 19:38>
General
Chief Complaint: Alcohol Problem
Source: patient
Exam Limitations: none
Time Seen by Provider: 01/30/25 15:20
Nursing documentation reviewed up to this point in time: agreed with
History of Present Illness
History of Present Illness:
Patient to the emergency department from home with complaint of weakness, dehydration. He has a history of chronic alcohol use. He states he has been drinking more vodka that is typical for him. He states for the last 2 days his appetite has been
poor and he does not feel like he can manage at home. He initially asked for inpatient alcohol rehab but then states he feels that he can stop his alcohol use on his own. He states he drinks to stop the pain in his bilateral lower extremities.
Known history of peripheral neuropathy. he was brought to the ED via EMS for evaluation. He denies any fever/chills, shortness of breath, chest pain/pressure, abdominal pain, nausea/vomiting/diarrhea.
Past History
<Juana Pearson NP - Last Filed: 01/30/25 19:38>
Past History
ED Past Medical History: CAD, Cancer (colon cancer), CHF, HTN, Hypercholesterolemia, Other (BPH) and Other (essential tremor)
ED Past Surgical History: Orthopedic (Lumbar decompression laminectomy 2010 and 2014) and Other (COLON RESECTION)
Social History
Tobacco: Former smoker
Alcohol: None
Drug: None
Personal:
Living: alone
Employment: Employed
Family History
Family History: Other
Review of Systems
<Juana Pearson NP - Last Filed: 01/30/25 19:38>
Review of Systems
Allergies reviewed?: Yes
All Other Systems: ROS reviewed and negative except as documented in HPI and ROS
Constitutional: Reports no symptoms
EENT: Reports no symptoms
Respiratory: Reports no symptoms
Cardiac: Reports no symptoms
ABD/GI: Reports no symptoms
: Reports no symptoms
Musculoskeletal: Reports other (He complains of neuropathy of bilateral lower extremities. States gabapentin is not helping him.)
Skin: Reports no symptoms
Neurological: Reports weakness
Psychiatric: Reports no symptoms
Phy Exam
<Juana Pearson DIRECTOR OF SOFTWARE DEVELOPMENT - Last Filed: 01/30/25 19:38>
General Physical Exam
General Presentation: mild distress
General age: appears stated age
General Skin: warm and dry
General Habitus: normal
General Mental: alert
Cardiovascular Exam
Cardiovascular Exam: regular rate/rhythm
Gastrointestinal Exam
Gastrointestinal Exam: non tender, soft, no pulsatile mass and non distended
Neurological Exam
Neurological Exam: alert, oriented x3 and CN II-XII intact
Musculoskeletal Exam
Musculoskeletal Exam: full ROM and neuro vasc intact
Skin Exam
Skin Exam: normal color and warm/dry
Psychiatric Exam
Psychiatric Exam: normal mood/affect
Scores
<Juana Pearson DIRECTOR OF SOFTWARE DEVELOPMENT - Last Filed: 01/30/25 19:38>
Withdrawal Assessment of Alcohol
Withdrawal Assessment Completed?: Yes
Nausea and Vomiting: No nausea and no vomiting
Tactile Disturbances: None
Tremor: No tremor (Patient with underlying essential tremor)
Auditory Disturbances: Not present
Paroxysmal Sweats: No sweat visible
Visual Disturbances: Not present
Anxiety: No anxiety, at ease
Headache, Fullness in Head: Not present
Agitation: Normal activity
Orientation and clouding of sensorium: Oriented and can do serial additions
Total CIWA Score: 0
Alcohol Withdrawal Medication Recommendation: Equal to MSAS Score 0-4. Monitor & re-assess q2hrs, NO MEDICATION NEEDED
<Priscilla Welsh DO - Last Filed: 01/30/25 19:52>
Withdrawal Assessment of Alcohol
Total CIWA Score: 0
Alcohol Withdrawal Medication Recommendation: Equal to MSAS Score 0-4. Monitor & re-assess q2hrs, NO MEDICATION NEEDED
Course
<Juana Pearson NP - Last Filed: 01/30/25 19:38>
Orders/Labs/Results
Orders:
Orders
01/30/25 13:31
Electrocardiogram (*1) Urgent
Reason for Study: Other
Other Reason for Exam: alcohol withdrawl
01/30/25 13:32
EKG- Treatment ONCE
01/30/25 Dinner
2000 calorie (17 carb) Diabetic
01/30/25 15:29
Alcohol Urgent
Complete Blood Count/With Diff Urgent
Comprehensive Metabolic Panel Urgent
Folate Urgent
Comment: ADD ON
Lipase Urgent
Magnesium Urgent
Vitamin B12 Urgent
Comment: ADD ON
01/30/25 15:49
Add On- LAB Urgent
Tests Added?: alcohol, lipase
Urinalysis Reflex To Culture Urgent
0.9% Sodium Chloride 1000 ml [Nss] 1,000 ml IV BOLUS
01/30/25 16:30
Bladder Scan- Treatment ONCE
01/30/25 17:05
Admit/Transfer Patient As Directed
Co-Sign Provider:
Level of Care: Inpatient admission
Assign to:: Telemetry
Physician / Group: Htay
Diagnosis: CRISPIN
Reason for Telemetry: Arrhythmia
Date to Stop Telemetry: 02/02/25
Time to Stop Telemetry: 11:00
Reason for Hospitalization: IVFs, Alcohol Withdrawal
Expected length of stay greater than two midnights?: Yes
ELOS- Estimated Length of Stay in days: 3
I certify the patient meets the requirements for IP care: Yes
01/30/25 17:06
PRN Pain Medication Management As Directed
May give lesser potent ordered pain med per pt: Yes
preference::
Protocol:: Medication orders for pain may be administered in a
manner that supports deferring to patient preference
when the pt is:
- Requesting an ordered lesser potent pain medication.
Least to most potent pain medications are defined
as: acetaminophen < NSAID < tramadol < opioids
(morphine, oxycodone, hydromorphone).
- Requesting a lesser dose of the same medication IF
ORDERED.
- Requesting a less intrusive route of administration
if both routes are prescribed by the provider (PO <
IV).
01/30/25 17:09
Code Status As Directed
Resuscitation Status: Full Code
01/30/25 17:25
Add On- LAB Routine
Tests Added?: vitamin b12, folic acid
Potassium Chloride 10% Elixir [KCl Elixir] 40 meq PO NOW STA
01/30/25 19:47
0.9% Sodium Chloride 1000 ml [Nss] 1,000 ml IV 80 mls/hr
0.9% Sodium Chloride [Nss (Preservative Free)] See Protocol IV PRN PRN
Acetaminophen [Tylenol] 650 mg PO Q4HPRN PRN
Dextrose 50%-Water [Dextrose 50% Syringe] 12.5 grams IV [id number] PRN
FOLic ACID [Folvite] 1 mg 0.9% Sodium Chloride 50 ml [Nss] 50 ml IV DAILYPRN
Glucagon [GlucaGen] 1 mg IM PRN PRN
Lorazepam [Ativan] 1 mg IV Q1HPRN PRN
Lorazepam [Ativan] 1 mg PO Q2HPRN PRN
Lorazepam [Ativan] 2 mg IV Q1HPRN PRN
Rosuvastatin Calcium [Crestor] 20 mg PO QPM
01/30/25 19:47
Case Management Consult Once
Case Management Consult: Other
Comment: Substance abuse counseling
DIETARY IP CONSULT Routine
Reason for Consult: Nutrition support, possible refeeding guidelines
Activity As Directed
Activity Level: Out of Bed-Early Mobility
With Assistance
Bedside Glucose Monitoring As Directed
Frequency: AC&HS
Additional Instructions:: Change to q6h if pt on TPN, tube feeding or not eating
Bladder Scan As Directed
Follow Bladder Retention/Intermittent Cath Algorithm?: Yes
PRN if no void in __ hours: 6
Frequency: Per Retention Algorithm
If Bladder Scan Result >: 400
then:: Straight cath
I&O [Intake/ Output] As Directed
Frequency: q12h
MSAS SCORE As Directed
MSAS Score 0-4: Repeat MSAS every 2 hours until 0-4 for three consecutive assessments, then every 4 hours x 48
hours.
MSAS Score 5-7: For MILD withdrawl symptoms. Repeat MSAS and RASS every 2 hours
MSAS Score 8-11: For MODERATE withdrawal symptoms. Repeat MSAS and RASS every 1 hour. Consider ICU or IMU
level of care.
MSAS Score > 11: For SEVERE withdrawal symptoms. Repeat MSAS and RASS every 1 hour. Notify provider, consider
ICU level of care.
MSAS Additional Instructions: If no improvement or no decrease in score from severe to moderate within 12
hours, consult psychiatry
MSAS Notify Provider: Notify provider if patient requires more than 10 mg of Lorazepam in eight hour period.
Straight Cath As Directed
Frequency: Per Retention Algorithm
Additional Instructions: straight cath as needed per acute urinary retention algorithm for 24 hrs
Additional Instructions: for bladder scan greater than 400 mL
Vital Signs As Directed
Frequency: Per unit guidelines
Weight As Directed
Frequency: Daily
Cpap [RESP] Routine
Patient to use own unit?: No
Set Pressure (cm H2O): 8
Ot Eval And Treat Routine
Pt Eval And Treat Routine
Activity Level: Out of Bed-Early Mobility
01/30/25 20:00
Apixaban [Eliquis] 2.5 mg PO BID
Metoprolol Xl [Toprol Xl] 25 mg PO BID
Thiamine Injection 200 mg IV Q12
01/30/25 22:00
Phenobarbital Sodium [Phenobarbital] 97.5 mg IV TID
01/31/25 06:00
Complete Blood Count/No Diff IN AM
Comprehensive Metabolic Panel IN AM
GGTP IN AM
Glycohemoglobin (HgbA1c) IN AM
Magnesium IN AM
Phosphorus IN AM
01/31/25 07:30
Insulin Aspart Corrective Low [Novolog Flexpen-Low Resistance] See Protocol SC AC
01/31/25 08:00
Aspirin Chewable [Low Strength Aspirin] 81 mg PO DAILY
Cholecalciferol (Vitamin D3) [VITAMIN D3 (cholecalciferol)] 25 mcg PO DAILY
Cyanocobalamin [Vitamin B-12] 100 mcg PO DAILY
Escitalopram Oxalate [Lexapro] 10 mg PO DAILY
FOLic ACID [Folvite] 1 mg PO DAILY
Ferrous Sulfate [Feosol] 325 mg PO DAILY
Pantoprazole [Protonix] 40 mg PO DAILY
Potassium Chloride [KCl] 20 meq PO DAILY
02/01/25 22:00
Phenobarbital [Luminal] 64.8 mg PO TID
02/02/25 11:00
DC Protocol for Telemetry ONCE
02/02/25 20:00
Thiamine HCl [Vitamin B1] 100 mg PO BID
02/03/25 22:00
Phenobarbital [Luminal] 32.4 mg PO TID
Abnormal Lab Results
01/30/25
15:29
RBC 3.57 L 10^6/uL
(4.70-6.10)
Hgb 12.4 L g/dL
(13.0-18.0)
Hct 35.8 L %
(39.0-52.0)
MCV 100.3 H fL
(80.0-94.0)
MCH 34.7 H pg
(27.0-31.0)
Absolute Neuts (auto) 7.2 H 10^3/uL
(1.4-6.5)
Absolute Lymphs (auto) 0.7 L 10^3/uL
(1.2-3.4)
Absolute Monos (auto) 1.1 H 10^3/uL
(0.1-0.6)
Neutrophils % 78.4 H %
(42.2-75.2)
Lymphocytes % 7.3 L %
(20.5-51.1)
Monocytes % 12.2 H %
(1.7-9.3)
Potassium 3.3 L mmol/L
(3.5-5.1)
BUN 56 H mg/dl
(9-20)
Creatinine 3.8 H mg/dL
(0.7-1.3)
Magnesium 2.7 H mg/dl
(1.6-2.3)
AST 109 H U/L
(17-59)
ALT 61 H U/L
(0-50)
Lipase 313 H U/L
(23-300)
Folate > 20.0 H ng/ml
(2.76-20)
01/30/25 15:29
01/30/25 15:29
Vital Signs
Initial and Last Documented VS:
Initial Vital Signs
Temp Pulse Resp BP Pulse Ox
97.8 F 62 16 118/59 96
01/30/25 13:29 01/30/25 13:29 01/30/25 13:29 01/30/25 13:29 01/30/25 13:29
Last Documented Vital Signs
Temp Pulse Resp BP Pulse Ox
97.8 F 86 18 116/40 98
01/30/25 13:29 01/30/25 19:15 01/30/25 18:45 01/30/25 19:10 01/30/25 19:15
<Priscilla Welsh, - Last Filed: 01/30/25 19:52>
Orders/Labs/Results
Orders:
Orders
01/30/25 13:31
Electrocardiogram (*1) Urgent
Reason for Study: Other
Other Reason for Exam: alcohol withdrawl
01/30/25 13:32
EKG- Treatment ONCE
01/30/25 Dinner
2000 calorie (17 carb) Diabetic
01/30/25 15:29
Alcohol Urgent
Complete Blood Count/With Diff Urgent
Comprehensive Metabolic Panel Urgent
Folate Urgent
Comment: ADD ON
Lipase Urgent
Magnesium Urgent
Vitamin B12 Urgent
Comment: ADD ON
01/30/25 15:49
Add On- LAB Urgent
Tests Added?: alcohol, lipase
Urinalysis Reflex To Culture Urgent
0.9% Sodium Chloride 1000 ml [Nss] 1,000 ml IV BOLUS
01/30/25 16:30
Bladder Scan- Treatment ONCE
01/30/25 17:05
Admit/Transfer Patient As Directed
Co-Sign Provider:
Level of Care: Inpatient admission
Assign to:: Telemetry
Physician / Group: Htay
Diagnosis: CRISPIN
Reason for Telemetry: Arrhythmia
Date to Stop Telemetry: 02/02/25
Time to Stop Telemetry: 11:00
Reason for Hospitalization: IVFs, Alcohol Withdrawal
Expected length of stay greater than two midnights?: Yes
ELOS- Estimated Length of Stay in days: 3
I certify the patient meets the requirements for IP care: Yes
01/30/25 17:06
PRN Pain Medication Management As Directed
May give lesser potent ordered pain med per pt: Yes
preference::
Protocol:: Medication orders for pain may be administered in a
manner that supports deferring to patient preference
when the pt is:
- Requesting an ordered lesser potent pain medication.
Least to most potent pain medications are defined
as: acetaminophen < NSAID < tramadol < opioids
(morphine, oxycodone, hydromorphone).
- Requesting a lesser dose of the same medication IF
ORDERED.
- Requesting a less intrusive route of administration
if both routes are prescribed by the provider (PO <
IV).
01/30/25 17:09
Code Status As Directed
Resuscitation Status: Full Code
01/30/25 17:25
Add On- LAB Routine
Tests Added?: vitamin b12, folic acid
Potassium Chloride 10% Elixir [KCl Elixir] 40 meq PO NOW STA
01/30/25 19:47
0.9% Sodium Chloride 1000 ml [Nss] 1,000 ml IV 80 mls/hr
0.9% Sodium Chloride [Nss (Preservative Free)] See Protocol IV PRN PRN
Acetaminophen [Tylenol] 650 mg PO Q4HPRN PRN
Dextrose 50%-Water [Dextrose 50% Syringe] 12.5 grams IV [id number] PRN
FOLic ACID [Folvite] 1 mg 0.9% Sodium Chloride 50 ml [Nss] 50 ml IV DAILYPRN
Glucagon [GlucaGen] 1 mg IM PRN PRN
Lorazepam [Ativan] 1 mg IV Q1HPRN PRN
Lorazepam [Ativan] 1 mg PO Q2HPRN PRN
Lorazepam [Ativan] 2 mg IV Q1HPRN PRN
Rosuvastatin Calcium [Crestor] 20 mg PO QPM
01/30/25 19:47
Case Management Consult Once
Case Management Consult: Other
Comment: Substance abuse counseling
DIETARY IP CONSULT Routine
Reason for Consult: Nutrition support, possible refeeding guidelines
Activity As Directed
Activity Level: Out of Bed-Early Mobility
With Assistance
Bedside Glucose Monitoring As Directed
Frequency: AC&HS
Additional Instructions:: Change to q6h if pt on TPN, tube feeding or not eating
Bladder Scan As Directed
Follow Bladder Retention/Intermittent Cath Algorithm?: Yes
PRN if no void in __ hours: 6
Frequency: Per Retention Algorithm
If Bladder Scan Result >: 400
then:: Straight cath
I&O [Intake/ Output] As Directed
Frequency: q12h
MSAS SCORE As Directed
MSAS Score 0-4: Repeat MSAS every 2 hours until 0-4 for three consecutive assessments, then every 4 hours x 48
hours.
MSAS Score 5-7: For MILD withdrawl symptoms. Repeat MSAS and RASS every 2 hours
MSAS Score 8-11: For MODERATE withdrawal symptoms. Repeat MSAS and RASS every 1 hour. Consider ICU or IMU
level of care.
MSAS Score > 11: For SEVERE withdrawal symptoms. Repeat MSAS and RASS every 1 hour. Notify provider, consider
ICU level of care.
MSAS Additional Instructions: If no improvement or no decrease in score from severe to moderate within 12
hours, consult psychiatry
MSAS Notify Provider: Notify provider if patient requires more than 10 mg of Lorazepam in eight hour period.
Straight Cath As Directed
Frequency: Per Retention Algorithm
Additional Instructions: straight cath as needed per acute urinary retention algorithm for 24 hrs
Additional Instructions: for bladder scan greater than 400 mL
Vital Signs As Directed
Frequency: Per unit guidelines
Weight As Directed
Frequency: Daily
Cpap [RESP] Routine
Patient to use own unit?: No
Set Pressure (cm H2O): 8
Ot Eval And Treat Routine
Pt Eval And Treat Routine
Activity Level: Out of Bed-Early Mobility
01/30/25 20:00
Apixaban [Eliquis] 2.5 mg PO BID
Metoprolol Xl [Toprol Xl] 25 mg PO BID
Thiamine Injection 200 mg IV Q12
01/30/25 22:00
Phenobarbital Sodium [Phenobarbital] 97.5 mg IV TID
01/31/25 06:00
Complete Blood Count/No Diff IN AM
Comprehensive Metabolic Panel IN AM
GGTP IN AM
Glycohemoglobin (HgbA1c) IN AM
Magnesium IN AM
Phosphorus IN AM
01/31/25 07:30
Insulin Aspart Corrective Low [Novolog Flexpen-Low Resistance] See Protocol SC AC
01/31/25 08:00
Aspirin Chewable [Low Strength Aspirin] 81 mg PO DAILY
Cholecalciferol (Vitamin D3) [VITAMIN D3 (cholecalciferol)] 25 mcg PO DAILY
Cyanocobalamin [Vitamin B-12] 100 mcg PO DAILY
Escitalopram Oxalate [Lexapro] 10 mg PO DAILY
FOLic ACID [Folvite] 1 mg PO DAILY
Ferrous Sulfate [Feosol] 325 mg PO DAILY
Pantoprazole [Protonix] 40 mg PO DAILY
Potassium Chloride [KCl] 20 meq PO DAILY
02/01/25 22:00
Phenobarbital [Luminal] 64.8 mg PO TID
02/02/25 11:00
DC Protocol for Telemetry ONCE
02/02/25 20:00
Thiamine HCl [Vitamin B1] 100 mg PO BID
02/03/25 22:00
Phenobarbital [Luminal] 32.4 mg PO TID
Abnormal Lab Results
01/30/25
15:29
RBC 3.57 L 10^6/uL
(4.70-6.10)
Hgb 12.4 L g/dL
(13.0-18.0)
Hct 35.8 L %
(39.0-52.0)
MCV 100.3 H fL
(80.0-94.0)
MCH 34.7 H pg
(27.0-31.0)
Absolute Neuts (auto) 7.2 H 10^3/uL
(1.4-6.5)
Absolute Lymphs (auto) 0.7 L 10^3/uL
(1.2-3.4)
Absolute Monos (auto) 1.1 H 10^3/uL
(0.1-0.6)
Neutrophils % 78.4 H %
(42.2-75.2)
Lymphocytes % 7.3 L %
(20.5-51.1)
Monocytes % 12.2 H %
(1.7-9.3)
Potassium 3.3 L mmol/L
(3.5-5.1)
BUN 56 H mg/dl
(9-20)
Creatinine 3.8 H mg/dL
(0.7-1.3)
Magnesium 2.7 H mg/dl
(1.6-2.3)
AST 109 H U/L
(17-59)
ALT 61 H U/L
(0-50)
Lipase 313 H U/L
(23-300)
Folate > 20.0 H ng/ml
(2.76-20)
01/30/25 15:29
01/30/25 15:29
Vital Signs
Initial and Last Documented VS:
Initial Vital Signs
Temp Pulse Resp BP Pulse Ox
97.8 F 62 16 118/59 96
01/30/25 13:29 01/30/25 13:29 01/30/25 13:29 01/30/25 13:29 01/30/25 13:29
Last Documented Vital Signs
Temp Pulse Resp BP Pulse Ox
97.8 F 86 18 116/40 98
01/30/25 13:29 01/30/25 19:15 01/30/25 18:45 01/30/25 19:10 01/30/25 19:15
<Juana Pearson NP - Last Filed: 01/30/25 19:38>
*Pulse Oximetry
SaO2: 99
Oxygen Mode of Delivery: Room air
Patient hypoxic: no
*Critical Care Note
Total Time (30-74mins, 75-104mins- exclusive of procedures): Not Applicable
<Juana Pearson DIRECTOR OF SOFTWARE DEVELOPMENT - Last Filed: 01/30/25 19:38>
Update Note
Update Note:
Patient to the emergency department from home with complaint of weakness, anorexia. He states that he has been increasing his alcohol intake to control the pain in bilateral lower extremities from his peripheral neuropathy. States he takes his
gabapentin regularly but this has been no help to him. He reports with the increase alcohol intake he has not been eating or drinking. He reports loss of appetite. There is no abdominal pain on exam. There is no abdominal distention. He admits
to drinking a pint of vodka this morning. He admits to daily alcohol intake. Vital signs on arrival are stable, he remains afebrile. Labs reviewed WBC 9.2 HGB/HCT stable at 12.4/35.8. K3.3, BUN 56 creatinine 3.8. This is an acute change in his
BUN and creat. Mild elevation of AST and ALT at 109/61. Case discussed with Dr. Welsh. Will be admitting to the hospitalist for CRISPIN.
ED Attending Note
<Juana Pearson DIRECTOR OF SOFTWARE DEVELOPMENT - Last Filed: 01/30/25 19:38>
-
Portions of this chart may have been created with voice recognition software.� Occasional wrong word or��sound alike� substitutions may have occurred due to the inherent limitations of voice recognition software.
<Priscilla Welsh DO - Last Filed: 01/30/25 19:52>
ED Attending Note
Patient seen and examined by attending physician: Yes
I performed the substantive portion of visit, reviewed & personally made and approve the management plan that is documented in note by myself or JENS.: Yes
I performed a history and physical exam of patient and discussed management with resident, I reviewed resident's note and agree with documented findings and plan of care.: Yes
ED Attending Note:
85-year-old male presents the ER for further treatment of alcohol withdrawal symptoms. Patient states that he has been having severe pain in his bilateral lower extremities related to his known neuropathy, which has not improved despite his
attempts to medicate self with at least 1 L of vodka a day. No fevers or chills. He reports otherwise feeling well. Vital signs reviewed, patient awake, alert, obese, ruborous complexion, mucous membranes moist, diffusely tremulous, heart regular
rate and rhythm with 2 out of 6 stock ejection murmur heard best at the right sternal border, lungs are clear to auscultation without wheezes rales or rhonchi, 2+ DP pulses present symmetric bilateral feet. I reviewed all test results with nurse
practitioner. Given patient's personal history of alcohol withdrawal seizures, he is admitted to the hospitalist for further care.
Discharge Plan
Departure
Patient Disposition: Admit
Date of Disposition: 01/30/25
Time of Disposition: 16:31
Presentation/result/management discussed w/ accepting MD/DO: Hospitalist
Patient with high blood pressure during this ER visit?: No
Condition: Fair
Covid-19: Not Applicable
Discharge Problem:
CRISPIN (acute kidney injury), Chronic alcohol abuse
Interventions
Interventions:
*Risk Screen - Suicide Last Done: 01/30/25 13:15
*General Assessment Last Done: 01/30/25 15:34
*Neglect/Abuse Screening Last Done: 01/30/25 15:34
*ED COVID-19 Vaccine History Last Done: 01/30/25 15:34
*ED Influenza Vaccine History Last Done: 01/30/25 15:34
[facility] Fall Risk Assessment Tool Last Done: 01/30/25 15:32
*Nursing Disposition Last Done: 01/30/25 19:47
ED- Neurological Assessment Last Done: 01/30/25 15:36
ED-Psychological Assessment Last Done: 01/30/25 15:36
Discharge Date and Time
Discharge Date/Time: 01/30/25 19:48
--- NOTE | 2025-01-30 16:49 | HPS.HSE ---
Family Physician
-
Family Physician:
Chief Complaint
-
Weakness and Alcohol Addiction
History of Present Illness
Patient is an 85 y/o male past medical history of ASCVD, CHF, paroxysmal atrial fibrillation, hypertension, diabetes, CKD, hypothyroidism and BPH who presents with weakness and concern for alcohol addiction. Patient reports he has been drinking up
to a quart of vodka a day due to persistent peripheral neuropathy pain in his legs. Over the few days he has developed worsening appetite associated with nausea. He denies any abdominal pain or vomiting.
Medical History
Past Medical History
Past Medical History: Reports Other
Additional Past Medical History:
ASCVD
Chronic HFpEF
Aortic stenosis
Paroxysmal atrial fibrillation
Complete heart block with permanent pacemaker
Hypertension
Dyslipidemia
Diabetes mellitus type 2
CKD Stage IIIB
Hypothyroidism
BPH
Lumbar DDD
Spinal stenosis
Sleep apnea
Obesity
Colon Cancer
Past Surgical History: Reports Other
Additional Past Surgical History:
Partial Colectomy
Lumbar Laminectomy
PTCA with Stent
PPM Placement
Left Shoulder Surgery
Left Eye Surgery
Social History
Tobacco: Non-smoker
Alcohol: None
Drug: None
Family History
Family History: Not pertinent
Allergies / Home Medications
Allergies reflects when Allergies were last updated in [employer].
Home Medications with original date entered in [employer]
Allergy/Medication List:
Allergies
Allergy/AdvReac Type Severity Reaction Status Date / Time
methimazole Allergy serum Verified 01/30/25 13:32
sickness
oxycodone HCl (From Percocet) Allergy hyperactivi Verified 01/30/25 13:32
ty
Sulfa (Sulfonamide Allergy serum Verified 01/30/25 13:32
Antibiotics) sickness
trimethoprim Allergy Unknown Verified 01/30/25 13:32
Home Medications
escitalopram oxalate 10 mg tablet 10 mg PO DAILY Mental Health/Anxiety 06/19/17
aspirin 81 mg chewable tablet 81 mg PO DAILY Blood clot prevention/tx 03/18/21
rosuvastatin 20 mg tablet 20 mg PO QPM #90 tabs 03/19/21
ferrous sulfate 325 mg (65 mg iron) tablet (FeroSul) 325 mg PO DAILY #30 tabs 03/09/22
apixaban 2.5 mg tablet (Eliquis) 2.5 mg PO BID Blood Clot Prevention/Tx 01/11/23
pantoprazole 40 mg tablet,delayed release 40 mg PO DAILY Gastrointestinal Issue 01/11/23
metoprolol succinate 25 mg tablet,extended release 24 hr 25 mg PO BID Heart Failure 01/12/23
cholecalciferol (vitamin D3) 25 mcg (1,000 unit) capsule (Vitamin D3) 25 mcg PO DAILY 05/27/24
cyanocobalamin (vitamin B-12) 100 mcg tablet (Vitamin B-12) 100 mcg PO DAILY 05/27/24
ipratropium bromide 42 mcg (0.06 %) nasal spray 2 spray intranasal BID 05/27/24
lisinopril 5 mg tablet 5 mg PO DAILY 05/27/24
furosemide 20 mg tablet (Lasix) 20 mg PO BID #60 tabs 10/28/24
hydrocortisone acetate 25 mg rectal suppository (Anusol-HC) 25 mg TX BID #12 ea 01/24/25
therapeutic multivitamin 1 tab PO DAILY 01/24/25
potassium chloride 20 mEq tablet,extended release 20 meq PO DAILY Electrolyte Repletion 01/30/25
Review of Systems
-
History Source: Patient
A 12 point ROS was completed and negative except as noted: Yes
Constitutional: Denies Fever or Chills
Respiratory: Denies Cough or Trouble Breathing
Cardiac: Denies Chest Pain or Palpitations
Abdomen/GI: Reports See HPI
Physical Exam
Vital Signs
Vital Signs
Temp Pulse Resp BP Pulse Ox
97.8 F 60 16 120/55 99
01/30/25 13:29 01/30/25 16:00 01/30/25 16:04 01/30/25 16:00 01/30/25 16:04
Physical Exam
General: Well Developed, Well Nourished and No Apparent Distress
HEENT: NormoCephalic, Anicteric, Moist mucous membranes and Atraumatic
Respiratory: Clear and Non Labored Respirations; No Wheezes, Rales or Rhonchi
Cardiac: S1/S2, Regular Rhythm and Murmur (III/ BRENDAN)
GI: Soft, Non Tender and Non Distended
Rectal: Deferred by Provider
Musculoskeletal: No Clubbing, No Cyanosis and Other (Trace edema bilateral lower extremities)
Skin: Warm and Dry; No Rash
Neuro: Awake, Alert, Oriented and Nonfocal/grossly intact
Psych: Calm
Laboratory Results
-
01/30/25 15:29
01/30/25 15:29
Laboratory Results
Total Bilirubin 0.8 mg/dl (0.2-1.3) 01/30/25 15:29
AST 109 U/L (17-59) H 01/30/25 15:29
ALT 61 U/L (0-50) H 01/30/25 15:29
Alkaline Phosphatase 101 U/L (38-126) 01/30/25 15:29
Lipase 313 U/L (23-300) H 01/30/25 15:29
Data Reviewed
-
Lab Data: Labs Reviewed by me
Old Records: Reviewed
Impression/Plan
-
Acute Kidney Injury on CKD IIIB, suspect related to poor oral intake associated with diuretics and ACEI
-Hold Lasix and Lisinopril
-Continue IVFs
-Monitor bladder
-Recheck labs in AM
-Consider nephrology consult if creatinine is not improving, patient known to Dr. Kaur
Alcohol Use Disorder, with risk for alcohol withdrawal
-Start phenobarbital taper
-Continue lorazepam PRN
-Add thiamine and folic acid
Hypokalemia secondary to diuretics and alcohol
-Replace potassium
-Recheck in AM
Macrocytosis
-Check vitamin b12 and folic acid levels - May also be contributing to significant peripheral neuropathy
ASCVD
-Continue aspirin
-Continue rosuvastatin
Chronic HFpEF / Aortic Stenosis
-Diuretics on hold
-Monitor daily weights
Paroxysmal Atrial Fibrillation / Complete Heart Block s/p PPM
-Continue Eliquis for anticoagulation
Essential Hypertension
-Hold lisinopril
-Continue metoprolol
Diabetes Mellitus, Type 2
-check HgbA1c
-Monitor sugars and Continue coverage insulin
Sleep Apnea
-Continue CPAP
DVT proph: Eliquis
Code Status: Full Code
--- NOTE | 2025-01-30 17:40 | W.PN.UPDATE ---
Update Note
Progress Note Update
This note serves as an addendum to the H&P by voice over artist Ilia HART
HPI
85M with Obesity
PMHX: ASCVD, Chr HFrHF, LVEF 35 %, paroxysmal atrial fibrillation,Complete heart block, PPM, hypertension, DMT2 , CKD3b, hypothyroidism and BPH seen at ER:
- eval for weakness and concern for ETOH use disorder
- has been drinking up to a quart of vodka daily due to persistent peripheral neuropathy pain in his legs.
- worsening appetite associated with nausea.
- denies any abdominal pain or vomiting.
PHX; see above
Relevant VS
Temp Pulse Resp BP Pulse Ox
97.8 F 60 16 120/55 99
01/30/25 13:29 01/30/25 16:00 01/30/25 16:04 01/30/25 16:00 01/30/25 16:04
PE
Gen: NAD
HEENT:anicteric
Neck: supple
Lungs: CTA
Cor:RRR S1 S2 , POS murmur
Abdomen:�soft NT NG NRT
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
MS:Trace edema bilateral lower extremities
Psych:Calm
Relevant data�
01/24/25 01/30/25
11:03 15:29
WBC 9.2
Hgb 12.7 L 12.4 L
Plt Count 144
INR 1.49
11/02/24 01/24/25 01/30/25
11:30 11:03 15:29
Potassium 3.3 L
BUN 31 H 42 H 56 H
Creatinine 1.9 H 2.0 H 3.8 H
eGFR 34.57 32.30 14.95
TTE
Normal left ventricular chamber size with mild concentric left ventricular hypertrophy.
Visually left ventricular ejection fraction 35 to 40%.
Moderately depressed. Akinesis of the mid to apical septal and anterior quispe.
Diastolic function indeterminant.
Normal right ventricular size and function. Pacer wire seen in right ventricle.
Thickened mitral valve leaflets with mitral annular calcification.
Moderate mitral regurgitation.
Moderate to severe aortic stenosis with peak/mean gradients across the aortic valve of 61/35 mmHg, respectively. The aortic valve by the Continuity equation
Tricuspid valve opens normally with mild tricuspid regurgitation. Estimated pulmonary artery pressure of 53 mmHg assuming a right atrial pressure of 3 mmHg.
Compared to prior study 11/25/2023 ejection fraction appears to be more depressed and more likely 35 to 40%.
Last hospitalist admission: 10/26/24 - 10/28/24
PDX: CRISPIN due to diuretic use and TONG inhibitor side effect.
ASSESSMENT & PLAN
CRISPIN due to poor PO intake + diuretics and ACEI
Known CKD3b
Known to Dr. Ravi Kaur
- Hold both Lasix and Lisinopril and observe Cr
- Monitor bladder
- BMP in AM
- Consider nephrology consult if creatinine is not improving
Hypokalemia ue to diuretics and alcohol
-Replace potassium
Chronic HFrEF; stable
Suspect NICM ? ETOH related
HX Aortic Stenosis
- Diuretics and ACEI on hold due to CRISPIN
- daily weights
Severe ETOH Use Disorder
At risk for alcohol withdrawal
Worsening chronic tremors in outstretched hand
Asso. macrocytosis
- agree with PHB taper
- lorazepam PRN
- Add thiamine and folic acid
- check B12 and FA levels
Suspect peripheral neuropathy suspect Diabetic plus ETOH related
ASCVD
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
- MOBILE DEVICE ENGINEER rosuvastatin
Paroxysmal AF
PPM implant for HX CHB
- c/w Eliquis
Essential HTN
- Hold lisinopril due to CRISPIN
- c/w metoprolol
JOSE on CPAP HS
DVT Px: chr Eliquis
Code: Full code
IP TLM
[2025-01-30] MEDS: KCL ELIXIR 40 MEQ PO (17:42)
[2025-01-30 19:25] LABS: Folate > 20.0 ng/ml (2.76-20); Vitamin B12 420 pg/ml (239-931)
--- NOTE | 2025-01-30 19:46 | PTCARENOTE ---
Patient received from ED via stretcher. Patient AAOx3, vital signs were stable, and no complaints of pain. While assessing this RN noticed both of patients toes were a dusky blue and cold. This RN was able to get a doppler pulse on both feet. CUSTOMER CARE REPRESENTATIVE was
notified. Patient oriented to room and call guo within reach.
[2025-01-30] MEDS: ELIQUIS 2.5 MG PO (21:09)
[2025-01-30] MEDS: THIAMINE INJECTION 200 MG IV (21:09)
[2025-01-30] MEDS: PHENOBARBITAL 97.5 MG IV (21:09)
[2025-01-30] MEDS: CRESTOR 20 MG PO (21:10)
[2025-01-30] MEDS: TOPROL XL 25 MG PO (21:10)
[2025-01-30 21:59] LABS: Glucose - Point of Care 109 mg/dl (70-99)
[2025-01-31] VITALS (8 sets, daily range): BP systolic 113–141; BP diastolic 56–69; PULSE 59–91; O2SAT 97; BMI 35.4
--- NOTE | 2025-01-31 07:35 | W.PN.HOSP.TC ---
Addendum entered and electronically signed by Truong Jensen, 01/31/25 12:36:
#Cardiac murmur. Suspect severe aortic stenosis with 'whooping quality' and reduced carotid pulse on exam. Will check TTE to further assess
#Thrombocytopenia. Mild, previous labs WNL. With a significant alcohol history will check RUQ ultrasound to assess for signs of cirrhosis and portal hypertension. Continue to trend CBC
Original Note:
Today's Communication/Plan
-
gabapentin 100 mg 3 times daily dose,
Check vitamin B12
vitamin b6
tsh,
Assessment / Plan
Assessment / Plan
85-year-old male with past medical history of ASCVD, congestive heart failure, paroxysmal atrial fibrillation, hypertension, diabetes, chronic kidney disease, hypothyroidism and benign prostatic hyperplasia presented with weakness, persistent
peripheral neuropathy pain in his legs, loss of appetite associated with nausea and concern for alcohol addiction.
Vitals: BP 136/56, ND 61, temp 98.2, saturation 99, RR 16
On examination: Worsening resting tremor, pansystolic murmur at aortic and pulmonic area, pitting pedal edema 1+,
Lab: WBC 6.8, hemoglobin 12.4--10.7, platelet 111 low, blood glucose 114 high, HbA1c pending,
Magnesium 2.7 high--2.3
Lipase 313 high, folate>20 high, Alcohol 109 detected
COVID, flu negative
EKG 01/30: HR 60 bpm, QTc 536 ms, QRS 228, atrial flutter and ventricular paced rhythm.
On 01/30 USG kidney:
Bilateral kidney cysts. No evidence for pelvicalyceal dilation.
No significant focal abnormality of the urinary bladder. Patient was unable to spontaneously void, and postvoid bladder residual could not be assessed. Ureteral jets are not visualized.
# Chronic heart failure with reduced ejection fraction:
TTE
Normal left ventricular chamber size with mild concentric left ventricular hypertrophy.
Visually left ventricular ejection fraction 35 to 40%.
Moderately depressed. Akinesis of the mid to apical septal and anterior quispe.
Diastolic function indeterminant.
Normal right ventricular size and function. Pacer wire seen in right ventricle.
Thickened mitral valve leaflets with mitral annular calcification.
Moderate mitral regurgitation.
Moderate to severe aortic stenosis with peak/mean gradients across the aortic valve of 61/35 mmHg, respectively. The aortic valve by the Continuity equation
Tricuspid valve opens normally with mild tricuspid regurgitation. Estimated pulmonary artery pressure of 53 mmHg assuming a right atrial pressure of 3 mmHg.
Compared to prior study 11/25/2023 ejection fraction appears to be more depressed and more likely 35 to 40%.
Monitor weight, I's/O,
# Acute kidney injury due to poor oral intake along with diuretics furosemide 20 mL/TONG inhibitor lisinopril 5 mg usage:
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
Continue with IV fluids
Monitor bladder for urine output
Hold nephrotoxic medications includes Lasix, lisinopril and observe creatinine.
Current creatinine is 3.8
Nephrology consult
# Hypokalemia secondary to alcohol
Potassium replenished with 40 mill equivalents oral
# Severe ethanol use disorder:
Thiamine infusion
At risk for alcohol withdrawal follow MSAS protocol
Worsening chronic tremor.
Lorazepam as needed
Add thiamine and folic acid
#ASCVD
- GROUNDS AND NURSERY SPECIALIST aspirin
- GROUNDS AND NURSERY SPECIALIST rosuvastatin
#Paroxysmal AF
PPM implant for HX CHB
- c/w Eliquis
#Essential HTN
- Hold lisinopril due to CRISPIN
- c/w metoprolol
JOSE on CPAP HS
DVT Px: chr Eliquis
Code: Full code
Dispo: Home
Anticipated Discharge: > 48 hours
Subjective/Interval History
-
Date of Service: January 31, 2025
85-year-old male with past medical history of ASCVD, congestive heart failure, paroxysmal atrial fibrillation, hypertension, diabetes, chronic kidney disease, hypothyroidism and benign prostatic hyperplasia presented with weakness, persistent
peripheral neuropathy pain in his legs, loss of appetite associated with nausea and concern for alcohol addiction. He used to take vodka every day for 1 year. He was previously admitted at rehab for his addiction. He is not taking recreational
drugs. He denied abdominal pain, vomiting, chest pain, palpitation, dizziness, oliguria, dysuria.
Overnight his potassium dropped to 3.3 and administered 40 mill equal of oral potassium chloride.
Objective Data
-
Labs:
Laboratory Results
01/31/25
07:04
WBC Pending
Hgb Pending
Hct Pending
Plt Count Pending
Sodium Pending
Potassium Pending
Chloride Pending
Carbon Dioxide Pending
BUN Pending
Creatinine Pending
Glucose Pending
Calcium Pending
Total Bilirubin Pending
AST Pending
ALT Pending
Alkaline Phosphatase Pending
Vital Signs:
Vital Signs
Temp Pulse Resp BP Pulse Ox
98.1 F 63 18 138/61 95
01/31/25 04:00 01/31/25 04:00 01/31/25 04:00 01/31/25 04:00 01/31/25 04:00
I&O
01/30/25 01/31/25 02/01/25
06:59 06:59 06:59
Intake Total 3106 / 3106
Balance 3106 / 3106
Review of Systems
-
History Source: Patient
All other systems: Reviewed and negative
Physical Exam
-
General: Well Developed
Respiratory: Clear to Auscultation
Cardiac: Murmur (Systolic on aortic area)
GI: Soft, Nontender and Nondistended
Genito-urinary: No Costovertebral Tender
Musculoskeletal: No Clubbing, No Cyanosis and No Edema
Neuro: AO x 3
Hematologic / Lymphatic: No Lymphadenopathy
Psych: Calm
[2025-01-31 08:07] LABS: ALT (SGPT) 44 U/L (0-50); AST (SGOT) 73 U/L (17-59); Albumin 3.4 g/dl (3.5-5.0); Alkaline Phosphatase 82 U/L (38-126); Blood Urea Nitrogen 52 mg/dl (9-20); Calcium 8.7 mg/dl (8.4-10.2); Carbon Dioxide 24 mmol/L (22-30); Chloride 106 mmol/L (98-107); Estimated Creatinine Clearance 18 ml/min; GGTP 85 U/L (15-73); Glucose 120 mg/dl (70-99); Magnesium 2.3 mg/dl (1.6-2.3); Potassium 3.6 mmol/L (3.5-5.1); Sodium 137 mmol/L (135-145); Total Protein 6.2 g/dl (6.3-8.2); eGFR 17.71
[2025-01-31 08:14] LABS: Glucose - Point of Care 114 mg/dl (70-99)
[2025-01-31 08:22] LABS: Hematocrit 31.9 % (39.0-52.0); Hemoglobin 10.7 g/dL (13.0-18.0); Mean Corp Hgb Conc. 33.5 g/dL (33.0-37.0); Mean Corpuscular Volume 104.6 fL (80.0-94.0); Platelet Count 111 10^3/uL (130-400); Red Cell Dist. Width 12.8 % (11.5-14.5)
[2025-01-31] MEDS: NOVOLOG FLEXPEN-LOW RESISTANCE SC ×3 (08:38→17:37)
[2025-01-31] MEDS: LOW STRENGTH ASPIRIN 81 MG PO (08:39)
[2025-01-31] MEDS: FEOSOL 325 MG PO (08:39)
[2025-01-31] MEDS: VITAMIN D3 (cholecalciferol) 25 MCG PO (08:39)
[2025-01-31] MEDS: TOPROL XL 25 MG PO ×2 (08:39→19:48)
[2025-01-31] MEDS: PROTONIX 40 MG PO (08:39)
[2025-01-31] MEDS: KCL 20 MEQ PO (08:39)
[2025-01-31] MEDS: FOLVITE 1 MG PO (08:39)
[2025-01-31] MEDS: ELIQUIS 2.5 MG PO ×2 (08:40→19:48)
[2025-01-31] MEDS: VITAMIN B-12 100 MCG PO (08:40)
[2025-01-31] MEDS: LEXAPRO 10 MG PO (08:40)
[2025-01-31] MEDS: PHENOBARBITAL 97.5 MG IV ×3 (08:48→21:29)
[2025-01-31] MEDS: THIAMINE INJECTION 200 MG IV ×2 (08:49→19:47)
[2025-01-31] MEDS: NSS 1000 IV (09:02)
[2025-01-31 11:23] LABS: Urine Character Clear (Clear)
[2025-01-31 11:24] LABS: Glycohemoglobin (HgbA1c) 6.2 % (4.0-5.9)
[2025-01-31 11:30] LABS: Urine Squamous Cell 0-2 /LPF (Few)
[2025-01-31 11:31] LABS: Urine Red Blood Cell 16-20 /HPF (0-2)
[2025-01-31 11:42] LABS: Glucose - Point of Care 154 mg/dl (70-99)
[2025-01-31 16:55] LABS: TSH 1.37 uIU/ml (0.47-4.68)
[2025-01-31] MEDS: NEURONTIN 100 MG PO ×2 (17:26→21:30)
[2025-01-31] MEDS: CRESTOR 20 MG PO (17:26)
[2025-01-31 17:29] LABS: Glucose - Point of Care 111 mg/dl (70-99)
[2025-01-31] MEDS: CYANOCOBALAMIN 1000 MCG IM (18:05)
[2025-01-31 21:07] LABS: Glucose - Point of Care 123 mg/dl (70-99)
[2025-02-01] MEDS: NSS 1000 IV ×2 (01:05→12:10)
[2025-02-01 03:08] VITALS: BP 152/74
[2025-02-01 06:10] VITALS: BMI 35.6
--- NOTE | 2025-02-01 07:15 | W.PN.HOSP.TC ---
Today's Communication/Plan
-
PT OT evaluate
Follow-up with echo report
Phenobarbital taper dosage
Assessment / Plan
Assessment / Plan
85-year-old male with past medical history of ASCVD, congestive heart failure, paroxysmal atrial fibrillation, hypertension, diabetes, chronic kidney disease, hypothyroidism and benign prostatic hyperplasia presented with weakness, persistent
peripheral neuropathy pain in his legs, loss of appetite associated with nausea and concern for alcohol addiction.
# Chronic heart failure with reduced ejection fraction:
Vitals: 121/69---154/71, AR 69, RR 18, temp 97.7, O2 sat 99
On examination: Pedal edema present, systolic murmur.
WBC 6.8, hemoglobin 10.7--12.1, platelet count 111--99 low, creatinine 3.3--2.9, bun 52--41.
Urine culture no growth
Vitamin B6, vitamin B12 pending, TSH 1.3 normal
Lipase 313 high, folate>20 high, Alcohol 109 detected
COVID, flu negative
EKG 01/30: HR 60 bpm, QTc 536 ms, QRS 228, atrial flutter and ventricular paced rhythm.
On 01/31 abdominal ultrasound finding:
1. MODERATE DIFFUSE HEPATIC STEATOSIS.
2. No sonographic evidence for cholelithiasis or biliary obstruction.
3. Mild to moderate chronic bilateral renal disease.
On 01/30 USG kidney:
Bilateral kidney cysts. No evidence for pelvicalyceal dilation.
No significant focal abnormality of the urinary bladder. Patient was unable to spontaneously void, and postvoid bladder residual could not be assessed. Ureteral jets are not visualized.
On 05/18/24 TTE:
Normal left ventricular chamber size with mild concentric left ventricular hypertrophy.
Visually left ventricular ejection fraction 35 to 40%.
Moderately depressed. Akinesis of the mid to apical septal and anterior quispe.
Diastolic function indeterminant.
Normal right ventricular size and function. Pacer wire seen in right ventricle.
Thickened mitral valve leaflets with mitral annular calcification.
Moderate mitral regurgitation.
Moderate to severe aortic stenosis with peak/mean gradients across the aortic valve of 61/35 mmHg, respectively. The aortic valve by the Continuity equation
Tricuspid valve opens normally with mild tricuspid regurgitation. Estimated pulmonary artery pressure of 53 mmHg assuming a right atrial pressure of 3 mmHg.
Compared to prior study 11/25/2023 ejection fraction appears to be more depressed and more likely 35 to 40%.
Monitor weight, I's/O,
# Acute kidney injury due to poor oral intake along with diuretics furosemide 20 mL/TONG inhibitor lisinopril 5 mg usage:
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
Continue with IV fluids
Monitor bladder for urine output
Hold nephrotoxic medications includes Lasix, lisinopril and observe creatinine.
Current creatinine is 3.8
Nephrology consult
# Hypokalemia secondary to alcohol
Potassium replenished with 40 mill equivalents oral
# Severe ethanol use disorder:
Thiamine infusion
At risk for alcohol withdrawal follow MSAS protocol
Worsening chronic tremor.
Lorazepam as needed
Continue thiamine and folic acid
Currently on phenobarbital taper dosage.
#ASCVD
- PROBATION WORKER aspirin
- PROBATION WORKER rosuvastatin
#Paroxysmal AF
PPM implant for HX CHB
- c/w Eliquis
#Essential HTN
- Hold lisinopril due to CRISPIN
- c/w metoprolol
JOSE on CPAP HS
TTE in future,
# PT, OT consulted
DVT Px: chr Eliquis
Code: Full code
Dispo: Home
Anticipated Discharge: 24 - 48 hours
Subjective/Interval History
-
Date of Service: February 01, 2025
Overnight patient MSAS score 2, tremor present. While on walking patient experienced unsteadiness, which is a new concern after the admission.
He denied dizziness, palpitation, chest pain.
Today the patient received gabapentin 100 mg 3 times a day and had a good sleep without pain.
Objective Data
-
Labs:
Laboratory Results
02/01/25
06:00
WBC Pending
Hgb Pending
Hct Pending
Plt Count Pending
Sodium Pending
Potassium Pending
Chloride Pending
Carbon Dioxide Pending
BUN Pending
Creatinine Pending
Glucose Pending
Calcium Pending
Total Bilirubin Pending
AST Pending
ALT Pending
Alkaline Phosphatase Pending
Vital Signs:
Vital Signs
Temp Pulse Resp BP Pulse Ox
97.5 F 65 18 152/74 96
02/01/25 03:08 02/01/25 03:08 02/01/25 03:08 02/01/25 03:08 02/01/25 03:08
I&O
01/31/25 02/01/25 02/02/25
06:59 06:59 06:59
Intake Total 3106 / 3106 2800 / 2800
Output Total 560 / 560
Balance 3106 / 3106 2240 / 2240
Review of Systems
-
History Source: Patient
All other systems: Reviewed and negative
Physical Exam
-
General: Well Developed
Respiratory: Clear to Auscultation
Cardiac: Regular Rhythm and Murmur (Systolic murmur)
GI: Soft, Nontender and Nondistended
Genito-urinary: No Costovertebral Tender
Musculoskeletal: No Clubbing, No Cyanosis and No Edema
Skin: Warm
Neuro: AO x 3
Hematologic / Lymphatic: No Lymphadenopathy
Psych: Calm
[2025-02-01 07:20] VITALS: BP 154/71
[2025-02-01 07:33] LABS: Glucose - Point of Care 77 mg/dl (70-99)
[2025-02-01] MEDS: FEOSOL 325 MG PO (07:40)
[2025-02-01] MEDS: FOLVITE 1 MG PO (07:40)
[2025-02-01] MEDS: NEURONTIN 100 MG PO ×3 (07:40→21:00)
[2025-02-01] MEDS: PROTONIX 40 MG PO (07:40)
[2025-02-01] MEDS: KCL 20 MEQ PO (07:40)
[2025-02-01] MEDS: LOW STRENGTH ASPIRIN 81 MG PO (07:40)
[2025-02-01] MEDS: VITAMIN D3 (cholecalciferol) 25 MCG PO (07:40)
[2025-02-01] MEDS: VITAMIN B-12 100 MCG PO (07:40)
[2025-02-01] MEDS: ELIQUIS 2.5 MG PO ×2 (07:41→21:00)
[2025-02-01] MEDS: TOPROL XL 25 MG PO ×2 (07:41→21:00)
[2025-02-01] MEDS: LEXAPRO 10 MG PO (07:41)
[2025-02-01] MEDS: THIAMINE INJECTION 200 MG IV ×2 (07:41→21:00)
[2025-02-01] MEDS: PHENOBARBITAL 97.5 MG IV ×2 (07:42→16:45)
[2025-02-01] MEDS: NOVOLOG FLEXPEN-LOW RESISTANCE SC ×2 (07:42→12:13)
--- NOTE | 2025-02-01 08:14 | CARDSERVLU ---
Echocardiogram with [facility] completed after protocol screening completed. Allergies verified.
Patent IV site: ___RAC__
IV site flushed with 0.9% NaCl pre and post administration.
Diluted bolus method utilized to enhance visualization of ventricular quispe.
Total volume given: __5__ mL
Patient tolerated all procedures well without complications.
[2025-02-01 08:51] LABS: Hematocrit 35.9 % (39.0-52.0); Hemoglobin 12.1 g/dL (13.0-18.0); Mean Corp Hgb Conc. 33.7 g/dL (33.0-37.0); Mean Corpuscular Volume 102.0 fL (80.0-94.0); Platelet Count 99 10^3/uL (130-400); Red Cell Dist. Width 12.7 % (11.5-14.5)
[2025-02-01 09:03] LABS: ALT (SGPT) 46 U/L (0-50); AST (SGOT) 66 U/L (17-59); Albumin 3.8 g/dl (3.5-5.0); Alkaline Phosphatase 103 U/L (38-126); Blood Urea Nitrogen 41 mg/dl (9-20); Calcium 9.2 mg/dl (8.4-10.2); Carbon Dioxide 21 mmol/L (22-30); Chloride 106 mmol/L (98-107); Estimated Creatinine Clearance 21 ml/min; Glucose 114 mg/dl (70-99); Potassium 3.7 mmol/L (3.5-5.1); Sodium 137 mmol/L (135-145); Total Protein 6.9 g/dl (6.3-8.2); eGFR 20.68
--- NOTE | 2025-02-01 11:20 | CM ---
Addendum entered by Sanaz Serra 02/01/25 13:00:
[facility] provided, AA lists and times provided. [facility] liaison will follow up with patient weekly and again iin am.
Original Note:
Patient seen bedside.
IA completed.
Patient lives alone 2 story home, drives.
patient stated he ambulates with a cane, currently using a RW in the hospital.
Son will transport home.
Discussed ETOH sensation with patient and he is interested in speaking with [facility].
TC to [place] from [facility] he will see patient today.
PCP Dr Mariano
Pharmacy: [facility]
Plan: home with ETOH resources.
[2025-02-01 11:31] VITALS: BP 147/63
[2025-02-01 12:01] LABS: Glucose - Point of Care 133 mg/dl (70-99)
[2025-02-01 15:28] VITALS: BP 147/68
[2025-02-01] MEDS: CRESTOR 20 MG PO (16:45)
[2025-02-01 18:19] LABS: Glucose - Point of Care 158 mg/dl (70-99)
[2025-02-01] MEDS: NOVOLOG FLEXPEN-LOW RESISTANCE 1 UNITS SC (18:21)
[2025-02-01 18:34] LABS: Vitamin B12 > 1000 pg/ml (239-931)
[2025-02-01 19:30] VITALS: BP 127/106
[2025-02-01] MEDS: LUMINAL 64.8 MG PO (21:14)
[2025-02-01 21:16] LABS: Glucose - Point of Care 48 mg/dl (70-99)
[2025-02-01 21:43] LABS: Glucose - Point of Care 62 mg/dl (70-99)
[2025-02-01 22:15] LABS: Glucose - Point of Care 60 mg/dl (70-99)
[2025-02-01 22:35] LABS: Glucose - Point of Care 97 mg/dl (70-99)
[2025-02-01 23:12] VITALS: BP 147/62
[2025-02-02 03:00] LABS: Glucose - Point of Care 56 mg/dl (70-99)
[2025-02-02 03:25] LABS: Glucose - Point of Care 80 mg/dl (70-99)
[2025-02-02 03:34] VITALS: BP 153/53
[2025-02-02] MEDS: NSS 1000 IV (04:51)
[2025-02-02 05:25] LABS: Glucose - Point of Care 84 mg/dl (70-99)
[2025-02-02 06:17] VITALS: BMI 36.5
[2025-02-02 06:39] LABS: Hematocrit 34.6 % (39.0-52.0); Hemoglobin 11.4 g/dL (13.0-18.0); Mean Corp Hgb Conc. 32.9 g/dL (33.0-37.0); Mean Corpuscular Volume 102.4 fL (80.0-94.0); Platelet Count 101 10^3/uL (130-400); Red Cell Dist. Width 12.5 % (11.5-14.5)
[2025-02-02 07:01] LABS: ALT (SGPT) 38 U/L (0-50); AST (SGOT) 44 U/L (17-59); Albumin 3.4 g/dl (3.5-5.0); Alkaline Phosphatase 86 U/L (38-126); Blood Urea Nitrogen 32 mg/dl (9-20); Calcium 8.9 mg/dl (8.4-10.2); Carbon Dioxide 23 mmol/L (22-30); Chloride 106 mmol/L (98-107); Estimated Creatinine Clearance 28 ml/min; Glucose 132 mg/dl (70-99); Potassium 4.4 mmol/L (3.5-5.1); Sodium 134 mmol/L (135-145); Total Protein 6.3 g/dl (6.3-8.2); eGFR 28.81
--- NOTE | 2025-02-02 07:09 | W.PN.HOSP.TC ---
Today's Communication/Plan
-
Monitor weight, I's/O,
Start oral diuretics start along with lisinopril
discontinued iv fluids by given physical examination of fluid overload findings.
Assessment / Plan
Assessment / Plan
85-year-old male with past medical history of ASCVD, congestive heart failure, paroxysmal atrial fibrillation, hypertension, diabetes, chronic kidney disease, hypothyroidism and benign prostatic hyperplasia presented with weakness, persistent
peripheral neuropathy pain in his legs, loss of appetite associated with nausea and concern for alcohol addiction.
# Chronic heart failure with reduced ejection fraction:
Vitals: 130/64, [place] 61, RR 16, temp 98.1, O2 sat 100.
On examination: Pedal edema,, systolic murmur.
I/O 4320/
Weight gain 100.1--102.5 kg
Hemoglobin 12.1--11.4, WBC WNL.
Sodium 137--134 low, bun 41--32, potassium 3.7--4.4, GFR 28.8, creatinine clearance 28, creatinine 2.9-2.2 high.
Alcohol quantitative--109
On examination: Pedal edema present, systolic murmur.
WBC 6.8, hemoglobin 10.7--12.1, platelet count 111--99 low, creatinine 3.3--2.9, bun 52--41.
Urine culture no growth
Vitamin B6, vitamin B12 pending, TSH 1.3 normal
Lipase 313 high, folate>20 high, Alcohol 109 detected
COVID, flu negative
EKG 01/30: HR 60 bpm, QTc 536 ms, QRS 228, atrial flutter and ventricular paced rhythm.
Echo 01/31 reports: EF is stable at 35 to 40%. Patient also has known severe with mean gradient 33 mmHg and ALINA 0.48 cm2, compared to echo from 05/18/2024 when mean gradient was 35 mmHg and ALINA 0.7 cm2.
Plan for future TAVR program.
Patient has mean gradient 33 mmHg with ALINA 0.48 probably due to reduced ejection fraction 35 to 40% resulted in the given above echo value.
On 01/31 abdominal ultrasound finding:
1. MODERATE DIFFUSE HEPATIC STEATOSIS.
2. No sonographic evidence for cholelithiasis or biliary obstruction.
3. Mild to moderate chronic bilateral renal disease.
On 01/30 USG kidney:
Bilateral kidney cysts. No evidence for pelvicalyceal dilation.
No significant focal abnormality of the urinary bladder. Patient was unable to spontaneously void, and postvoid bladder residual could not be assessed. Ureteral jets are not visualized.
Monitor weight, I's/O,
oral diuretics start along with lisinopril
discontinued iv fluids
# Acute kidney injury due to poor oral intake along with diuretics furosemide 20 mL/TONG inhibitor lisinopril 5 mg usage:
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
Continue with IV fluids
Monitor bladder for urine output
Hold nephrotoxic medications includes Lasix, lisinopril and observe creatinine.
Current creatinine is 3.8
Nephrology consult
# Hypokalemia secondary to alcohol
Potassium replenished with 40 mill equivalents oral
# Severe ethanol use disorder:
Thiamine infusion
At risk for alcohol withdrawal follow MSAS protocol
Worsening chronic tremor.
Lorazepam as needed
Continue thiamine and folic acid
Currently on phenobarbital taper dosage.
#ASCVD
- [employer] aspirin
- [employer] rosuvastatin
#Paroxysmal AF
PPM implant for HX CHB
- c/w Eliquis
#Essential HTN
- Hold lisinopril due to CRISPIN
- c/w metoprolol
JOSE on CPAP HS
TTE in future,
# PT, OT consulted
DVT Px: chr Eliquis
Code: Full code
Dispo: Home
Anticipated Discharge: 24 - 48 hours
Subjective/Interval History
-
Date of Service: February 02, 2025
Overnight the patient denied dizziness, palpitation, chest pain, neuropathy symptoms includes burning sensation at the feet.
Today morning I discussed with the current in charge nurse WILL-he mention the patient was able to use the restroom and walk around the room with walker and had no imbalance issues, patient also agreed with that.
Objective Data
-
Labs:
Laboratory Results
02/02/25
06:09
WBC 6.1
Hgb 11.4 L
Hct 34.6 L
Plt Count 101 L
Sodium 134 L
Potassium 4.4
Chloride 106
Carbon Dioxide 23
BUN 32 H
Creatinine 2.2 H
Glucose 132 H
Calcium 8.9
Total Bilirubin 0.7
AST 44
ALT 38
Alkaline Phosphatase 86
Vital Signs:
Vital Signs
Temp Pulse Resp BP Pulse Ox
97.5 F 62 18 153/53 100
02/02/25 03:34 02/02/25 03:34 02/02/25 03:34 02/02/25 03:34 02/02/25 03:34
I&O
02/01/25 02/02/25 02/03/25
06:59 06:59 06:59
Intake Total 2800 / 2800 4320 / 4320
Output Total 560 / 560
Balance 2240 / 2240 4320 / 4320
Review of Systems
-
History Source: Patient
All other systems: Reviewed and negative
Physical Exam
-
General: No Apparent Distress
HEENT: Moist Mucous Membranes
Respiratory: Crackles (Bilateral lower lobe)
Cardiac: Regular Rhythm
GI: Soft, Nontender and Nondistended
Genito-urinary: No Costovertebral Tender
Musculoskeletal: No Clubbing, No Cyanosis and Other (Bilateral pitting edema +)
Neuro: AO x 3
Hematologic / Lymphatic: No Lymphadenopathy
Psych: Calm
[2025-02-02 07:53] VITALS: BP 130/64
[2025-02-02 08:07] LABS: Glucose - Point of Care 109 mg/dl (70-99)
[2025-02-02] MEDS: NOVOLOG FLEXPEN-LOW RESISTANCE SC ×3 (08:21→16:57)
[2025-02-02] MEDS: NEURONTIN 100 MG PO ×3 (08:22→19:50)
[2025-02-02] MEDS: PROTONIX 40 MG PO (08:22)
[2025-02-02] MEDS: KCL 20 MEQ PO (08:22)
[2025-02-02] MEDS: LOW STRENGTH ASPIRIN 81 MG PO (08:22)
[2025-02-02] MEDS: VITAMIN B-12 100 MCG PO (08:22)
[2025-02-02] MEDS: TOPROL XL 25 MG PO ×2 (08:22→19:43)
[2025-02-02] MEDS: FOLVITE 1 MG PO (08:24)
[2025-02-02] MEDS: VITAMIN D3 (cholecalciferol) 25 MCG PO (08:24)
[2025-02-02] MEDS: FEOSOL 325 MG PO (08:24)
[2025-02-02] MEDS: ELIQUIS 2.5 MG PO (08:24)
[2025-02-02] MEDS: THIAMINE INJECTION 200 MG IV (08:25)
[2025-02-02] MEDS: LUMINAL 64.8 MG PO ×3 (08:29→21:00)
[2025-02-02] MEDS: LEXAPRO 10 MG PO (08:29)
--- NOTE | 2025-02-02 08:34 | W.PN.UPDATE ---
Update Note
Progress Note Update
Patient had echocardiogram as an inpatient on 01/31/2025 and EF is stable at 35 to 40%. Patient also has known severe with mean gradient 33 mmHg and ALINA 0.48 cm2, compared to echo from 05/18/2024 when mean gradient was 35 mmHg and ALINA 0.7 cm2.
Patient currently admitted with CRISPIN on CKD 3B in the setting of EtOH use disorder. We can talk to patient in the office about referral to the TAVR program. Appointment left on chart.
[2025-02-02 11:07] VITALS: BP 117/59
[2025-02-02 11:59] LABS: Glucose - Point of Care 120 mg/dl (70-99)
[2025-02-02] MEDS: LASIX 20 MG PO ×2 (13:00→15:45)
--- NOTE | 2025-02-02 13:09 | WOUNDNOTE ---
[facility] RN note: Patient seen during prevalence for coccyx stage 2 appearing granular wound in coccyx crease suspect at an old healed pilonidal cyst area. Wound bled moderate slightly cloudy drainage during cleansing. Sacral shaped silicone border foam
reapplied. Bariatric air chair cushion placed on recliner chair. Patient stood with walker and assist from RN Will. Instructed patient to spend time in bed on his side besides in the chair to help off load his coccyx. He has been sleeping in a
recliner chair even at home. Instructed patient to do frequent buttocks lifts/shifts to off load coccyx. Patient verbalized understanding. Patient stated his appetite is better today. [place] texted Dr. Jeff skin update noting wound picture
in chart. Care plan and discharge instructions to be updated. Recommend patient follow up at [facility].
--- NOTE | 2025-02-02 15:30 | CM ---
Patient seen bedside.
Patient spoke with [facility] yesterday and happy with exchange.
Patient would like [facility] on d/c, tt to liaison.
Plan: home with [facility] once medically stable.
[2025-02-02 15:38] VITALS: BP 130/57
--- NOTE | 2025-02-02 15:43 | VNURNOTE ---
Home Health Liaison spoke with patient to discuss [facility] nurse/therapy, visits, schedule and homebound status. Patient is agreeable and understands that visits at home will be 2-3 x per week to assess and teach medical and wound care management.
Patient is aware that [facility] will contact them for start of care within a few days after discharge from . He is familiar with our services. Patient stated that he lives alone and feels he might need SNF before going home. CM updated. PT/OT recs
note HH. Asked pt if there was someone who could learn wound care (ordered daily). He stated his friend Romaine Edwards would help. Noted that info on referral. Pt w/hx HF, confirms that he has a scale at home.
[facility] referral completed in [facility].
[2025-02-02] MEDS: CRESTOR 20 MG PO (15:48)
--- NOTE | 2025-02-02 16:04 | W.PN.UPDATE ---
Update Note
Progress Note Update
Around 3:30 PM patient blew the nose and nasal bleeding started,
Denied dizziness, palpitation, chest pain.
His blood pressure 130/64---117/59( restarted lasix today morning could be the reason for the drop in blood pressure)-- 130/57; MN 77-- 61
o/e: mild lower left side crackles+
plan:
b/l nasal pack with normal saline.
held eliquis for tonight
Recommend pt to report if he experiences hematuria or blood in the stools.
Will recheck around 6pm
[2025-02-02 16:54] LABS: Glucose - Point of Care 110 mg/dl (70-99)
--- NOTE | 2025-02-02 19:31 | W.PN.ENT ---
Today's Communication
-
Epistaxis precautions, no nose sprays for now, f/u with ENT as scheduled next week.
Impression / Plan
-
The patient is an 85 yoM with acute right epistaxis anterior superior source. Successfully cauterized and thin layer of petroleum applied. No nose blowing, sneeze with mouth open. Patient will follow up with Dr. Talamantes as scheduled next week if d/c'd
home. Would hold blood thinner for total of 48hrs if possible.
Subjective Data
-
Patient seen and the bedside. BRB from the left naris. Patient reports a recent sinus infection and spontaneous bleeding from the right nostril earlier today. Has history of FESS and septoplasty, has a known septal perforation. On blood thinner
which has now been held.
Objective Data
-
Vital Signs
Temp Pulse Resp BP Pulse Ox
97.6 F 61 16 130/57 98
02/02/25 15:38 02/02/25 15:45 02/02/25 15:38 02/02/25 15:45 02/02/25 15:38
Intake & Output
02/01/25 02/02/25 02/03/25
06:59 06:59 06:59
Intake:
Oral fluids 960 / 960 3440 / 3440 960 / 960
IV fluids (Total) 1840 / 1840 880 / 880
Output:
Urine, Voided 560 / 560
Other:
How many times incontinent 1
MODERATE amount urine
Number of approximated MODERATE 1 3 4
amounts of urine
Lab Results
02/02/25 06:09
02/02/25 06:09
Calcium 8.9 mg/dl (8.4-10.2) 02/02/25 06:09
Phosphorus 3.3 mg/dl (2.5-4.5) 01/31/25 07:04
Magnesium 2.3 mg/dl (1.6-2.3) 01/31/25 07:04
Total Bilirubin 0.7 mg/dl (0.2-1.3) 02/02/25 06:09
AST 44 U/L (17-59) 02/02/25 06:09
ALT 38 U/L (0-50) 02/02/25 06:09
Alkaline Phosphatase 86 U/L (38-126) 02/02/25 06:09
Lipase 313 U/L (23-300) H 01/30/25 15:29
TSH 1.37 uIU/ml (0.47-4.68) 01/31/25 12:49
Urine Color Yellow 01/31/25 11:12
Urine Clarity Clear (Clear) 01/31/25 11:12
Urine pH 6.0 (5.0-9.0) 01/31/25 11:12
Ur Specific Sanders 1.015 (<1.030) 01/31/25 11:12
Urine Ketones Negative (Negative) 01/31/25 11:12
Physical Exam
-
GEN: NAD, Alert and oriented
HEENT: Oozing blood right nasal cavity, gauze removed, b/l. No bleeding from the left side. Large clots removed from the right nostril, bleeding multiple sites right anterior septum and superiorly. Required at least 12 passes with silver nitrate to
control bleeding. No blood in the OP.
[2025-02-02 19:33] VITALS: BP 155/70
[2025-02-02] MEDS: VITAMIN B1 100 MG PO (19:50)
[2025-02-02 20:35] LABS: Hematocrit 35.3 % (39.0-52.0); Hemoglobin 11.7 g/dL (13.0-18.0); Mean Corp Hgb Conc. 33.1 g/dL (33.0-37.0); Mean Corpuscular Volume 103.8 fL (80.0-94.0); Platelet Count 127 10^3/uL (130-400); Red Cell Dist. Width 12.4 % (11.5-14.5)
[2025-02-02 21:25] LABS: Glucose - Point of Care 144 mg/dl (70-99)
[2025-02-02] MEDS: DILAUDID 0.25 MG IV (21:40)
[2025-02-02 22:52] VITALS: BP 121/88
[2025-02-03 04:03] VITALS: BP 148/73
[2025-02-03 05:14] VITALS: BMI 36.5
[2025-02-03 07:00] VITALS: BP 159/74
--- NOTE | 2025-02-03 07:13 | W.PN.HOSP.TC ---
Today's Communication/Plan
-
Consult ENT to restart Eliquis
Assessment / Plan
Assessment / Plan
85-year-old male with past medical history of ASCVD, congestive heart failure, paroxysmal atrial fibrillation, hypertension, diabetes, chronic kidney disease, hypothyroidism and benign prostatic hyperplasia presented with weakness, persistent
peripheral neuropathy pain in his legs, loss of appetite associated with nausea and concern for alcohol addiction.
# Chronic heart failure with reduced ejection fraction:
Vitals: BP 159/74 , [place] 62, RR 18, O2 sat 100 room air.
Hemoglobin 11.7--11.7.
Blood glucose 110--144--73 today morning.
On examination: Pedal edema,, systolic murmur.
I/O 4320/
Weight gain 100.1--102.5 kg
Hemoglobin 12.1--11.4, WBC WNL.
Sodium 137--134 low, bun 41--32, potassium 3.7--4.4, GFR 28.8, creatinine clearance 28, creatinine 2.9-2.2 high.
Alcohol quantitative--109
On examination: Pedal edema present, systolic murmur.
WBC 6.8, hemoglobin 10.7--12.1, platelet count 111--99 low, creatinine 3.3--2.9, bun 52--41.
Urine culture no growth
Vitamin B6, vitamin B12 pending, TSH 1.3 normal
Lipase 313 high, folate>20 high, Alcohol 109 detected
COVID, flu negative
EKG 01/30: HR 60 bpm, QTc 536 ms, QRS 228, atrial flutter and ventricular paced rhythm.
Echo 01/31 reports: EF is stable at 35 to 40%. Patient also has known severe with mean gradient 33 mmHg and ALINA 0.48 cm2, compared to echo from 05/18/2024 when mean gradient was 35 mmHg and ALINA 0.7 cm2.
Plan for future TAVR program.
Patient has mean gradient 33 mmHg with ALINA 0.48 probably due to reduced ejection fraction 35 to 40% resulted in the given above echo value.
On 01/31 abdominal ultrasound finding:
1. MODERATE DIFFUSE HEPATIC STEATOSIS.
2. No sonographic evidence for cholelithiasis or biliary obstruction.
3. Mild to moderate chronic bilateral renal disease.
On 01/30 USG kidney:
Bilateral kidney cysts. No evidence for pelvicalyceal dilation.
No significant focal abnormality of the urinary bladder. Patient was unable to spontaneously void, and postvoid bladder residual could not be assessed. Ureteral jets are not visualized.
Monitor weight, I's/O,
oral diuretics start along with lisinopril
discontinued iv fluids
Discussed with case management and [facility] placement available for the disposition status.
# Acute kidney injury due to poor oral intake along with hold for diuretics furosemide 20 mL/TONG inhibitor lisinopril 5 mg usage:
Chemistry: Bun 30 high, creatinine 2.2--2.4 high, estimated creatinine clearance 28-26 (hold Lasix for today).
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
Monitor bladder for urine output
Hold nephrotoxic medications includes Lasix, lisinopril and observe creatinine.
Current creatinine is 2.4
Nephrology consult
# Hypokalemia secondary to alcohol
Potassium replenished with 40 mill equivalents oral
# Severe ethanol use disorder:
Thiamine infusion
At risk for alcohol withdrawal follow MSAS protocol
Worsening chronic tremor.
Lorazepam as needed
Continue thiamine and folic acid
Currently on phenobarbital taper dosage.
#ASCVD
- [employer] aspirin
- [employer] rosuvastatin
#Paroxysmal AF
PPM implant for HX CHB
- c/w Eliquis
#Essential HTN
- Hold lisinopril due to CRISPIN
- c/w metoprolol
JOSE on CPAP HS
TTE in future,
# PT, OT consulted
DVT Px: chr Eliquis
Code: Full code
Dispo: Home
currently on hold for Eliquis-consult ENT to restart.
Anticipated Discharge: 24 - 48 hours
Subjective/Interval History
-
Date of Service: February 03, 2025
Overnight around 6 PM the patient had nosebleed with clots after second nasal pack, held Eliquis. ENT consulted and on examination left side anterior nasal septum epistaxis, Chemical cauterized with silver nitrate to control bleeding. After the
procedure rebleeding checked by asking the patient's to lean forward and no rebleeding after the procedure.
Currently patient has no concern for systemic symptoms chest pain, palpitation, shortness of breath, edema, nasal bleed.
Objective Data
-
Labs:
Laboratory Results
02/02/25 02/03/25
20:14 06:49
WBC 7.0 Pending
Hgb 11.7 L Pending
Hct 35.3 L Pending
Plt Count 127 L D Pending
Sodium Pending
Potassium Pending
Chloride Pending
Carbon Dioxide Pending
BUN Pending
Creatinine Pending
Glucose Pending
Calcium Pending
Total Bilirubin Pending
AST Pending
ALT Pending
Alkaline Phosphatase Pending
Vital Signs:
Vital Signs
Temp Pulse Resp BP Pulse Ox
98.1 F 63 18 148/73 93
02/03/25 04:03 02/03/25 04:03 02/03/25 04:03 02/03/25 04:03 02/03/25 04:03
I&O
02/02/25 02/03/25 02/04/25
06:59 06:59 06:59
Intake Total 4320 / 4320 1080 / 1080
Balance 4320 / 4320 1080 / 1080
Physical Exam
-
Respiratory: Clear to Auscultation
Cardiac: Regular Rhythm and Murmur (Systolic murmur)
GI: Soft, Nontender and Nondistended
Genito-urinary: No Costovertebral Tender
Musculoskeletal: No Clubbing and No Edema
Skin: Warm
Neuro: AO x 3
Hematologic / Lymphatic: No Lymphadenopathy
Psych: Calm
[2025-02-03 07:37] LABS: Glucose - Point of Care 73 mg/dl (70-99)
[2025-02-03 08:03] LABS: Hematocrit 34.5 % (39.0-52.0); Hemoglobin 11.7 g/dL (13.0-18.0); Mean Corp Hgb Conc. 33.9 g/dL (33.0-37.0); Mean Corpuscular Volume 103.0 fL (80.0-94.0); Platelet Count 132 10^3/uL (130-400); Red Cell Dist. Width 12.4 % (11.5-14.5)
[2025-02-03 08:28] LABS: ALT (SGPT) 37 U/L (0-50); AST (SGOT) 35 U/L (17-59); Albumin 3.6 g/dl (3.5-5.0); Alkaline Phosphatase 93 U/L (38-126); Blood Urea Nitrogen 30 mg/dl (9-20); Calcium 9.0 mg/dl (8.4-10.2); Carbon Dioxide 21 mmol/L (22-30); Chloride 104 mmol/L (98-107); Estimated Creatinine Clearance 26 ml/min; Glucose 122 mg/dl (70-99); Potassium 3.9 mmol/L (3.5-5.1); Sodium 136 mmol/L (135-145); Total Protein 6.6 g/dl (6.3-8.2); eGFR 25.96
[2025-02-03] MEDS: NOVOLOG FLEXPEN-LOW RESISTANCE SC ×3 (08:48→17:08)
[2025-02-03] MEDS: LOW STRENGTH ASPIRIN 81 MG PO (08:48)
[2025-02-03] MEDS: KCL 20 MEQ PO (08:48)
[2025-02-03] MEDS: NEURONTIN 100 MG PO ×3 (08:50→21:21)
[2025-02-03] MEDS: VITAMIN B-12 100 MCG PO (08:50)
[2025-02-03] MEDS: TOPROL XL 25 MG PO ×2 (08:50→21:20)
[2025-02-03] MEDS: FEOSOL 325 MG PO (08:50)
[2025-02-03] MEDS: FOLVITE 1 MG PO (08:50)
[2025-02-03] MEDS: PROTONIX 40 MG PO (08:50)
[2025-02-03] MEDS: VITAMIN D3 (cholecalciferol) 25 MCG PO (08:50)
[2025-02-03] MEDS: LEXAPRO 10 MG PO (08:51)
[2025-02-03] MEDS: LASIX PO ×3 (08:51→16:59)
[2025-02-03] MEDS: LUMINAL 64.8 MG PO ×2 (08:52→17:00)
[2025-02-03] MEDS: VITAMIN B1 100 MG PO ×2 (08:52→21:24)
[2025-02-03 10:24] VITALS: BMI 36.7
[2025-02-03 11:00] VITALS: BP 127/64
[2025-02-03 11:37] LABS: Glucose - Point of Care 134 mg/dl (70-99)
--- NOTE | 2025-02-03 11:58 | CM ---
CM reviewed chart, patient seen in chair.
CM discussed therapy recommendations of SNF.
Pt agreeable, requesting referrals to [facility], also referrals to [facility] as son resides there.
CM will continue to follow for all d/c planning needs.
Plan; SNF pending accepting facility
[2025-02-03 15:00] VITALS: BP 144/51
[2025-02-03 17:08] LABS: Glucose - Point of Care 80 mg/dl (70-99)
[2025-02-03] MEDS: CRESTOR 20 MG PO (17:08)
[2025-02-03 19:35] VITALS: BP 141/62
[2025-02-03 20:56] LABS: Glucose - Point of Care 210 mg/dl (70-99)
[2025-02-03] MEDS: LUMINAL 32.4 MG PO (21:24)
[2025-02-03 23:03] VITALS: BP 123/60
[2025-02-04 03:01] VITALS: BP 141/69
[2025-02-04 05:37] VITALS: BMI 36.4
[2025-02-04 07:25] VITALS: BP 162/75
[2025-02-04 07:39] LABS: Glucose - Point of Care 100 mg/dl (70-99)
--- NOTE | 2025-02-04 07:43 | W.PN.HOSP.TC ---
Today's Communication/Plan
-
Plan:
Follow-up with [facility] outpatient for TAVR program
Will decide Lasix while on discharge by depends on his renal function for tomorrow.
Resume Eliquis from tomorrow
Follow-up with PCP within 1 week of discharge along with CBC, CMP results.
After discharge follow-up with ENT specialist Dr. Talamantes within a week.
Assessment / Plan
Assessment / Plan
85-year-old male with past medical history of ASCVD, congestive heart failure, paroxysmal atrial fibrillation, hypertension, diabetes, chronic kidney disease, hypothyroidism and benign prostatic hyperplasia presented with weakness, persistent
peripheral neuropathy pain in his legs, loss of appetite associated with nausea and concern for alcohol addiction.
# Chronic heart failure with reduced ejection fraction:
Vitals: BP 162/75, [place] 64, temp 97.9, RR 18, weight 103.05---102.3 kg
WBC 6.2, hemoglobin 11.7--10.8.
Chemistry: Sodium 136, potassium 3.9--4, bun 31, creatinine 2.4--2.1 held Lasix 20 mg on hold from yesterday,
On examination: Pedal edema,, systolic murmur.
s/p Alcohol quantitative--109
WBC 6.8, hemoglobin 10.7--12.1, platelet count 111--99 low, creatinine 3.3--2.9, bun 52--41.
Urine culture no growth
Vitamin B6, vitamin B12 pending, TSH 1.3 normal
Lipase 313 high, folate>20 high, Alcohol 109 detected
COVID, flu negative
EKG 01/30: HR 60 bpm, QTc 536 ms, QRS 228, atrial flutter and ventricular paced rhythm.
Echo 01/31 reports: EF is stable at 35 to 40%. Patient also has known severe with mean gradient 33 mmHg and ALINA 0.48 cm2, compared to echo from 05/18/2024 when mean gradient was 35 mmHg and ALINA 0.7 cm2.
Plan for future TAVR program.
Patient has mean gradient 33 mmHg with ALINA 0.48 probably due to reduced ejection fraction 35 to 40% resulted in the given above echo value.
On 01/31 abdominal ultrasound finding:
1. MODERATE DIFFUSE HEPATIC STEATOSIS.
2. No sonographic evidence for cholelithiasis or biliary obstruction.
3. Mild to moderate chronic bilateral renal disease.
On 01/30 USG kidney:
Bilateral kidney cysts. No evidence for pelvicalyceal dilation.
No significant focal abnormality of the urinary bladder. Patient was unable to spontaneously void, and postvoid bladder residual could not be assessed. Ureteral jets are not visualized.
Monitor weight, I's/O,
Currently Lasix on hold by given creatinine elevation
discontinued iv fluids
Discussed with case management and [facility] placement available for the disposition status.
# Acute kidney injury due to poor oral intake along with hold for diuretics furosemide 20 mL/TONG inhibitor lisinopril 5 mg usage:
Chemistry: Bun 30 high, creatinine 2.2--2.4 high--2.2, estimated creatinine clearance 28-26 (hold Lasix for today).
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
Monitor bladder for urine output
Hold nephrotoxic medications includes Lasix, lisinopril and observe creatinine.
Current creatinine is 2.4
Nephrology consult
# Hypokalemia secondary to alcohol
Potassium replenished with 40 mill equivalents oral
# Severe ethanol use disorder:
Thiamine infusion
At risk for alcohol withdrawal follow MSAS protocol
Worsening chronic tremor.
Lorazepam as needed
Continue thiamine and folic acid
Currently on phenobarbital taper dosage.
#ASCVD
- [employer] aspirin
- [employer] rosuvastatin
#Paroxysmal AF
PPM implant for HX CHB
- c/w Eliquis
#Essential HTN
- Hold lisinopril due to CRISPIN
- c/w metoprolol
JOSE on CPAP HS
TTE in future,
# PT, OT consulted
DVT Px: chr Eliquis
Code: Full code
Dispo: Home
by given the risk of epistaxis currently on hold for Eliquis-restart on Thursday
Anticipated Discharge: 24 - 48 hours
Subjective/Interval History
-
Date of Service: February 04, 2025
Overnight patient denied systemic symptoms include chest pain, palpitation, dizziness while on walking, nausea, vomiting.
Objective Data
-
Labs:
Laboratory Results
02/04/25
07:10
WBC Pending
Hgb Pending
Hct Pending
Plt Count Pending
Sodium Pending
Potassium Pending
Chloride Pending
Carbon Dioxide Pending
BUN Pending
Creatinine Pending
Glucose Pending
Calcium Pending
Total Bilirubin Pending
AST Pending
ALT Pending
Alkaline Phosphatase Pending
Vital Signs:
Vital Signs
Temp Pulse Resp BP Pulse Ox
98.2 F 64 18 141/69 93
02/04/25 03:01 02/04/25 03:01 02/04/25 03:01 02/04/25 03:01 02/04/25 03:01
I&O
02/03/25 02/04/25 02/05/25
06:59 06:59 06:59
Intake Total 1080 / 1080 640 / 640
Balance 1080 / 1080 640 / 640
Review of Systems
-
History Source: Patient
All other systems: Reviewed and negative
Physical Exam
-
General: No Apparent Distress
HEENT: Normocephalic
Respiratory: Crackles (Bilateral)
Cardiac: Murmur (Systolic murmur secondary to severe aortic stenosis)
GI: Soft, Nontender and Nondistended
Genito-urinary: No Costovertebral Tender
Musculoskeletal: Other (Bilateral pitting pedal edema)
Skin: Warm
Neuro: AO x 3
Hematologic / Lymphatic: No Lymphadenopathy
Psych: Calm
[2025-02-04 08:13] LABS: Hematocrit 32.1 % (39.0-52.0); Hemoglobin 10.8 g/dL (13.0-18.0); Mean Corp Hgb Conc. 33.6 g/dL (33.0-37.0); Mean Corpuscular Volume 101.3 fL (80.0-94.0); Platelet Count 135 10^3/uL (130-400); Red Cell Dist. Width 12.4 % (11.5-14.5)
[2025-02-04] MEDS: NOVOLOG FLEXPEN-LOW RESISTANCE SC ×2 (08:30→12:24)
[2025-02-04 08:43] LABS: ALT (SGPT) 35 U/L (0-50); AST (SGOT) 32 U/L (17-59); Albumin 3.5 g/dl (3.5-5.0); Alkaline Phosphatase 84 U/L (38-126); Blood Urea Nitrogen 31 mg/dl (9-20); Calcium 9.3 mg/dl (8.4-10.2); Carbon Dioxide 21 mmol/L (22-30); Chloride 106 mmol/L (98-107); Estimated Creatinine Clearance 29 ml/min; Glucose 110 mg/dl (70-99); Potassium 4.0 mmol/L (3.5-5.1); Sodium 136 mmol/L (135-145); Total Protein 6.3 g/dl (6.3-8.2); eGFR 30.47
[2025-02-04] MEDS: LASIX PO ×2 (08:51→17:03)
[2025-02-04] MEDS: LUMINAL 32.4 MG PO ×3 (08:58→21:49)
[2025-02-04] MEDS: LEXAPRO 10 MG PO (08:58)
[2025-02-04] MEDS: VITAMIN D3 (cholecalciferol) 25 MCG PO (08:59)
[2025-02-04] MEDS: KCL 20 MEQ PO (08:59)
[2025-02-04] MEDS: FEOSOL 325 MG PO (08:59)
[2025-02-04] MEDS: VITAMIN B1 100 MG PO ×2 (08:59→21:49)
[2025-02-04] MEDS: TOPROL XL 25 MG PO ×2 (08:59→21:49)
[2025-02-04] MEDS: PROTONIX 40 MG PO (08:59)
[2025-02-04] MEDS: VITAMIN B-12 100 MCG PO (08:59)
[2025-02-04] MEDS: NEURONTIN 100 MG PO ×3 (09:00→21:48)
[2025-02-04] MEDS: LOW STRENGTH ASPIRIN 81 MG PO (09:00)
[2025-02-04] MEDS: FOLVITE 1 MG PO (09:00)
[2025-02-04 11:00] VITALS: BP 108/74
[2025-02-04 11:27] LABS: Glucose - Point of Care 133 mg/dl (70-99)
[2025-02-04 15:15] VITALS: BP 132/56
[2025-02-04 16:52] LABS: Glucose - Point of Care 184 mg/dl (70-99)
[2025-02-04] MEDS: NOVOLOG FLEXPEN-LOW RESISTANCE 1 UNITS SC (17:01)
[2025-02-04] MEDS: CRESTOR 20 MG PO (17:09)
[2025-02-04 20:05] VITALS: BP 128/62
[2025-02-04 21:08] LABS: Glucose - Point of Care 134 mg/dl (70-99)
[2025-02-04 23:05] VITALS: BP 104/74
[2025-02-05 03:22] VITALS: BP 135/89
[2025-02-05 05:47] VITALS: BMI 36.2
--- NOTE | 2025-02-05 07:36 | W.PN.HOSP.TC ---
Today's Communication/Plan
-
Eliquis restarted at 2.5 mg tonight 8 PM.(Eliquis was held due to anterior epistaxis)
Vitamin B6 pending
Diuretic on hold restart tomorrow depending on his creatinine level while on discharge.
Continue thiamine, folic acid supplement.
S/p phenobarbital taper.
Assessment / Plan
Assessment / Plan
85-year-old male with past medical history of ASCVD, congestive heart failure, paroxysmal atrial fibrillation, hypertension, diabetes, chronic kidney disease, hypothyroidism and benign prostatic hyperplasia presented with weakness, persistent
peripheral neuropathy pain in his legs, loss of appetite associated with nausea and concern for alcohol addiction.
# Acute kidney injury due to poor oral intake along with hold for diuretics furosemide 20 mL/TONG inhibitor lisinopril 5 mg usage:
Vitals : 141/62, MO 61, RR 16, saturation 97, temp 98.
Hemoglobin 10.8--10.7, Poc glucose 134--104, creatinine 2.4--2.1--1.8 currently Lasix on hold
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
Monitor bladder for urine output
Hold nephrotoxic medications includes Lasix, lisinopril and observe creatinine.
On exam: Bilateral lung crackles lower lobe present, pitting edema, systolic murmur.
s/p Alcohol quantitative--109
Urine culture no growth
Vitamin B6 pending, vitamin B12 > 1000 high, TSH 1.3 normal
Lipase 313 high, folate>20 high, Alcohol 109 detected
COVID, flu negative
EKG 01/30: HR 60 bpm, QTc 536 ms, QRS 228, atrial flutter and ventricular paced rhythm.
On 01/31 abdominal ultrasound finding:
1. MODERATE DIFFUSE HEPATIC STEATOSIS.
2. No sonographic evidence for cholelithiasis or biliary obstruction.
3. Mild to moderate chronic bilateral renal disease.
On 01/30 USG kidney:
Bilateral kidney cysts. No evidence for pelvicalyceal dilation.
No significant focal abnormality of the urinary bladder. Patient was unable to spontaneously void, and postvoid bladder residual could not be assessed. Ureteral jets are not visualized.
Monitor weight, I's/O,
Discussed with case management and [facility] placement available for the disposition status.
# Severe aortic stenosis
[facility] consulted and recommended :echo 01/31 reports: EF is stable at 35 to 40%. Patient also has known severe with mean gradient 33 mmHg and ALINA 0.48 cm2, compared to echo from 05/18/2024 when mean gradient was 35 mmHg and ALINA 0.7 cm2.
Plan for future TAVR program at outpatient .
Patient has mean gradient 33 mmHg with ALINA 0.48 probably due to reduced ejection fraction 35 to 40% resulted in the given above echo value.
# Hypokalemia secondary to alcohol
Potassium replenished with 40 mill equivalents oral
# Severe ethanol use disorder:
Thiamine infusion
At risk for alcohol withdrawal follow MSAS protocol
Worsening chronic tremor.
Lorazepam as needed
Continue thiamine and folic acid
Today is the last dose for phenobarbital taper dosage.
# Arthrosclerotic cardiovascular disease:
- PROCESS STEWARD aspirin
- PROCESS STEWARD rosuvastatin
#Paroxysmal AF
PPM implant for HX CHB
- c/w Eliquis
#Essential HTN
- Hold lisinopril due to CRISPIN
- c/w metoprolol
JOSE on CPAP HS
# PT, OT consulted
DVT Px: chr Eliquis
Code: Full code
Dispo: Discussed with case management for the SNF placement pending status
Anticipated Discharge: Within 24 hours
Subjective/Interval History
-
Date of Service: February 05, 2025
Overnight patient denied bleeding includes epistaxis, hematochezia, hematuria, abdominal pain, chest pain, palpitation, dizziness.
Objective Data
-
Labs:
Laboratory Results
02/05/25
07:24
WBC Pending
Hgb Pending
Hct Pending
Plt Count Pending
Sodium Pending
Potassium Pending
Chloride Pending
Carbon Dioxide Pending
BUN Pending
Creatinine Pending
Glucose Pending
Calcium Pending
Total Bilirubin Pending
AST Pending
ALT Pending
Alkaline Phosphatase Pending
Vital Signs:
Vital Signs
Temp Pulse Resp BP Pulse Ox
98.2 F 61 18 135/89 97
02/05/25 03:22 02/05/25 03:22 02/05/25 03:22 02/05/25 03:22 02/05/25 03:22
I&O
02/04/25 02/05/25 02/06/25
06:59 06:59 06:59
Intake Total 640 / 640 480 / 480
Balance 640 / 640 480 / 480
Review of Systems
-
History Source: Patient
All other systems: Reviewed and negative
Physical Exam
-
General: Well Developed
Respiratory: Crackles (b/l lower lobe crackles present)
Cardiac: S1/S2 and Murmur (Systolic murmur)
GI: Soft, Nontender and Nondistended
Genito-urinary: No Costovertebral Tender
Musculoskeletal: No Clubbing, No Cyanosis and Other (pitting b/l pedal edema)
Skin: Warm
Neuro: AO x 3
Hematologic / Lymphatic: No Lymphadenopathy
Psych: Calm
[2025-02-05 07:47] LABS: Glucose - Point of Care 104 mg/dl (70-99)
[2025-02-05] MEDS: NOVOLOG FLEXPEN-LOW RESISTANCE SC ×3 (07:50→17:46)
[2025-02-05 07:55] VITALS: BP 141/62
[2025-02-05 08:34] LABS: Hematocrit 31.8 % (39.0-52.0); Hemoglobin 10.7 g/dL (13.0-18.0); Mean Corp Hgb Conc. 33.6 g/dL (33.0-37.0); Mean Corpuscular Volume 102.9 fL (80.0-94.0); Nucleated Red Blood Cells % 0 % (-); Platelet Count 157 10^3/uL (130-400); Red Cell Dist. Width 12.7 % (11.5-14.5)
[2025-02-05] MEDS: LOW STRENGTH ASPIRIN 81 MG PO (08:38)
[2025-02-05] MEDS: PROTONIX 40 MG PO (08:38)
[2025-02-05] MEDS: VITAMIN B-12 100 MCG PO (08:38)
[2025-02-05] MEDS: FEOSOL 325 MG PO (08:39)
[2025-02-05] MEDS: KCL 20 MEQ PO (08:39)
[2025-02-05] MEDS: TOPROL XL 25 MG PO ×2 (08:39→20:54)
[2025-02-05] MEDS: VITAMIN B1 100 MG PO ×2 (08:40→21:00)
[2025-02-05] MEDS: LUMINAL 32.4 MG PO ×2 (08:40→17:16)
[2025-02-05] MEDS: NEURONTIN 100 MG PO ×3 (08:40→20:53)
[2025-02-05] MEDS: VITAMIN D3 (cholecalciferol) 25 MCG PO (08:40)
[2025-02-05] MEDS: FOLVITE 1 MG PO (08:40)
[2025-02-05] MEDS: LEXAPRO 10 MG PO (08:40)
[2025-02-05] MEDS: LASIX PO (08:40)
[2025-02-05 08:41] LABS: ALT (SGPT) 34 U/L (0-50); AST (SGOT) 36 U/L (17-59); Albumin 3.5 g/dl (3.5-5.0); Alkaline Phosphatase 86 U/L (38-126); Blood Urea Nitrogen 29 mg/dl (9-20); Calcium 9.7 mg/dl (8.4-10.2); Carbon Dioxide 19 mmol/L (22-30); Chloride 107 mmol/L (98-107); Estimated Creatinine Clearance 34 ml/min; Glucose 108 mg/dl (70-99); Potassium 4.1 mmol/L (3.5-5.1); Sodium 136 mmol/L (135-145); Total Protein 6.5 g/dl (6.3-8.2); eGFR 36.66
[2025-02-05 11:26] VITALS: BP 130/54
[2025-02-05 12:27] LABS: Glucose - Point of Care 147 mg/dl (70-99)
[2025-02-05 15:30] VITALS: BP 133/69
[2025-02-05] MEDS: CRESTOR 20 MG PO (17:17)
[2025-02-05 17:42] LABS: Glucose - Point of Care 131 mg/dl (70-99)
[2025-02-05] MEDS: ELIQUIS 2.5 MG PO (20:58)
[2025-02-05] MEDS: DESENEX/MITRAZOL/ZEASORB 1 APPLIC TOPICAL (21:03)
[2025-02-05 22:10] LABS: Glucose - Point of Care 170 mg/dl (70-99)
[2025-02-05 23:03] VITALS: BP 154/66
[2025-02-06 06:00] VITALS: BMI 36.1
--- NOTE | 2025-02-06 07:15 | W.PN.HOSP.TC ---
Addendum entered and electronically signed by Natalie Munoz MD 02/06/25 17:24:
I saw and evaluated the patient independently. I reviewed and discussed the resident�s note and agree with findings and plan as documented by Dr. Barfield.
GENERAL: well developed, well nourished, male in no apparent distress
HEENT: NC/AT
HEART: regular rate and rhythm, +S1, +S2
LUNGS : clear to auscultation bilaterally with decreased BS
ABDOM: soft, nontender, nondistended, + bowel sounds
EXT: no cyanosis, clubbing--trace edema
NEUROLOGIC: grossly intact
Prerenal CRISPIN on CKD IIIb--likely due to poor PO intake with overdiuresis--creat improving--holding lisinopril--will d/c on lower lasix dosing
Alcohol withdrawal in s/o AUD --finished phenobarb taper--Pt had been drinking significant amt vodka at home prior to admission in s/o bilat LE pain ('up to a quart of vodka/day)-- S/p phenobarbital taper, ended 02/05--cont folate and thiamine
Peripheral neuropathy-- likely from DM and ETOH--gabapentin improves symptoms
Acute right anterior epistaxis--Resolved s/p cauterization by ENT. Home Eliquis on hold, hemoglobin generally stable- Eliquis resumed 02/05- Plan for outpatient f/u with ENT after discharge
Severe /HFrEF (35-40% EF) - Question LF-LG disease with mean gradient of 33 and ALINA 0.48 cm� on echo 01/31. Will plan for outpatient cards f/u, possible dobutamine stress test & consideration for TAV
T2DM - ISS
Essential HTN - continue home metoprolol
JOSE - CPAP at 8
ASCVD - continue home aspirin & statin
DVT proph-- eliquis
Code--status-- full
D/c to SNF
Original Note:
Today's Communication/Plan
-
- Discharge today to [facility]
- Plan for discharge with halved home lasix dose, normal home lisinopril dose
- F/u with ENT & cardiology outpatient
Assessment / Plan
Assessment / Plan
85yo M with a hx of ASCVD, severe /HFrEF (35-40% EF), paroxysmal afib (on eliquis), HTN, T2DM, CKD IIIb, hypothyroidism, & BPH who presented with weakness, nausea, loss of appetite, & neuropathic pain in bilat LE c/b alcohol abuse, now improved
s/p phenobarb taper and gabapentin.
#Prerenal CRISPIN
#CKD IIIb
Pt with CRISPIN on admission (Cr 2.4 from ~1.9 baseline) likely 2/2 poor PO intake in conjunction w home furosemide & ACEi. S/p IVF. Cr downtrending 1.6. Renal US & UA unremarkable.
- Holding home ACEi & lisinopril inpatient
- Plan to discharge with lower dose lasix (20mg daily, from 20mg bid) & previous home dose lisinopril
- Trend CMP
#Alcohol withdrawal in s/o AUD
Pt had been drinking significant amt vodka at home prior to admission in s/o bilat LE pain ('up to a quart of vodka/day). S/p phenobarbital taper, ended 02/05.
- Continue B1 & B9 supplementation
- MSAS 0
#Peripheral neuropathy
In bilat LE; likely associated with diabetes and alcohol use. TSH wnl. Sx improved s/p gabapentin.
- Continue 100mg gabapentin tid
#Acute right anterior epistaxis
Resolved s/p cauterization by ENT. Home Eliquis on hold, hemoglobin generally stable.
- Eliquis resumed 02/05
- Plan for outpatient f/u with ENT after discharge
#Chronic
#Severe /HFrEF (35-40% EF) - Question LF-LG disease with mean gradient of 33 and ALINA 0.48 cm� on echo 01/31. Will plan for outpatient cards f/u, possible dobutamine stress test & consideration for TAVR.
#T2DM - ISS
#HTN - continue home metoprolol
#JOSE - CPAP at 8
#ASCVD - continue home aspirin & statin
#Global
- DVT ppx: eliquis
- Diet: diabetic
- Code: full
- Dispo: discharge to [facility] today
Anticipated Discharge: Today
Subjective/Interval History
-
Date of Service: February 06, 2025
Pt feeling well this am. States that his appetite is good, no n/v. Denies any LAM or jitteriness. Some worsening SAPPHIRE bilaterally but no SOB. States that his neuropathy is much improved, as is essential tremor, since starting gabapentin. Only concern
is bilat leg weakness. Concerned about going back to 2-story home where lives alone. Wants to go to a rehab facility, [facility].
Objective Data
-
Labs:
Laboratory Results
02/06/25
06:00
WBC Pending
Hgb Pending
Hct Pending
Plt Count Pending
Sodium Pending
Potassium Pending
Chloride Pending
Carbon Dioxide Pending
BUN Pending
Creatinine Pending
Glucose Pending
Calcium Pending
Total Bilirubin Pending
AST Pending
ALT Pending
Alkaline Phosphatase Pending
Vital Signs:
Vital Signs
Temp Pulse Resp BP Pulse Ox
97.6 F 62 18 154/66 96
02/05/25 23:03 02/05/25 23:03 02/05/25 23:03 02/05/25 23:03 02/05/25 23:03
I&O
02/05/25 02/06/25 02/07/25
06:59 06:59 06:59
Intake Total 480 / 480 1140 / 1140
Balance 480 / 480 1140 / 1140
Review of Systems
-
History Source: Patient
Constitutional: Reports No Symptoms
EENT: Reports No Symptoms Reported
Respiratory: Reports No Symptoms
Cardiac: Reports No Symptoms
Abdomen/GI: Reports No Symptoms
Genitourinary: Reports No Symptoms
Musculoskeletal: Reports Edema
Skin: Reports No Symptoms
Neuro: Reports Tremors (improving) and Other (peripheral neuropathy improving)
Physical Exam
-
General: Well Developed and Well Nourished
HEENT: Normocephalic, Atraumatic and Moist Mucous Membranes
Respiratory: Clear to Auscultation and Non Labored Respirations
Cardiac: Regular Rhythm
GI: Soft, Nontender and Nondistended
Musculoskeletal: Other (bilateral LE edema +1 pitting mid-wilkinson)
Skin: Warm and Dry
Neuro: Awake, Alert and Oriented
Psych: Calm
Data Reviewed
-
Total Time Spent with Patient (in minutes): 15
Critical Care Time (in minutes): 35
Medical Tests (Nuc Med, Echo etc): Report Reviewed by me
Labs: Labs Reviewed by me
[2025-02-06 07:25] VITALS: BP 149/55
[2025-02-06 07:25] LABS: Glucose - Point of Care 109 mg/dl (70-99)
[2025-02-06] MEDS: NOVOLOG FLEXPEN-LOW RESISTANCE SC (07:39)
[2025-02-06] MEDS: LEXAPRO 10 MG PO (08:23)
[2025-02-06] MEDS: FEOSOL 325 MG PO (08:23)
[2025-02-06] MEDS: ELIQUIS 2.5 MG PO (08:23)
[2025-02-06] MEDS: VITAMIN B1 100 MG PO (08:23)
[2025-02-06] MEDS: LOW STRENGTH ASPIRIN 81 MG PO (08:23)
[2025-02-06] MEDS: VITAMIN D3 (cholecalciferol) 25 MCG PO (08:23)
[2025-02-06] MEDS: VITAMIN B-12 100 MCG PO (08:23)
[2025-02-06] MEDS: PROTONIX 40 MG PO (08:23)
[2025-02-06] MEDS: NEURONTIN 100 MG PO ×2 (08:23→16:03)
[2025-02-06] MEDS: KCL 20 MEQ PO (08:23)
[2025-02-06] MEDS: TOPROL XL 25 MG PO (08:24)
[2025-02-06] MEDS: DESENEX/MITRAZOL/ZEASORB 1 APPLIC TOPICAL (08:24)
[2025-02-06] MEDS: FOLVITE 1 MG PO (08:24)
[2025-02-06 08:53] LABS: Hematocrit 33.3 % (39.0-52.0); Hemoglobin 11.1 g/dL (13.0-18.0); Mean Corp Hgb Conc. 33.3 g/dL (33.0-37.0); Mean Corpuscular Volume 103.1 fL (80.0-94.0); Nucleated Red Blood Cells % 0 % (-); Platelet Count 183 10^3/uL (130-400); Red Cell Dist. Width 12.7 % (11.5-14.5)
[2025-02-06 09:30] LABS: ALT (SGPT) 35 U/L (0-50); AST (SGOT) 35 U/L (17-59); Albumin 3.8 g/dl (3.5-5.0); Alkaline Phosphatase 101 U/L (38-126); Blood Urea Nitrogen 29 mg/dl (9-20); Calcium 9.8 mg/dl (8.4-10.2); Carbon Dioxide 19 mmol/L (22-30); Chloride 107 mmol/L (98-107); Estimated Creatinine Clearance 38 ml/min; Glucose 103 mg/dl (70-99); Potassium 4.1 mmol/L (3.5-5.1); Sodium 137 mmol/L (135-145); Total Protein 7.0 g/dl (6.3-8.2); eGFR 42.22
[2025-02-06 12:16] LABS: Glucose - Point of Care 170 mg/dl (70-99)
[2025-02-06] MEDS: NOVOLOG FLEXPEN-LOW RESISTANCE 1 UNITS SC (12:57)
[2025-02-06 13:25] VITALS: BP 135/58; PULSE 60; O2SAT 96
--- NOTE | 2025-02-06 14:48 | WOUNDNOTE ---
DAQUAN RN NOTE: Followed up today on patient with chronic gluteal cleft ulcer, suspected old pilonidal cyst site not a stage 2 PI. Less bleeding today, silver alginate and foam dressing applied. Bruise visible on R upper buttock, patient denies falling
and hitting buttocks. Patient using bariatric air cushion, instructed to take upon discharge. Patient going to rehab possibly later today. Called [facility], recommended air mattress or air overlay at rehab. Patient states his appetite is good and
eating protein rich foods. Will update discharge instructions and nurse Cedeon updated on care.
--- NOTE | 2025-02-06 14:50 | CM ---
Patient accepted for discharge to [facility]; please call report to [phone]/fax [phone]. Patient for wheelchair van transportation and CM discussed with liaison. Patient cost being reviewed with patient and cost discussed with patient, he stated
that he did have his credit card to cover cost of transport. CM will continue to follow for discharge planning needs.
Plan; SNF: [facility]
[2025-02-06 15:43] VITALS: BP 121/48
[2025-02-06] MEDS: FLUZONE HIGH-DOSE 2025-26 0.5 ML IM (16:04)
--- NOTE | 2025-02-06 18:38 | W.DCSUMMARY ---
Addendum entered and electronically signed by Natalie Munoz MD 02/07/25 07:10:
Read, reviewed, and agree. See same day progress note for additional details. Time spent coordinating care, DC planning, review of DC plan of care with resident, transition of care, review of records in EMR, med rec, consults, notes, d/w
consultants, nursing, family, and CM = 31 minutes
Original Note:
Discharge Summary
Discharge Data
Date of Admission: 01/30/25
Date of Discharge: 02/06/25
-
Pending Results: No
Hospital Course
Discharging Physician : Carly Chavarria
Disposition : to [facility]
Primary care physician : Radhames Charles
Principal Discharge diagnosis : peripheral neuropathy bilateral lower extremities; alcohol use disorder; prerenal CRISPIN; anterior septal epistaxis
Chronic Discharge diagnosis : ASCVD, severe /HFrEF (35-40% EF), paroxysmal afib (on eliquis), HTN, T2DM, CKD IIIb, hypothyroidism, BPH
Hospital Course :
85yo M with a hx of ASCVD, severe /HFrEF (35-40% EF), paroxysmal afib (on eliquis), HTN, T2DM, CKD IIIb, hypothyroidism, & BPH who presented with weakness, nausea, loss of appetite, & neuropathic pain in bilat LE c/b alcohol abuse. Pt reported he
was drinking 1 quart of vodka every day to manage LE neuropathic pain.
Initial workup found CRISPIN w elevated creatinine elevation of 3.8; nephrotoxic medications were held, including Lasix and Lisinopril. Pt was diagnosed with prerenal acute kidney injury and was started on IV fluids with I/o, weight, and BMP monitoring.
Cardiology was consulted and performed echo on 01/31, which found LVEF 35-40 % with a mean gradient of 35 mmHg and severe aortic stenosis. Cards recommended outpatient follow up for potential TAVR and for potential dobutamine stress test.
During the hospitalization, he had one episode of anterior septal epistaxis. ENT was consulted, and chemical cauterization was done at bedside, and Eliquis was held due to the risk of rebleeding for 3 days and recommended outpatient follow-up in the
future.
For his neuropathy, gabapentin 100 mg TID was started, and the patient's symptoms greatly improved.
He was on an alcohol withdrawal protocol with a phenobarbitone taper during hospitalization. Had no withdrawal sx.
Pt was stable at the time of discharge on 02/06. Had completed phenobarb taper. He was restarted on Lasix 20 mg daily (reduced dose), lisinopril (home dose), and Eliquis 2.5 mg bid. Received CBC/CMP rx to followup with PCP in 1 week.
Important imaging findings :
Abd US 01/31/25:
IMPRESSION:
1. MODERATE DIFFUSE HEPATIC STEATOSIS.
2. No sonographic evidence for cholelithiasis or biliary obstruction.
3. Mild to moderate chronic bilateral renal disease.
Procedure findings : N/A
Discharge Plan
-
Patient Disposition: Usp/SNF
Discharge Diagnosis/Procedures: peripheral neuropathy in bilateral LE; resolved prerenal CRISPIN on CKD IIIb; alcohol withdrawal; severe aortic stenosis; acute right anterior epistaxis
Condition: Good
Diet: Diabetic, Carb Controlled
Activity: No restrictions
Driving Restrictions: As prior to admission
Bathing Restrictions: None
Blood Work: CBC, CMP in 1 week
Specialty Instructions: Weigh Daily- Call MD for wt gain/loss 3 lbs overnight/5 lbs in 1 week
Activity Restrictions/Additional Instructions:
Wound Care Instructions
Coccyx crease wound-clean with saline or soap and water, pat dry, apply piece of silver alginate (remove if MRI ordered), cover with ABD pad or silicone border foam, change daily and as needed for drainage.
Pressure redistributing chair cushion (i.e. Bariatric air chair cushion, Roho).
Frequent buttocks lift/shifts to off load coccyx. Alternate time in recliner with time lying in bed on your side (position on a 30 degree turn every 2 hours, use pillow to position on your side).
Air mattress if available
Follow up at [facility] care center call for an appointment.
Instructions: Alcohol Use Disorder (DC)
Referrals:
Preston De Leon DO [Active, Cardiology] - 02/13/25 3:20 pm
Referral Note: You have an appointment to see Dr. De Leon at the [place] office on 02/13/2025 at 3:20 PM. Please call [phone] if you need to reschedule
Nicho Talamantes MD [Active, Otology] - in one week
Radhames Mariano DO [Family Provider, Internal Medicine] - in one week
Additional Discharge Medication Instructions: - Follow up with your primary care provider in 1 week.
- Follow up with Dr. Talamantes (ENT doctor) in 1 week for evaluation of your nosebleed.
- Follow up with Dr. De Leon (steel rule inspector) on 02/13 at 3:15pm for evaluation of your aortic stenosis/cardiac function. You may need a stress test or you may want to discuss a TAVR (procedure to fix aortic valve stenosis).
- If you experience new bleeding, please hold your eliquis medication and come to the emergency department.
- Please continue taking your lisinopril as usual (5mg daily)
- Please continue taking your lasix at a LOWER dose (20mg daily, instead of 20mg 2x/day)
- Please start taking folic acid & vitamin B1 supplements daily (follow up with your primary care doctor for future prescriptions)
- Please avoid alcohol consumption moving forward, given your chronic kidney disease
Prescriptions:
New
folic acid 1 mg Tablet
1 mg PO DAILY Qty: 30 0RF
thiamine mononitrate (vit B1) 100 mg Tablet
100 mg PO BID Qty: 30 0RF
Continued
escitalopram oxalate 10 MG tablet
10 mg PO DAILY
aspirin 81 MG tablet,chewable
81 mg PO DAILY
ferrous sulfate [FeroSul] 325 mg (65 mg iron) Tablet
325 mg PO DAILY Qty: 30 0RF
Eliquis 2.5 mg Tablet
2.5 mg PO BID
pantoprazole 40 mg tablet,delayed release (DR/EC)
40 mg PO DAILY
metoprolol succinate 25 MG tablet extended release 24 hr
25 mg PO BID
cyanocobalamin (vitamin B-12) [Vitamin B-12] 100 mcg Tablet
100 mcg PO DAILY
lisinopril 5 mg Tablet
5 mg PO DAILY
therapeutic multivitamin Tablet
1 tab PO DAILY
potassium chloride 20 mEq Tablet Extended Release
20 meq PO DAILY
cholecalciferol (vitamin D3) [Vitamin D3] 25 mcg (1,000 unit) Capsule
25 mcg PO DAILY Qty: 0 0RF
ipratropium bromide 42 mcg (0.06 %) [place],Non-Aerosol
2 spray INTRANASAL BID Qty: 0 0RF
rosuvastatin 20 MG tablet
20 mg PO QPM Qty: 90 5RF
Changed
furosemide [Lasix] 20 mg tablet
20 mg PO DAILY Qty: 60 0RF
Discontinued
hydrocortisone acetate [Anusol-HC] 25 mg suppository
25 mg [place] BID Qty: 12 0RF
Discharge Orders:
Discharge Patient (As Directed); Ordered 02/06/25
Ordered By: Carly Barfield
Discharge Date and Time
Discharge Date/Time: 02/06/25 16:52
Print Language: MONGOLIAN
[2025-02-07 15:06] LABS: Vitamin B6 Results 39.4 nmol/L (20.0-125.0)
== END 2025-02-06 16:52 | DRG 897 ==
LOC: 4 WEST ACU 17:50
PROVIDERS: Nurse Practitioner; Physician Assistant Medical; Student in an Organized Health Care Education/Training Program; ADMITTING PHYSICIAN Internal Medicine; ATTENDING PHYSICIAN Internal Medicine; CONSULT PHYSICIAN Otolaryngology; EMERGENCY PHYSICIAN Emergency Medicine; FAMILY PHYSICIAN Internal Medicine
PROC: 093K7ZZ Control Bleeding in Nasal Mucosa and Soft Tissue, Via Natural or Artificial Opening (ICD-10-PCS; 2025-02-03)
DX: F10.130 Alcohol abuse with withdrawal, uncomplicated (principal); N17.9 Acute kidney failure, unspecified; I13.0 Hypertensive heart and chronic kidney disease with heart failure and stage 1 through stage 4 chronic kidney disease, or unspecified chronic kidney disease; I50.32 Chronic diastolic (congestive) heart failure; I44.2 Atrioventricular block, complete; T50.2X5A Adverse effect of carbonic-anhydrase inhibitors, benzothiadiazides and other diuretics, initial encounter; E87.6 Hypokalemia; D75.89 Other specified diseases of blood and blood-forming organs; I25.10 Atherosclerotic heart disease of native coronary artery without angina pectoris; I48.0 Paroxysmal atrial fibrillation; N18.32 Chronic kidney disease, stage 3b; E11.22 Type 2 diabetes mellitus with diabetic chronic kidney disease; E11.40 Type 2 diabetes mellitus with diabetic neuropathy, unspecified; E03.9 Hypothyroidism, unspecified; E66.9 Obesity, unspecified; I35.0 Nonrheumatic aortic (valve) stenosis; Z68.36 Body mass index [BMI] 36.0-36.9, adult; E86.0 Dehydration; G47.33 Obstructive sleep apnea (adult) (pediatric); Z95.0 Presence of cardiac pacemaker; Z79.899 Other long term (current) drug therapy; Z87.891 Personal history of nicotine dependence; Z79.01 Long term (current) use of anticoagulants; Z95.5 Presence of coronary angioplasty implant and graft; R04.0 Epistaxis; N40.0 Benign prostatic hyperplasia without lower urinary tract symptoms; D69.6 Thrombocytopenia, unspecified
CPT/HCPCS: 76700; 80053; 81003; 81015; 82077; 82607; 82746; 82962; 82977; 83036; 83690; 83735; 84100; 84207; 84443; 85025; 85027; 87086; 90662; 93005; 93306; 96360; 97116; 97163; 97166; 97530; 99285; G0008; Q9950